=== PATIENT | male | born 1930 | race Caucasian/White ===

== ENCOUNTER 2017-08-21 00:12 | Inpatient (IN) | payer MEDICARE ==
[2017-08-21 02:22] LABS: INR-International Normal Ratio 1.2; Prothrombin Time 15.6 SEC (12.0-14.7)
[2017-08-21 02:27] LABS: #Eosinphils 0.1 thou/uL (0.0-0.7); #Lymphocytes 1.3 thou/uL (1.20-3.40); #Monocytes 0.6 thou/uL (0.11-0.59); %Basophils 0.2 % (0.0-1.0); %Eosinophils 2.3 % (0.0-10.0); %Lymphocytes 25.4 % (21.0-51.0); %Monocytes 12.2 % (0.0-10.0); Hemoglobin 11.3 g/dL (14.0-18.0); Mean Corpuscular HGB CONC 33.9 g/dL (32.0-36.0); Mean Corpuscular Hemoglobin 32.7 pg (27.0-31.0); Mean Corpuscular Volume 96.3 fl (80.0-94.0); Mean Platelet Volume 6.6 fL (7.4-10.4); Platelet Count 226 thou/uL (130-400); RBC Distribution Width 14.7 % (11.5-14.5); Red Blood Cell (RBC) Count 3.46 mill/uL (4.70-6.10); White Blood Cell (WBC) Count 4.9 thou/uL (4.8-10.8)
[2017-08-21 02:38] LABS: ALT (SGPT) 21 U/L (8-55); AST (SGOT) 54 U/L (5-34); Albumin 4.1 g/dL (3.4-4.8); Alkaline Phosphatase 59 U/L (40-150); Anion Gap 13 mmol/L (10-20); BUN (Urea Nitrogen) 39 mg/dL (8.4-25.7); Bilirubin, Total 0.7 mg/dL (0.2-1.2); CK (CPK) 1038 U/L (30-200); Calc. Creatinine Clearance 0 mL/min (70-130); Calcium 9.2 mg/dL (7.8-10.44); Carbon Dioxide 23 mmol/L (23-31); Chloride 107 mmol/L (98-107); Estimated GFR-MDRD 68; Glucose 123 mg/dL (83-110); Magnesium 2.5 mg/dL (1.6-2.6); Potassium 4.5 mmol/L (3.5-5.1); Protein, Total 7.1 g/dL (5.8-8.1); Sodium 138 mmol/L (136-145)
[2017-08-21 02:42] LABS: Troponin I 0.014 ng/mL (< 0.028)
[2017-08-21 02:44] LABS: CKMB 10.5 ng/mL (0-6.6)
[2017-08-21] MEDS ORDERED: Fentanyl 100 MCG/2 ML VIAL ONE (03:34)
[2017-08-21 04:35] LABS: Bilirubin Small (Negative); Blood, Urine Negative (Negative); Clarity CLEAR (Clear); Glucose, Urine (Dipstick) Negative (Negative); Leukocyte Negative (Negative); Nitrite Negative (Negative); Protein, Urine (Dipstick) Negative (Neg-Trace); Specific Gravity, Urine 1.031 (1.002-1.036)
[2017-08-21 06:09] LABS: Troponin I 0.015 ng/mL (< 0.028)
[2017-08-21] MEDS ORDERED: ISOVUE-370 76%-LOCM 1 ML ONE (06:24)
--- NOTE | 2017-08-21 08:19 | RAD ---
RIGHT KNEE 3 VIEWS: INDICATION: Pain. FINDINGS: No fracture or dislocation. No joint capsular distention. Mild osteoarthritis is present. Enthesop hyte at the tibial tuberosity is seen. IMPRESSION: No acute fracture. POS: [facility]
[2017-08-21 08:42] LABS: Troponin I 0.014 ng/mL (< 0.028)
--- NOTE | 2017-08-21 08:46 | RAD ---
RADIOGRAPH OF CHEST SINGLE VIEW: COMPARISON: 08/27/15. INDICATION: Chest pain. FINDINGS: There is enlargement of the cardiac silhouette and pulmonary vasculature with bilateral perihilar pat evan opacities. No obvious effusion or discrete pneumothorax. IMPRESSION: Evidence of congestive heart failure with edema. POS: [facility]
--- NOTE | 2017-08-21 08:59 | CT ---
PRELIMINARY REPORT/[facility]/EMERGENCY AFTER HOURS PROCEDURE: EXAM: CT Head Without Intravenous Contrast CLINICAL HISTORY: 87 years old, male; Signs and symptoms; Altered mental status/memory loss; Confusion or disorientatio n; Patient HX: AMS TECHNIQUE: Axial computed tomography images of the head/brain without intravenous contrast. COMPARISON: No relevant prior studies available. FINDINGS: Brain: Age appropriate atrophy and small vessel ischemic change. No mass effect, midline shift or ext ra axial fluid collections. Ivan-white matter differentiation is normal. No hemorrhage. Ventricles: Unremarkable. No ventriculomegaly. Bones/joints: Unremarkable. No acute fracture. Soft tissues: Unremarkable. Vasculature: Carotid atherosclerotic calcification. Sinuses: Mild mucosal thickening throughout the visualized paranasal sinuses. Mastoid air cells: Unremarkable as visualized. No mastoid effusion. IMPRESSION: No acute findings. Thank you for allowing us to participate in the care of your patient. Dictated and Authenticated by: Jorge Means MD 08/21/2017 5:46 AM Central Time ([place] & [place]) FINAL REPORT CT HEAD NONCONTRAST: FINDINGS/IMPRESSION: I agree with the preliminary interpretation. No acute intracranial hemorrhage or mass effect. POS: [facility]
--- NOTE | 2017-08-21 09:28 | CT ---
PRELIMINARY REPORT/[facility]/EMERGENCY AFTER HOURS PROCEDURE: EXAM: CT Abdomen and Pelvis With Intravenous Contrast CLINICAL HISTORY: 87 years old, male; Pain; Abdominal pain; Generalized TECHNIQUE: Axial computed tomography images of the abdomen and pelvis with intravenous contrast. Coronal reformatted images were created and reviewed. CONTRAST: 100 mL of ISOVUE administered intravenously. COMPARISON: No relevant prior studies available. FINDINGS: Lower thorax: Atelectasis and linear scarring at the lung bases. The heart is enlarged. ABDOMEN: Liver: There is diffuse fatty infiltration of the liver. No masses. Gallbladder and bile ducts: Unremarkable. No calcified stones. No ductal dilation. Pancreas: Unremarkable. No mass. No ductal dilation. Spleen: Unremarkable. No splenomegaly. Adrenals: Unremarkable. No mass. Kidneys and ureters: Unremarkable. No solid mass. No hydronephrosis. There is a retroaortic left nelida l vein. Stomach and bowel: There is a fecal impaction in the rectum with more proximal constipation throughou t the colon. No obstruction. No mucosal thickening. Appendix: No findings to suggest acute appendicitis. PELVIS: Bladder: Unremarkable. No mass. Reproductive: Unremarkable as visualized. ABDOMEN and PELVIS: Intraperitoneal space: Unremarkable. No free air. No significant fluid collection. Bones/joints: There is an old compression fracture of the superior endplate of L2 with approximately 25% loss of height. No dislocation. Soft tissues: Unremarkable. Vasculature: Unremarkable. No abdominal aortic aneurysm. Lymph nodes: Unremarkable. No enlarged lymph nodes. IMPRESSION: Fecal impaction in the rectum with constipation throughout the colon. Cardiomegaly. Fatty liver. Thank you for allowing us to participate in the care of your patient. Dictated and Authenticated by: Jorge Means MD 08/21/2017 4:07 AM Central Time ([place] & [place]) FINAL REPORT CT ABDOMEN AND PELVIS WITH IV CONTRAST: Liver, spleen, and pancreas are unremarkable. Kidneys unremarkable. No hydronephrosis. Small bowel loops are normal caliber with no evidence of small bowel obstruction. Stool throughout the colon. Aorta normal caliber. I am in agreement with the preliminary report. POS: [facility]
[2017-08-21] MEDS ORDERED: Acetaminophen 325 MG TAB PO PRN (11:23)
[2017-08-21] MEDS ORDERED: Furosemide 40 MG/4 ML VIAL ONE (13:37)
--- NOTE | 2017-08-21 15:27 | EKG ---
Test Reason : Blood Pressure : / mmHG Vent. Rate : 085 BPM Atrial Rate : 300 BPM P-R Int : 000 ms QRS Dur : 078 ms QT Int : 362 ms P-R-T Axes : 000 -24 -19 degrees QTc Int : 430 ms Atrial fibrillation Abnormal ECG Confirmed by NEO GUERRERO M.D. ([id number]), movie editor GUERDA ALONSO ([id number]) on 08/21/2017 3:26:29 PM Referred By: Confirmed By:NEO GUERRERO M.D.
--- NOTE | 2017-08-21 18:55 | HP ---
DATE O ADMISSION: 08/21/2017 CHIEF COMPLAINT: Unclear. HISTORY OF PRESENT ILLNESS: The patient is an 87-year-old male, who is admitted to the [facility] with pneumonia, which was found after he was transferred from his home by the EMS. Apparently, he called EMS and he was taken to the emergency room for further evaluation with complaints of right knee and right-sided back pain. The message from the emergency room physician was that he might hav e pneumonia, but based on the current chest x-ray, this is more consistent with some mild CHF. His B [employer] DES[employer] CONSULT[employer] was mildly elevated. Clinically, it is difficult to assess him since he does not let me evaluate him and do my examination. PAST MEDICAL HISTORY: 1. Atrial fibrillation. 2. Dementia. PAST SURGICAL HISTORY: Appendectomy. ALLERGIES: None. SOCIAL HISTORY: Unknown. FAMILY HISTORY: Unknown. REVIEW OF SYSTEMS: Unobtainable since the patient does not want to cooperate. PHYSICAL EXAMINATION: GENERAL: He is almost combative not let me examined him. VITAL SIGNS: His blood pressure is 92/54, pulse is 75, respiratory rate is 17, and pulse oximetry is 95% on room air, and temperature is 99.7. LUNGS: Rales scattered at both bases. No wheezing. HEART: S1 and S2 normal. No S3, no S4. ABDOMEN: Soft, nondistended. Neurological and rest of the examination was postponed since he is not very cooperative. LABORATORY DATA: Showed normal electrolytes, BUN of 39, creatinine 1.04, glucose 123, AST 54, creati nine 1, CO2 of 8, BNP 511. Troponin 0.015 and 0.014. TSH 1.75. The rest of chemistry within normal limits, white count of 4.9, hemoglobin 11.3, hematocrit 33.3, platelet count is 226, MCV is 96.3. U rinalysis showed small amount of bilirubin, otherwise was within normal limits. IMAGES: Chest x-ray showed evidence of some congestive heart failure. CT of the abdomen and pelvis did not reveal any significant abnormalities except for fatty liver and some fecal impaction in the r ectum. X-ray of the knee did not show any fracture or any other dislocation and brain CT was done an d it did not show any acute abnormalities. All images were personally reviewed by me. IMPRESSION: 1. Most likely some congestive heart failure. 2. Right knee pain and back pain, which is chronic based on documentation we had in our hospital vanda e. 3. Atrial fibrillation with controlled ventricular rate. 4. Coronary artery disease and history of fall in remote time. PLAN: Admission for further evaluation to telemetry since he is in atrial fibrillation. Condition i s fair. Activity is bed rest and bathroom privileges with assistance, fall precautions. The patient received 2 gram of Rocephin in the emergency room. I do not think we need to continue that, I do no t see any evidence of infection/pneumonia. I would like to probably obtain his echo and diurese him with IV Lasix. We will try to find out more about his medical status with a subsequent serial encoun ters. We will do DVT prophylaxis and PUD prophylaxis.
[2017-08-21] MEDS: Furosemide 40 MG/4 ML VIAL SLOW IVP SCH (23:44)
[2017-08-21 23:59] VITALS: BMI 25.9
[2017-08-22] MEDS: Sodium Chloride 0.9% 1,000 ML IV SCH ×3 (00:25→11:33)
[2017-08-22] MEDS: cefTRIAXone\\ROCEPHIN 1 GM, Syringe 0.4 ML in Sterile Water 9.6 ML SLOW IVP SCH (06:34)
[2017-08-22] MEDS: Furosemide 40 MG/4 ML VIAL SLOW IVP SCH ×2 (07:09→14:25)
[2017-08-22] MEDS: Enoxaparin Sodium 40 MG/0.4 ML SYRINGE SC SCH (08:45)
[2017-08-22] MEDS ORDERED: cefTRIAXone\\ROCEPHIN 1 GM in Sodium Chloride 0.9% 100 ML IVPB SCH (09:00)
[2017-08-22] MEDS ORDERED: Sodium Chloride 0.9% 1,000 ML IV SCH ×3 (09:29→16:44)
[2017-08-22] MEDS ORDERED: Docusate 100 MG CAP PO PRN (09:33)
[2017-08-22] MEDS ORDERED: Bisacodyl 10 MG SUPP PR PRN (09:33)
[2017-08-22] MEDS ORDERED: hydrALAZINE 20 MG/ML VIAL SLOW IVP PRN (09:33)
[2017-08-22] MEDS ORDERED: Fleet Enema 133 ML BOT PR SCH (09:45)
[2017-08-22] MEDS: Fleet Enema 133 ML BOT PR SCH ×3 (11:32→22:54)
[2017-08-22 12:02] LABS: Anion Gap 11 mmol/L (10-20); BUN (Urea Nitrogen) 28 mg/dL (8.4-25.7); Band 1 % (5-11); Calc. Creatinine Clearance 45 mL/min (70-130); Calcium 8.9 mg/dL (7.8-10.44); Carbon Dioxide 30 mmol/L (23-31); Chloride 105 mmol/L (98-107); Eosinophils 7 % (0-10); Estimated GFR-MDRD 55; Glucose 99 mg/dL (83-110); Lymphocytes 42 % (21-51); MDiff Complete? YES; Mean Corpuscular HGB CONC 33.8 g/dL (32.0-36.0); Mean Corpuscular Hemoglobin 33.2 pg (27.0-31.0); Mean Corpuscular Volume 98.2 fl (80.0-94.0); Mean Platelet Volume 6.1 fL (7.4-10.4); Monocytes 6 % (0-10); Neutrophil 44 % (42-75); Platelet Count 230 thou/uL (130-400); Potassium 3.7 mmol/L (3.5-5.1); RBC Distribution Width 14.6 % (11.5-14.5); Sodium 142 mmol/L (136-145); Toxic Granulation SLIGHT
[2017-08-22] MEDS: traMADol HCl 50 MG TAB PO PRN (13:11)
--- NOTE | 2017-08-22 15:04 | CT ---
CHEST CT NONCONTRAST: Clinical history: Shortness of breath. Pneumonia. FINDINGS: There is enlargement of the cardiac chambers. There are bilateral subpleural patchy ground glass opac ities as well as interstitial septal thickening. There is a focus of reticular nodularity of the righ t lung adjacent the right minor fissure within the right upper lobe. Trace pleural fluid versus pleur al thickening present bilaterally. The osseous structures reveal degenerative change. There is partia l visualization of a compression deformity of the L2 segment. Scattered vascular calcification is pre sent. IMPRESSION: 1. Scattered areas of pulmonary parenchymal opacity as above, some of which may be related to atelect asis although there is a component of reticular nodularity that suggests an atypical infection. Follo w up to resolution is recommended. 2. Prominent cardiac chambers and scattered vascular disease. 3. Incidental note of cholelithiasis. Correlate clinically. POS: [facility]
--- NOTE | 2017-08-22 16:47 | PDOC.PN ---
- Subjective Encounter Start Date: 08/22/17 Encounter Start Time: 16:45 breathing better some cough no n/v no f/c - Objective Resuscitation Status: Resuscitation Status DNR:Do Not Resuscitate MAR Reviewed: Yes Vital Signs & Weight: Vital Signs (12 hours) Temp Pulse Resp BP Pulse Ox 08/22/17 12:50 80 18 111/68 98 08/22/17 08:35 97.8 F 84 16 118/68 95 Weight Weight 165 lb 9.6 oz I&O: 08/21/17 08/22/17 08/23/17 06:59 06:59 06:59 Intake Total 900 600 Output Total 600 Balance 300 600 Result Diagrams: 08/22/17 11:33 08/22/17 11:33 Phys Exam - Physical Examination Constitutional: NAD HEENT: PERRLA Neck: no JVD coarse bs, dependent crackles Cardiovascular: RRR Gastrointestinal: non-tender Musculoskeletal: pulses present Neurological: moves all 4 limbs Psychiatric: A&O x 3 Dx/Plan (1) Acute diastolic CHF (congestive heart failure) Code(s): I50.31 - ACUTE DIASTOLIC (CONGESTIVE) HEART FAILURE Status: Acute (2) Constipation Code(s): K59.00 - CONSTIPATION, UNSPECIFIED Status: Acute (3) Atypical pneumonia Code(s): J18.9 - PNEUMONIA, UNSPECIFIED ORGANISM Status: Acute (4) Physical deconditioning Code(s): R53.81 - OTHER MALAISE Status: Acute (5) CAD (coronary artery disease) Code(s): I25.10 - ATHSCL HEART DISEASE OF [place] CORONARY ARTERY W/O ANG PCTRS Status: Chronic - Plan * f/u cultures * f/u lytes * symp rx * pt/ot
[2017-08-22] MEDS: Atorvastatin Calcium 20 MG TAB PO SCH (22:54)
[2017-08-23] MEDS: traMADol HCl 50 MG TAB PO PRN ×2 (05:55→17:11)
[2017-08-23] MEDS: cefTRIAXone\\ROCEPHIN 1 GM, Syringe 0.4 ML in Sterile Water 9.6 ML SLOW IVP SCH (05:55)
[2017-08-23 07:36] LABS: #Eosinphils 0.1 thou/uL (0.0-0.7); #Lymphocytes 1.1 thou/uL (1.20-3.40); #Monocytes 0.4 thou/uL (0.11-0.59); #Neutrophils 1.4 thou/uL (1.40-6.50); %Basophils 0.4 % (0.0-1.0); %Eosinophils 3.7 % (0.0-10.0); %Lymphocytes 36.4 % (21.0-51.0); %Monocytes 13.2 % (0.0-10.0); %Neutrophils 46.2 % (42.0-75.0); Hemoglobin 12.3 g/dL (14.0-18.0); Mean Corpuscular HGB CONC 34.2 g/dL (32.0-36.0); Mean Corpuscular Hemoglobin 33.2 pg (27.0-31.0); Mean Platelet Volume 6.4 fL (7.4-10.4); Platelet Count 231 thou/uL (130-400); RBC Distribution Width 14.3 % (11.5-14.5); Red Blood Cell (RBC) Count 3.71 mill/uL (4.70-6.10); White Blood Cell (WBC) Count 2.9 thou/uL (4.8-10.8)
[2017-08-23 07:53] LABS: Digoxin Less than 0.15 ng/mL (0.8-2.0)
[2017-08-23 07:56] LABS: Albumin 3.7 g/dL (3.4-4.8); Anion Gap 15 mmol/L (10-20); BUN (Urea Nitrogen) 29 mg/dL (8.4-25.7); CK (CPK) 218 U/L (30-200); Calc. Creatinine Clearance 57 mL/min (70-130); Calcium 8.4 mg/dL (7.8-10.44); Carbon Dioxide 23 mmol/L (23-31); Chloride 106 mmol/L (98-107); Estimated GFR-MDRD 73; Glucose 104 mg/dL (83-110); Phosphorus 3.3 mg/dL (2.3-4.7); Potassium 3.8 mmol/L (3.5-5.1); Sodium 140 mmol/L (136-145)
[2017-08-23] MEDS: Digoxin 0.125 MG TAB PO SCH (08:38)
[2017-08-23] MEDS: Enoxaparin Sodium 40 MG/0.4 ML SYRINGE SC SCH (08:39)
--- NOTE | 2017-08-23 18:33 | PDOC.PN ---
- Subjective Encounter Start Date: 08/23/17 Encounter Start Time: 18:31 breathing better on puree diet still slow to answer question no f/c - Objective Resuscitation Status: Resuscitation Status DNR:Do Not Resuscitate MAR Reviewed: Yes Vital Signs & Weight: Vital Signs (12 hours) Temp Pulse Pulse Pulse Resp BP BP 08/23/17 15:57 98.3 F 73 17 08/23/17 14:00 87 95 127/73 139/87 08/23/17 11:15 98.2 F 67 17 08/23/17 08:38 67 08/23/17 07:05 97.6 F 72 18 BP BP Pulse Ox 08/23/17 15:57 126/80 96 08/23/17 14:00 08/23/17 11:15 99/59 L 93 L 08/23/17 08:38 08/23/17 07:05 116/62 95 Weight Weight 162 lb 11.2 oz I&O: 08/22/17 08/23/17 08/24/17 06:59 06:59 06:59 Intake Total 900 2765 Output Total 600 1050 Balance 300 1715 Result Diagrams: 08/23/17 07:24 08/23/17 07:24 Phys Exam - Physical Examination Constitutional: NAD HEENT: PERRLA Neck: no JVD coarse bs Cardiovascular: no significant murmur Gastrointestinal: non-tender Musculoskeletal: pulses present Neurological: moves all 4 limbs Psychiatric: A&O x 3 Dx/Plan (1) Acute diastolic CHF (congestive heart failure) Code(s): I50.31 - ACUTE DIASTOLIC (CONGESTIVE) HEART FAILURE Status: Acute (2) Constipation Code(s): K59.00 - CONSTIPATION, UNSPECIFIED Status: Acute (3) Atypical pneumonia Code(s): J18.9 - PNEUMONIA, UNSPECIFIED ORGANISM Status: Acute (4) Physical deconditioning Code(s): R53.81 - OTHER MALAISE Status: Acute (5) CAD (coronary artery disease) Code(s): I25.10 - ATHSCL HEART DISEASE OF [place] CORONARY ARTERY W/O ANG PCTRS Status: Chronic - Plan * cont diuresis * cont abx * deconditioned- family wants hh instead of snf * monitor mental status
[2017-08-24] MEDS: Atorvastatin Calcium 20 MG TAB PO SCH ×2 (02:23→22:54)
[2017-08-24 05:18] LABS: #Basophils 0.1 thou/uL (0.0-0.2); #Eosinphils 0.2 thou/uL (0.0-0.7); #Lymphocytes 1.4 thou/uL (1.20-3.40); #Monocytes 0.4 thou/uL (0.11-0.59); %Basophils 2.2 % (0.0-1.0); %Eosinophils 5.2 % (0.0-10.0); %Lymphocytes 45.4 % (21.0-51.0); %Monocytes 13.2 % (0.0-10.0); %Neutrophils 33.9 % (42.0-75.0); Hemoglobin 12.3 g/dL (14.0-18.0); Mean Corpuscular HGB CONC 33.1 g/dL (32.0-36.0); Mean Corpuscular Hemoglobin 32.3 pg (27.0-31.0); Mean Corpuscular Volume 97.5 fl (80.0-94.0); Mean Platelet Volume 6.1 fL (7.4-10.4); Platelet Count 235 thou/uL (130-400); RBC Distribution Width 14.4 % (11.5-14.5)
[2017-08-24] MEDS: cefTRIAXone\\ROCEPHIN 1 GM, Syringe 0.4 ML in Sterile Water 9.6 ML SLOW IVP SCH (05:19)
[2017-08-24 05:41] LABS: Albumin 3.5 g/dL (3.4-4.8); Anion Gap 15 mmol/L (10-20); BUN (Urea Nitrogen) 30 mg/dL (8.4-25.7); CK (CPK) 141 U/L (30-200); Calc. Creatinine Clearance 56 mL/min (70-130); Calcium 8.8 mg/dL (7.8-10.44); Carbon Dioxide 22 mmol/L (23-31); Chloride 105 mmol/L (98-107); Estimated GFR-MDRD 72; Glucose 90 mg/dL (83-110); Phosphorus 2.9 mg/dL (2.3-4.7); Potassium 3.8 mmol/L (3.5-5.1); Sodium 138 mmol/L (136-145)
[2017-08-24] MEDS: Digoxin 0.125 MG TAB PO SCH (09:53)
[2017-08-24] MEDS: Enoxaparin Sodium 40 MG/0.4 ML SYRINGE SC SCH (09:54)
[2017-08-24] MEDS ORDERED: Sodium Chloride 0.9% 250 ML IVPB SCH (15:30)
[2017-08-24 15:44] LABS: Digoxin 0.31 ng/mL (0.8-2.0)
--- NOTE | 2017-08-24 16:48 | PDOC.PN ---
- Subjective Encounter Start Date: 08/24/17 Encounter Start Time: 16:47 pt breathing better no f/c no n/v more alert - Objective Resuscitation Status: Resuscitation Status DNR:Do Not Resuscitate MAR Reviewed: Yes Vital Signs & Weight: Vital Signs (12 hours) Temp Pulse Resp BP BP Pulse Ox 08/24/17 14:54 95/61 08/24/17 11:23 96.2 F L 66 16 86/57 L 97 08/24/17 09:53 69 08/24/17 07:05 98.1 F 73 12 142/89 H 99 Weight Weight 166 lb 3.2 oz I&O: 08/23/17 08/24/17 08/25/17 06:59 06:59 06:59 Intake Total 2765 0 Output Total 1050 Balance 1715 0 Result Diagrams: 08/24/17 04:20 08/24/17 04:20 Phys Exam - Physical Examination Constitutional: NAD HEENT: PERRLA Neck: no JVD coarse bs Cardiovascular: no significant murmur Gastrointestinal: non-tender Musculoskeletal: pulses present Neurological: moves all 4 limbs Psychiatric: A&O x 3 Dx/Plan (1) Acute diastolic CHF (congestive heart failure) Code(s): I50.31 - ACUTE DIASTOLIC (CONGESTIVE) HEART FAILURE Status: Acute Comment: ef-55% (2) Constipation Code(s): K59.00 - CONSTIPATION, UNSPECIFIED Status: Acute (3) Atypical pneumonia Code(s): J18.9 - PNEUMONIA, UNSPECIFIED ORGANISM Status: Acute (4) Physical deconditioning Code(s): R53.81 - OTHER MALAISE Status: Acute (5) CAD (coronary artery disease) Code(s): I25.10 - ATHSCL HEART DISEASE OF [place] CORONARY ARTERY W/O ANG PCTRS Status: Chronic - Plan * had e/o hypotension- responded to 250 cc of ns. monitor bp. hold diuresis * cont abx * deconditioned- family wants hh instead of snf * monitor mental status * d/c home in am if doing better
[2017-08-24] MEDS ORDERED: Haloperidol Lactate 5 MG/ML VIAL SLOW IVP SCH (22:45)
[2017-08-25] MEDS: cefTRIAXone\\ROCEPHIN 1 GM, Syringe 0.4 ML in Sterile Water 9.6 ML SLOW IVP SCH (05:37)
[2017-08-25 06:51] LABS: Anion Gap 12 mmol/L (10-20); BUN (Urea Nitrogen) 25 mg/dL (8.4-25.7); CK (CPK) 108 U/L (30-200); Calc. Creatinine Clearance 65 mL/min (70-130); Calcium 8.7 mg/dL (7.8-10.44); Carbon Dioxide 24 mmol/L (23-31); Chloride 106 mmol/L (98-107); Estimated GFR-MDRD 82; Glucose 111 mg/dL (83-110); Potassium 3.9 mmol/L (3.5-5.1); Sodium 138 mmol/L (136-145)
[2017-08-25] MEDS: Enoxaparin Sodium 40 MG/0.4 ML SYRINGE SC SCH (08:55)
[2017-08-25] MEDS: Digoxin 0.125 MG TAB PO SCH (08:55)
--- NOTE | 2017-08-25 13:24 | PDOC.PN ---
- Subjective Encounter Start Date: 08/25/17 Encounter Start Time: 08:40 Pt seen for followup re: bradycardia. Denies chest pain or shortness of breath. - Objective Resuscitation Status: Resuscitation Status DNR:Do Not Resuscitate MAR Reviewed: Yes Vital Signs & Weight: Vital Signs (12 hours) Temp Pulse Resp BP Pulse Ox 08/25/17 12:23 97.0 F L 63 16 103/62 100 08/25/17 08:55 59 L 08/25/17 08:00 98.1 F 59 L 18 145/82 H 99 08/25/17 04:00 98.8 F 51 L 18 109/64 100 Weight Weight 167 lb 8 oz I&O: 08/24/17 08/25/17 08/26/17 06:59 06:59 06:59 Intake Total 0 0 120 Balance 0 0 120 Result Diagrams: 08/24/17 04:20 08/25/17 05:51 EKG Reviewed by me: Yes (Tele: a. fib with slow ventricular response) Phys Exam - Physical Examination Constitutional: NAD HEENT: moist MMs Neck: supple Respiratory: clear to auscultation bilateral Cardiovascular: no rub, irregular Gastrointestinal: soft Neurological: moves all 4 limbs Psychiatric: normal affect Dx/Plan (1) Bradycardia Code(s): R00.1 - BRADYCARDIA, UNSPECIFIED Status: Acute (2) Atypical pneumonia Code(s): J18.9 - PNEUMONIA, UNSPECIFIED ORGANISM Status: Acute (3) Atrial fibrillation Code(s): I48.91 - UNSPECIFIED ATRIAL FIBRILLATION Status: Chronic Qualifiers: Atrial fibrillation type: chronic Qualified Code(s): I48.2 - Chronic atrial fibrillation Comment: Rate control only, anticoagulation contraindicated due to fall risk. (4) CAD (coronary artery disease) Code(s): I25.10 - ATHSCL HEART DISEASE OF [place] CORONARY ARTERY W/O ANG PCTRS Status: Chronic - Plan continue antibiotics, PT/OT, out of bed/ambulate * . Continue levofloxacin. Consult cardiology re: a. fib with slow ventricular response. Eventual discharge to home with home health services. Review of Systems - Review of Systems Respiratory: negative: Cough, Dry, Shortness of Breath, Hemoptysis, SOB with Excertion, Pleuritic Pain, Sputum, Wheezing Cardiovascular: negative: chest pain, palpitations, orthopnea, paroxysmal nocturnal dyspnea, edema, light headedness - Medications/Allergies Allergies/Adverse Reactions: Allergies Allergy/AdvReac Type Severity Reaction Status Date / Time No Known Drug Allergies Allergy Verified 08/21/17 23:55 Medications: Current Medications Acetaminophen (Tylenol) 650 mg PO Q4H PRN PRN Reason: Headache/Fever or Pain Atorvastatin Calcium (Lipitor) 20 mg PO HS [facility] Last Admin: 08/24/17 22:54 Dose: Not Given Bisacodyl (Dulcolax) 10 mg AR DAILYPRN PRN PRN Reason: Constipation Digoxin (Lanoxin) 0.125 mg PO DAILY [facility] Last Admin: 08/25/17 08:55 Dose: 0.125 mg Docusate Sodium (Colace) 100 mg PO BIDPRN PRN PRN Reason: Constipation Enoxaparin Sodium (Lovenox) 40 mg SC 0900 [facility] Last Admin: 08/25/17 08:55 Dose: 40 mg Hydralazine HCl (Apresoline) 10 mg SLOW IVP Q4H PRN PRN Reason: Systolic BP > 180 Ceftriaxone Sodium 1 gm/ (Syringe 0.4 ml/ Sterile Water) 10 mls @ 120 mls/hr SLOW IVP 0500 [facility] Last Admin: 08/25/17 05:37 Dose: 10 mls Levofloxacin (Levaquin) 500 mg PO 0600 [facility] Last Admin: 08/25/17 05:42 Dose: Not Given Tramadol HCl (Ultram) 50 mg PO Q6H PRN PRN Reason: Pain Last Admin: 08/23/17 17:11 Dose: 50 mg
[2017-08-25] MEDS: Atorvastatin Calcium 20 MG TAB PO SCH (20:02)
[2017-08-26] MEDS: cefTRIAXone\\ROCEPHIN 1 GM, Syringe 0.4 ML in Sterile Water 9.6 ML SLOW IVP SCH (05:44)
--- NOTE | 2017-08-26 06:02 | CON ---
DATE OF CONSULTATION: 08/25/2017 REASON FOR CONSULTATION: Bradycardia. HISTORY OF PRESENT ILLNESS: Mr. Zhao is a pleasant 87-year-old gentleman with history of dementi a and what appears to be chronic atrial fibrillation and has had some mild bradycardia here. Patient was admitted to the hospital on 08/21/2017, at that time, was having some difficulty breathing. It was decided that he was probably in mild congestive heart failure. The patient was given some diuret ics. The patient was also given some antibiotics, has been feeling well now, but he has had some mild karol ycardia, the last day or two. He is on digoxin. Other history is somewhat limited due to his dementia. PAST MEDICAL HISTORY: 1. Atrial fibrillation. 2. Dementia. PAST SURGICAL HISTORY: Appendectomy. ALLERGIES: None known. FAMILY HISTORY: Unknown. REVIEW OF SYSTEMS: Not obtainable. He is not able to give review of systems. PHYSICAL EXAMINATION: GENERAL: A relaxed elderly gentleman resting comfortably in no distress. He thinks it is in the 190 0s. He does not know where he is. VITAL SIGNS: Pulse is low 60s, irregular. HEENT: Eyes, sclerae nonicteric. Mouth, mucous membranes moist. NECK: Supple, no lymphadenopathy. LUNGS: Clear, no wheezing, rales, or rhonchi. CARDIAC: Irregularly, irregular. No murmur, rub, or gallop. ABDOMEN: Soft, nontender, no hepatosplenomegaly. EXTREMITIES: Warm, dry, no clubbing, no cyanosis, or edema. LABORATORY AND X-RAY FINDINGS: Digoxin level was low at 0.31. Echocardiogram revealed an ejection f raction of 55% to 60%, mildly enlarged left atrium, moderate to severe tricuspid insufficiency. ASSESSMENT: 1. Congestive heart failure, diastolic with a BNP of 511 on admission. 2. Heart rate below 60 at times on low dose digoxin. PLAN: 1. Stop digoxin. 2. Appears to be a poor candidate for anticoagulation with severe dementia. 3. Add a daily diuretic. No other recommendations. Patient could be released home from the [facility], I suspect for placement some place.
[2017-08-26] MEDS ORDERED: Potassium Chloride 10 MEQ TAB PO SCH (08:00)
[2017-08-26] MEDS ORDERED: Furosemide 20 MG TAB PO SCH (09:00)
[2017-08-26] MEDS: Enoxaparin Sodium 40 MG/0.4 ML SYRINGE SC SCH (09:12)
--- NOTE | 2017-08-26 10:21 | DIS ---
DATE OF ADMISSION: 08/21/2017 DATE OF DISCHARGE: 08/26/2017 PRIMARY CARE PHYSICIAN: Arjun Murphy MD DISCHARGE DIAGNOSES: 1. Atypical pneumonia. 2. Congestive heart failure. CONDITION OF PATIENT ON THE DAY OF DISCHARGE: Stable. I assessed Mr. Zhao on the day of the dis charge. He denies any chest pain or shortness of breath. Vital signs are stable. S1 and S2 are hea rd, irregular. Lungs are clear to auscultation bilaterally. DISCHARGE MEDICATIONS: Aspirin 81 mg daily, Lasix 20 mg daily, potassium chloride 10 mEq daily, levo floxacin 500 mg daily for 9 more days, Zocor 40 mg at bedtime. CONSULTATIONS DURING THIS HOSPITALIZATION: Cardiology, Dr. Schroeder. HOSPITAL COURSE: Mr. Zhao is a pleasant 87-year-old gentleman who was admitted to [facility] for congestive heart failure as well as possible atypical pneumonia. CT scan of the chest done on 08/22/2017, showed scattered areas of pulmonary parenchymal opacity, some of which may be related to atelectasis, although there was a component of reticulate nodularity that suggested an atypical infection. He also had cholelithiasis. A 2D echocardiogram on 08/22/2017, showed left ventricular ejection fraction of 55% to 60%, mildly dilated left atrium, moderately enlarged right at rium, mildly enlarged right ventricle, normal left ventricular size, moderate to severe tricuspid reg urgitation, and mild to moderate mitral regurgitation. He improved with diuretics as well as antibiotics. I assumed his care on 08/25/2017. He has a history of chronic atrial fibrillation. On 08/25/2017, [place] was noted to be bradycardic. He was seen by Cardiology Service. Digoxin was discontinued, with im provement of his heart rate. Cardiology felt that he was a poor candidate for anticoagulation alexmarck e of severe dementia. He was started on diuretic as well as potassium replacement and is being disch arged home in a stable condition. He will need home health arranged through his primary care physici an's office. On 08/25/2017, he had normal electrolytes, normal creatinine. On 08/24/2017, he had a white count 30 00, hemoglobin 12.3 and platelet count 235,000. During this hospitalization, he had a normal TSH, BN P elevated at 511, normal troponin I, CK elevated at 1038 on 08/21/2017, and normal lactic acid. Many times for allowing me to participate in your patient's care. Please feel free to contact me wit h any questions or concerns. DISCHARGE DESTINATION: Home. TOTAL AMOUNT OF TIME SPENT COORDINATING THIS DISCHARGE: 32 minutes.
[2017-08-26 12:42] VITALS: BP 101/61; TEMP 97.1
== END 2017-08-26 16:23 | disposition home health service (06) | DRG 291 ==
LOC: ERS 00:12 → ERHOLD 04:48 → 2NO 21:15
PROVIDERS: ADMIT Internal Medicine; ATTEND Internal Medicine
DX: I50.31 Acute diastolic (congestive) heart failure (principal); J18.9 Pneumonia, unspecified organism; M62.82 Rhabdomyolysis; I48.2 Chronic atrial fibrillation; I08.1 Rheumatic disorders of both mitral and tricuspid valves; F03.90 Unspecified dementia, unspecified severity, without behavioral disturbance, psychotic disturbance, mood disturbance, and anxiety; M25.561 Pain in right knee; G89.29 Other chronic pain; M54.9 Dorsalgia, unspecified; I25.10 Atherosclerotic heart disease of native coronary artery without angina pectoris; Z91.81 History of falling; R00.1 Bradycardia, unspecified; K59.00 Constipation, unspecified
CPT/HCPCS: 36415; 51701; 70450; 71045; 71250; 74177; 80048; 80053; 80069; 80162; 81003; 82550; 82553; 83605; 83735; 83880; 84443; 84484; 85025; 85610; 87040; 87086; 93005; 93306; 96361; 96365; 96375; A4216; G8978-GP-CL; G8979-GP-CJ; G8996-GN-CJ; G8997-GN-CJ; J0696; J1630; J1650; J1940; J3010; J7050

== ENCOUNTER 2017-08-28 10:14 | Emergency (ER) | payer MEDICARE ==
[2017-08-28 11:41] LABS: Hemoglobin 12.4 g/dL (14.0-18.0); Mean Corpuscular HGB CONC 33.6 g/dL (32.0-36.0); Mean Corpuscular Hemoglobin 32.5 pg (27.0-31.0); Mean Corpuscular Volume 96.7 fl (80.0-94.0); Mean Platelet Volume 6.1 fL (7.4-10.4); Platelet Count 232 thou/uL (130-400); RBC Distribution Width 14.3 % (11.5-14.5); Red Blood Cell (RBC) Count 3.83 mill/uL (4.70-6.10); White Blood Cell (WBC) Count 2.8 thou/uL (4.8-10.8)
[2017-08-28 11:42] LABS: INR-International Normal Ratio 1.2; PTT 37.4 SEC (22.9-36.1); Prothrombin Time 15.7 SEC (12.0-14.7)
[2017-08-28 12:00] LABS: ALT (SGPT) 44 U/L (8-55); AST (SGOT) 57 U/L (5-34); Alkaline Phosphatase 58 U/L (40-150); Anion Gap 16 mmol/L (10-20); BUN (Urea Nitrogen) 35 mg/dL (8.4-25.7); Bilirubin, Total 0.7 mg/dL (0.2-1.2); CK (CPK) 263 U/L (30-200); Calc. Creatinine Clearance 0 mL/min (70-130); Calcium 8.9 mg/dL (7.8-10.44); Carbon Dioxide 21 mmol/L (23-31); Chloride 107 mmol/L (98-107); Estimated GFR-MDRD 68; Glucose 110 mg/dL (83-110); Potassium 4.1 mmol/L (3.5-5.1); Sodium 140 mmol/L (136-145)
[2017-08-28 12:02] LABS: CKMB 4.9 ng/mL (0-6.6); Troponin I Less than 0.010 ng/mL (< 0.028)
[2017-08-28 12:09] LABS: Lymphocytes 22 % (21-51); MDiff Complete? YES; Monocytes 14 % (0-10); Neutrophil 64 % (42-75); PLT Morphology Comment Appears Adequate; RBC Morphology Normal
--- NOTE | 2017-08-28 12:12 | RAD ---
UPRIGHT PORTABLE CHEST 1 VIEW: Date: 08/28/17 HISTORY: 87-year-old male with altered mental status following a fall at home. COMPARISON: 08/21/17. FINDINGS: There is rotation to the left. Minimal cardiomegaly. Atherosclerosis of aorta. No confluent pneumonia , overt edema, or pleural effusion. IMPRESSION: Atherosclerosis of the aorta. No acute intrathoracic disease. No evidence for pneumonia. POS: [facility]
--- NOTE | 2017-08-28 12:35 | CT ---
BRAIN CT WITHOUT IV CONTRAST: Date: 08/28/17 HISTORY: 87-year-old male with history of dementia, with alleged fall. COMPARISON: 08/21/17. FINDINGS: Stable atrophy and chronic white matter ischemic change. No mass or acute hemorrhage. Sinuses and mas toids are clear. IMPRESSION: Stable atrophy and chronic white matter ischemic change. No mass or bleed. Unchanged from prior stud y of 08/21/17. POS: [facility]
[2017-08-28 12:41] LABS: Bilirubin Negative (Negative); Blood, Urine Moderate (Negative); Clarity CLEAR (Clear); Glucose, Urine (Dipstick) Negative (Negative); Leukocyte Negative (Negative); Nitrite Negative (Negative); Protein, Urine (Dipstick) Trace mg/dL (Neg-Trace)
[2017-08-28 12:43] LABS: Bacteria/HPF None Seen HPF (None Seen); Hyaline Casts/LPF 0-3 HYALINE CAST LPF (0-3 Hyaline); Pathc Cast-AUWi Flag 0.13 (0-2.49); Squamous Epithelial 0-3 HPF (0-3); WBC/HPF 0-3 HPF (0-3)
--- NOTE | 2017-09-11 19:04 | EKG ---
Test Reason : AMS Blood Pressure : / mmHG Vent. Rate : 093 BPM Atrial Rate : 340 BPM P-R Int : 000 ms QRS Dur : 068 ms QT Int : 332 ms P-R-T Axes : 000 -32 -20 degrees QTc Int : 412 ms Atrial fibrillation with premature ventricular or aberrantly conducted complexes Left axis deviation Cannot rule out Anterior infarct , age undetermined Abnormal ECG Severe artifact Confirmed by ARTEMIO MILNER MD ([id number]), digital editor RADHA BECKFORD ([id number]) on 09/11/2017 7:04:09 PM Referred By: Confirmed By:ARTEMIO MILNER MD
== END 2017-08-28 14:54 | disposition home or self-care (01) ==
LOC: ERS 10:14
DX: S01.302A Unspecified open wound of left ear, initial encounter (principal); I48.91 Unspecified atrial fibrillation; F03.90 Unspecified dementia, unspecified severity, without behavioral disturbance, psychotic disturbance, mood disturbance, and anxiety; W01.0XXA Fall on same level from slipping, tripping and stumbling without subsequent striking against object, initial encounter
CPT/HCPCS: 36415; 36416; 51701; 70450; 71045; 80053; 81003; 81015; 82550; 82553; 83605; 84484; 85025; 85610; 85730; 87040; 87086; 93005

== ENCOUNTER 2017-09-02 22:11 | Emergency (ER) | payer MEDICARE ==
--- NOTE | 2017-09-02 23:43 | RAD ---
THREE VIEWS LEFT FOOT 09/02/17 HISTORY: [place]. FINDINGS: There is mild osteoarthritis involving the first metatarsophalangeal joint as well as the first tarso metatarsal joint. There is no evidence of a fracture or dislocation seen. No osseous destruction is a ppreciated. There is suggestion of mild subcutaneous soft tissue swelling at the dorsal aspect of the forefoot. IMPRESSION: 1. Mild osteoarthritis, but no acute osseous abnormality seen involving the left foot. 2. Mild subcutaneous soft tissue swelling dorsal aspect of the forefoot. POS: [facility]
== END 2017-09-03 00:41 | disposition home or self-care (01) ==
LOC: ERS 22:11
DX: S90.222A Contusion of left lesser toe(s) with damage to nail, initial encounter (principal); F03.90 Unspecified dementia, unspecified severity, without behavioral disturbance, psychotic disturbance, mood disturbance, and anxiety; I48.91 Unspecified atrial fibrillation; Z79.82 Long term (current) use of aspirin; Z79.899 Other long term (current) drug therapy; X31.XXXA Exposure to excessive natural cold, initial encounter

== ENCOUNTER 2017-11-22 11:49 | Emergency (ER) | payer MEDICARE | END 2017-11-22 13:10 | disposition home or self-care (01) | LOC: ERS 11:49 | DX: B02.9 Zoster without complications (principal); F03.90 Unspecified dementia, unspecified severity, without behavioral disturbance, psychotic disturbance, mood disturbance, and anxiety; I48.91 Unspecified atrial fibrillation; I50.9 Heart failure, unspecified | CPT/HCPCS: 99285 ==

== ENCOUNTER 2017-12-11 12:42 | Inpatient (IN) | payer MEDICARE ==
[2017-12-11 13:30] LABS: #Lymphocytes 1.9 thou/uL (1.20-3.40); #Monocytes 0.5 thou/uL (0.11-0.59); #Neutrophils 6.1 thou/uL (1.40-6.50); %Basophils 0.1 % (0.0-1.0); %Eosinophils 0.3 % (0.0-10.0); %Lymphocytes 22.6 % (21.0-51.0); %Monocytes 5.5 % (0.0-10.0); %Neutrophils 71.6 % (42.0-75.0); Hemoglobin 11.9 g/dL (14.0-18.0); Mean Corpuscular HGB CONC 34.6 g/dL (32.0-36.0); Mean Corpuscular Hemoglobin 33.2 pg (27.0-31.0); Mean Corpuscular Volume 95.9 fl (80.0-94.0); Mean Platelet Volume 6.3 fL (7.4-10.4); Platelet Count 339 thou/uL (130-400); RBC Distribution Width 15.4 % (11.5-14.5); Red Blood Cell (RBC) Count 3.58 mill/uL (4.70-6.10); White Blood Cell (WBC) Count 8.5 thou/uL (4.8-10.8)
[2017-12-11] MEDS ORDERED: Acetaminophen 650 MG Suppository ONE (13:48)
[2017-12-11 13:51] LABS: ALT (SGPT) 8 U/L (8-55); AST (SGOT) 13 U/L (5-34); Albumin 3.9 g/dL (3.4-4.8); Alkaline Phosphatase 87 U/L (40-150); Anion Gap 17 mmol/L (10-20); BUN (Urea Nitrogen) 20 mg/dL (8.4-25.7); Bilirubin, Total 1.2 mg/dL (0.2-1.2); Calc. Creatinine Clearance 0 mL/min (70-130); Calcium 8.9 mg/dL (7.8-10.44); Carbon Dioxide 21 mmol/L (23-31); Chloride 103 mmol/L (98-107); Estimated GFR-MDRD 72; Globulin 3.7 g/dL (2.4-3.5); Glucose 127 mg/dL (83-110); Potassium 4.2 mmol/L (3.5-5.1); Protein, Total 7.6 g/dL (5.8-8.1); Sodium 137 mmol/L (136-145)
--- NOTE | 2017-12-11 14:42 | RAD ---
PORTABLE CHEST DATE: 12/11/17. PROVIDED CLINICAL HISTORY: Cough and fever. FINDINGS: Comparison 08/28/17. Airspace disease at the right lung base compatible with pneumonia in the appropr iate clinical context. Cardiac silhouette appears enlarged. No pleural fluid or pneumothorax appare nt. IMPRESSION: Right basilar airspace disease compatible with pneumonia. Followup after treatment recommended to do cument resolution. POS: [facility]
[2017-12-11 16:02] LABS: Bilirubin Negative (Negative); Blood, Urine Trace (Negative); Glucose, Urine (Dipstick) Negative (Negative); Leukocyte Negative (Negative); Nitrite Negative (Negative); Protein, Urine (Dipstick) Negative (Neg-Trace); Specific Gravity, Urine 1.025 (1.005-1.030)
[2017-12-11 16:10] LABS: Clarity CLEAR (Clear); RBC/HPF None Seen HPF (0-3); Squamous Epithelial 0-3 HPF (0-3); WBC/HPF None Seen HPF (0-3)
[2017-12-11 16:11] LABS: Bacteria/HPF None Seen HPF (None Seen); Hyaline Casts/LPF NONE SEEN LPF (0-3 Hyaline)
[2017-12-11] MEDS ORDERED: Sodium Chloride 0.9% 1,000 ML IV SCH (16:15)
[2017-12-11] MEDS ORDERED: Piperacillin/Tazobactam 4.5 GM VIAL ONE (16:52)
--- NOTE | 2017-12-11 17:16 | PDOC.FPRHP ---
- History of Present Illness Chief Complaint: fever, agitation History of Present Illness: 87 yo male presents from [facility] with a fever and agitation. He has a pmhx of dementia and at baseline is a&ox1. Today he is at his baseline. Per EMS, he also was short of breath. It is difficult to obtain additional hx as he is only a&ox1. ED Course: 500ml NS and Acetaminophen 650mg - Allergies/Adverse Reactions Allergies Allergy/AdvReac Type Severity Reaction Status Date / Time No Known Drug Allergies Allergy Verified 08/21/17 23:55 - Home Medications Medication Instructions Recorded Confirmed Type Aspirin [Ecotrin Low Strength] 81 mg PO DAILY tab 03/03/17 12/11/17 Rx Simvastatin [Zocor] 40 mg PO HS 08/21/17 12/11/17 History Furosemide [Lasix] 20 mg PO DAILY #30 tab 08/26/17 12/11/17 Rx Potassium Chloride [Klor-Con 10] 10 meq PO QAM-WM #30 tab 08/26/17 12/11/17 Rx Donepezil HCl [Aricept] 5 mg PO HS 12/11/17 12/11/17 History - History PMHx:Atrial fibrillation, dementia, CHF, recent shingles, htn PSHx: appendectomy FHx: father had cancer Social: Niece has POA - Review of Systems Psychological: reports: other (unable to perform ROS 2/2 advanced dementia. Pt a &ox1.) - Vital signs BP: 114/67 HR: 93 RR: 26 Tmax: 102.9 Pox: 98% on RA Wt: 74kg - Physical Exam Constitutional: NAD, other (a&ox1 (Self)) HEENT: normocephalic and atraumatic, other (dry mucous membranes) Neck: no JVD, no thyromegaly Chest: no-tender to palpation Heart: RRR, normal S1/S2, no murmurs/rubs/gallops, no edema Lungs: CTAB, no respiratory distress, good air movement, no wheezing Abdomen: soft, non-tender, other (hypoactive bowel sounds) Musculoskeletal: other (cachectic) Neurological: other Skin: no rash/lesions, no jaundice Heme/Lymphatic: no unusual bruising or bleeding, no purpura Psychiatric: other (a&ox1 to self; no insight;) FMR H&P: Results - Labs Result Diagrams: 12/11/17 13:02 12/11/17 13:02 Lab results: WBC 8.5 thou/uL (4.8-10.8) 12/11/17 13:02 Hgb 11.9 g/dL (14.0-18.0) L 12/11/17 13:02 Hct 34.3 % (42.0-52.0) L 12/11/17 13:02 MCV 95.9 fl (80.0-94.0) H 12/11/17 13:02 Plt Count 339 thou/uL (130-400) 12/11/17 13:02 Neutrophils % 71.6 % (42.0-75.0) 12/11/17 13:02 Sodium 137 mmol/L (136-145) 12/11/17 13:02 Potassium 4.2 mmol/L (3.5-5.1) 12/11/17 13:02 Chloride 103 mmol/L (98-107) 12/11/17 13:02 Carbon Dioxide 21 mmol/L (23-31) L 12/11/17 13:02 BUN 20 mg/dL (8.4-25.7) 12/11/17 13:02 Creatinine 0.99 mg/dL (0.6-1.3) 12/11/17 13:02 Glucose 127 mg/dL (83-110) H 12/11/17 13:02 Lactic Acid 1.7 mmol/L (0.5-2.2) 12/11/17 16:32 Calcium 8.9 mg/dL (7.8-10.44) 12/11/17 13:02 Total Bilirubin 1.2 mg/dL (0.2-1.2) 12/11/17 13:02 AST 13 U/L (5-34) 12/11/17 13:02 ALT 8 U/L (8-55) 12/11/17 13:02 Alkaline Phosphatase 87 U/L (40-150) 12/11/17 13:02 Serum Total Protein 7.6 g/dL (5.8-8.1) 12/11/17 13:02 Albumin 3.9 g/dL (3.4-4.8) 12/11/17 13:02 Urine Ketones Negative mg/dL (Negative) 12/11/17 15:48 Urine Blood Trace (Negative) H 12/11/17 15:48 Urine Nitrite Negative (Negative) 12/11/17 15:48 Ur Leukocyte Esterase Negative (Negative) 12/11/17 15:48 Urine RBC None Seen HPF (0-3) 12/11/17 15:48 Urine WBC None Seen HPF (0-3) 12/11/17 15:48 Ur Squamous Epith Cells 0-3 HPF (0-3) 12/11/17 15:48 Urine Bacteria None Seen HPF (None Seen) 12/11/17 15:48 - EKG Interpretation EKG: atrial fibrillation with rvr - Radiology Interpretation Chest x-ray Status: image reviewed by me, report reviewed by me (right lung base opacity) FMR H&P: A/P - Problem List (1) Sepsis Current Visit: Yes Status: Acute Code(s): A41.9 - SEPSIS, UNSPECIFIED ORGANISM (2) Pneumonia Current Visit: Yes Status: Acute Code(s): J18.9 - PNEUMONIA, UNSPECIFIED ORGANISM (3) Dementia Current Visit: Yes Status: Acute Code(s): F03.90 - UNSPECIFIED DEMENTIA WITHOUT BEHAVIORAL DISTURBANCE (4) Atrial fibrillation with RVR Current Visit: Yes Status: Acute Code(s): I48.91 - UNSPECIFIED ATRIAL FIBRILLATION (5) HTN (hypertension) Current Visit: Yes Status: Acute Code(s): I10 - ESSENTIAL (PRIMARY) HYPERTENSION (6) History of shingles Current Visit: Yes Status: Acute Code(s): Z86.19 - PERSONAL HISTORY OF OTHER INFECTIOUS AND PARASITIC DISEASES (7) Acute diastolic CHF (congestive heart failure) Current Visit: No Status: Acute Code(s): I50.31 - ACUTE DIASTOLIC ( CONGESTIVE) HEART FAILURE Comment: ef-55% - Plan 87 yo man with dementia and dCHF presents with fever and agitation, admitted for sepsis 2/2 CAP. 1) Sepsis 2/2 CAP - -CXR shows evidence of a right basilar opacity. Pt was started on Vanc and Zosyn. Blood and urine cultures were drawn. We will repeat a cbc and bmp in the am. Pt was started will continue Vanc, Zosyn until blood cx negative. S/p fluids. Will continue maintenance fluids of NS. A vanc trough was ordered as well. We will provide duonebs q4h prn as well. 2) CAP - Vanc, Zosyn, Duonebs. Will need vanc trough. Oxygen PRN. 3) Lactic Acidosis - we will recheck a lactic acid after he receives fluids. 4) Advanced dementia - Currently a&o X1, which is his baseline. Concern for aspiration and decreased PO intake. We will get a speech evaluation, start ensure enlive BID, and place him fall precautions. Pt seems deconditioned and cachectic. We will encourage PO intake and supplement with shakes as stated above. 5) dCHF - No s/s of volume overload. Last ECHO was 55-60% in 08/2017. We will continue ASA and Lasix per cardiology. 6) A-fib w/ RVR- Pt was found to have afib with rvr on admission. He fell back into NSR in the ER without treatment. Will check CE x3, TSH, and repeat EKG in am. 7) Hematuria - will recheck UA in 2 days. Likely 2/2 guzman trauma. Dispo: likely discharge back to [facility] in 2 days. Prophylaxis: Lovenox FMR H&P: Upper Level - Plan Date/Time: 12/11/17 1716 IShanell, PGY3, have evaluated this patient and agree with findings/plan as outlined by architecture internship resident. Pertinent changes/additions are listed here. This is an 87 yo WM w/ PMH advanced dementia, recent shingles s/p treatment, dCHF w/ last ECHO 55-60% in 08/2017, presents from [facility] for increased confusion, tachypnia, and tachycardia, as well as hypoxia PE: AOx1 at baseline. HEENT: TM normal, no cervical adenopathy CV: RRR. No murmurs Resp: course breath sounds bilaterally diffusely Ext: No edema, +2 pulses LE bilaterally Abd: Soft, non-tender A/P: 1) Sepsis 2/2 CAP - will continue Vanc, Zosyn until blood cx negative. S/p fluids. Will continue maintenance fluids 2) CAP - Vanc, Zosyn, Duonebs. Will need vanc trough. Oxygen PRN. 3) Lactic Acidosis - Currently resolved s/p fluids 4) Metabolic acidosis - likely 2/2 #3. 5) Advanced dementia - Currently at baseline. Will get speech evaluation. 6) dCHF - Last ECHO was 55-60% in 08/2017. Is on ASA and Lasix per cardiology. Not a candidate for other medications due to hypotension. 7) A-fib w/ RVR that resolved on it's own. Patient has hx of A-fib. Will check CE x3, TSH, repeat EKG in am 8) Hematuria - will recheck UA in 2 days. Likely 2/2 guzman trauma. Attending Addendum - Attending Addendum Date/Time: 12/11/17 0678 I personally evaluated the patient and discussed the management with Dr. Saavedra I agree with the History, Examination, Assessment and Plan documented above with any addition or exceptions noted below. 87 yo NH patient transferred to ER with severe sepsis secondary RLL pneumonia patient minimally responsive albeit at baseline per MR. Admitted and broad spectrum antibiotic coverage initiated. History of Atrial fibrillation rate controlled at present.
[2017-12-11] MEDS: Piperacillin/Tazobactam 4.5 GM in Sodium Chloride 0.9% 100 ML IVPB SCH (18:27)
[2017-12-11] MEDS: Sodium Chloride 0.9% 1,000 ML IV SCH (18:57)
[2017-12-11 19:07] LABS: CKMB 0.7 ng/mL (0-6.6); Troponin I 0.031 ng/mL (< 0.028)
[2017-12-11] MEDS ORDERED: Aspirin 81 mg Enteric Coated Tablet PO SCH (19:30)
[2017-12-11] MEDS: Famotidine 20 MG TAB PO SCH (20:42)
[2017-12-11] MEDS: Simvastatin 40 MG TAB PO SCH (20:42)
[2017-12-11] MEDS ORDERED: Vancomycin HCl 1.2 GM in Sodium Chloride 0.9% 250 ML 250 ML IVPB SCH (21:00)
[2017-12-11 21:33] LABS: CKMB 0.6 ng/mL (0-6.6); Troponin I 0.055 ng/mL (< 0.028)
[2017-12-11 23:05] LABS: Hemoglobin 9.8 g/dL (14.0-18.0); Platelet Count 252 thou/uL (130-400)
[2017-12-11 23:30] LABS: CKMB 0.7 ng/mL (0-6.6); Troponin I 0.072 ng/mL (< 0.028)
[2017-12-12] MEDS: Piperacillin/Tazobactam 4.5 GM in Sodium Chloride 0.9% 100 ML IVPB SCH ×4 (00:36→17:29)
[2017-12-12] MEDS: Sodium Chloride 0.9% 1,000 ML IV SCH ×4 (00:36→21:54)
[2017-12-12 03:04] LABS: #Lymphocytes 1.2 thou/uL (1.20-3.40); #Monocytes 0.6 thou/uL (0.11-0.59); #Neutrophils 7.4 thou/uL (1.40-6.50); %Basophils 0.1 % (0.0-1.0); %Eosinophils 0.4 % (0.0-10.0); %Lymphocytes 12.5 % (21.0-51.0); Hemoglobin 9.8 g/dL (14.0-18.0); Mean Corpuscular HGB CONC 34.5 g/dL (32.0-36.0); Mean Corpuscular Hemoglobin 32.1 pg (27.0-31.0); Mean Corpuscular Volume 93.1 fl (80.0-94.0); Mean Platelet Volume 5.9 fL (7.4-10.4); Platelet Count 258 thou/uL (130-400); RBC Distribution Width 15.2 % (11.5-14.5); Red Blood Cell (RBC) Count 3.04 mill/uL (4.70-6.10); White Blood Cell (WBC) Count 9.3 thou/uL (4.8-10.8)
[2017-12-12 03:33] LABS: CKMB 0.9 ng/mL (0-6.6); Troponin I 0.069 ng/mL (< 0.028)
[2017-12-12 03:44] LABS: Anion Gap 13 mmol/L (10-20); BUN (Urea Nitrogen) 18 mg/dL (8.4-25.7); Calc. Creatinine Clearance 60 mL/min (70-130); Carbon Dioxide 22 mmol/L (23-31); Chloride 106 mmol/L (98-107); Estimated GFR-MDRD 77; Glucose 125 mg/dL (83-110); Potassium 3.6 mmol/L (3.5-5.1); Sodium 137 mmol/L (136-145)
--- NOTE | 2017-12-12 06:39 | PDOC.FM ---
- Subjective Subjective: Patient is sleeping comfortably this morning. He is AOx1. Nursing staff reports a fall overnight in which he was not injured and did not lose consciousness. He was mildly agitated overnight. Patient does not express pain this am. - Objective MAR Reviewed: Yes Vital Signs & Weight: Vital Signs (12 hours) Temp Pulse Resp BP Pulse Ox 12/12/17 04:00 98.3 F 84 20 94/53 L 97 12/12/17 01:44 97 18 95 12/12/17 00:00 100.3 F H 99 19 97/58 L 99 12/11/17 21:55 91 16 97 12/11/17 21:15 99.0 F 94 16 116/62 99 12/11/17 20:00 100.3 F H 99 19 99 12/11/17 18:44 87 16 100 Weight Weight 72.892 kg I&O: 12/10/17 12/11/17 12/12/17 06:59 06:59 06:59 Intake Total 1700 Balance 1700 Result Diagrams: 12/12/17 02:47 12/12/17 02:47 <Stephanie Pineda - Last Filed: 12/12/17 11:08> - Objective Vital Signs & Weight: Vital Signs (12 hours) Temp Pulse Resp BP Pulse Ox 12/12/17 12:00 96.8 F L 78 17 109/61 97 12/12/17 08:30 87 16 12/12/17 08:00 98.9 F 74 18 102/58 L 98 12/12/17 04:00 98.3 F 84 20 94/53 L 97 Weight Weight 72.892 kg I&O: 12/11/17 12/12/17 12/13/17 06:59 06:59 06:59 Intake Total 1700 Balance 1700 Result Diagrams: 12/12/17 02:47 12/12/17 02:47 <Cristofer Sidhu - Last Filed: 12/12/17 14:30> Phys Exam - Physical Examination Constitutional: NAD sleeping, confused but at baseline Respiratory: no wheezing decreased RLL sounds Cardiovascular: RRR, no significant murmur Gastrointestinal: soft Musculoskeletal: pulses present <Stephanie Pineda - Last Filed: 12/12/17 11:08> Dx/Plan (1) Sepsis Code(s): A41.9 - SEPSIS, UNSPECIFIED ORGANISM Status: Acute (2) Pneumonia Code(s): J18.9 - PNEUMONIA, UNSPECIFIED ORGANISM Status: Acute (3) Diastolic CHF Code(s): I50.30 - UNSPECIFIED DIASTOLIC (CONGESTIVE) HEART FAILURE Status: Acute (4) Hematuria Code(s): R31.9 - HEMATURIA, UNSPECIFIED Status: Acute (5) Atrial fibrillation with RVR Code(s): I48.91 - UNSPECIFIED ATRIAL FIBRILLATION Status: Acute (6) Dementia Code(s): F03.90 - UNSPECIFIED DEMENTIA WITHOUT BEHAVIORAL DISTURBANCE Status: Acute (7) Physical deconditioning Code(s): R53.81 - OTHER MALAISE Status: Acute - Plan Plan: Sepsis 2/2 CAP - -CXR shows evidence of a right basilar opacity. -Will d/c Vanc and continue Zosyn for anaerobe coverage. Concern for possible aspiration PNA. -Blood and urine cultures pending. -S/p fluids. LA improved from 4.4 to 1.7 Will continue maintenance fluids of NS. -Vanc trough -duonebs q4h prn Lactic Acidosis, resolved - -resolved with fluids Advanced dementia - -Currently a&o X1, which is his baseline -Concern for aspiration and decreased PO intake. Failed bedside swallow. NPO, Pending speech eval today. -ensure enlive BID when safe to swallow -fall precautions in place dCHF - No s/s of volume overload. Last ECHO was 55-60% in 08/2017. -continue ASA and Lasix per cardiology -watch for s/sx of fluid overload A-fib w/ RVR, resolved Pt was found to have afib with rvr on admission. He fell back into NSR in the ER without treatment. -CE indeterminate but downtrending, likely 2/2 Afib w/ RVR -TSH wnl Hematuria - will recheck UA in 2 days. Likely 2/2 guzman trauma. Dispo: likely discharge back to [facility] in 2 days. Prophylaxis: Lovenox <Stephanie Pineda - Last Filed: 12/12/17 11:08> (1) Sepsis Code(s): A41.9 - SEPSIS, UNSPECIFIED ORGANISM Status: Acute (2) Pneumonia Code(s): J18.9 - PNEUMONIA, UNSPECIFIED ORGANISM Status: Acute (3) Dementia Code(s): F03.90 - UNSPECIFIED DEMENTIA WITHOUT BEHAVIORAL DISTURBANCE Status: Acute (4) Atrial fibrillation with RVR Code(s): I48.91 - UNSPECIFIED ATRIAL FIBRILLATION Status: Acute (5) HTN (hypertension) Code(s): I10 - ESSENTIAL (PRIMARY) HYPERTENSION Status: Acute (6) History of shingles Code(s): Z86.19 - PERSONAL HISTORY OF OTHER INFECTIOUS AND PARASITIC DISEASES Status: Acute (7) Acute diastolic CHF (congestive heart failure) Code(s): I50.31 - ACUTE DIASTOLIC (CONGESTIVE) HEART FAILURE Status: Acute <Cristofer Sidhu - Last Filed: 12/12/17 14:30> Attending Addendum - Attending Addendum Date/Time: 12/12/17 4553 I personally evaluated the patient and discussed the management with Dr. Pineda I agree with the History, Examination, Assessment and Plan documented above with any addition or exceptions noted below. Concern with aspiration pneumonia and zosyn appropriate coverage .Speech therapy for further evaluation .Wound care management consulted regard sacral wound. Patient in sinus rhythm with controlled HR history of atrial fibrillation continue to monitor H/H , Patient at baseline regard Dementia. <Cristofer Sidhu - Last Filed: 12/12/17 14:30>
[2017-12-12] MEDS ORDERED: Enoxaparin Sodium 40 MG/0.4 ML SYRINGE SC SCH (09:00)
[2017-12-12] MEDS: Enoxaparin Sodium 40 MG/0.4 ML SYRINGE SC SCH (09:20)
[2017-12-12] MEDS: Furosemide 20 MG TAB PO SCH ×2 (09:21→13:17)
[2017-12-12] MEDS: Aspirin 81 mg Enteric Coated Tablet PO SCH ×2 (09:21→13:17)
[2017-12-12] MEDS: Potassium Chloride 10 MEQ TAB PO SCH ×2 (09:21→13:17)
[2017-12-12] MEDS: Famotidine 20 MG TAB PO SCH ×3 (09:21→22:15)
[2017-12-12] MEDS ORDERED: Nystatin Powder 15 GM BOT TOP PRN (11:13)
[2017-12-12] MEDS ORDERED: Benzonatate 100 MG CAP PO PRN (11:13)
[2017-12-12] MEDS ORDERED: Vancomycin HCl 1 GM in Premix Bag 1 BAG IVPB SCH (16:00)
[2017-12-12] MEDS: Simvastatin 40 MG TAB PO SCH (22:15)
[2017-12-12 22:58] LABS: Iron Binding Capacity, Total 141 mcg/dL (261-462)
[2017-12-12 22:59] LABS: Iron 26 ug/dL (65-175)
[2017-12-13] MEDS: Piperacillin/Tazobactam 4.5 GM in Sodium Chloride 0.9% 100 ML IVPB SCH ×4 (00:01→17:27)
[2017-12-13] MEDS: Sodium Chloride 0.9% 1,000 ML IV SCH ×4 (02:02→22:31)
[2017-12-13 05:03] LABS: #Eosinphils 0.1 thou/uL (0.0-0.7); #Lymphocytes 0.7 thou/uL (1.20-3.40); #Monocytes 0.5 thou/uL (0.11-0.59); #Neutrophils 4.5 thou/uL (1.40-6.50); %Basophils 0.2 % (0.0-1.0); %Lymphocytes 12.1 % (21.0-51.0); %Monocytes 8.7 % (0.0-10.0); Hemoglobin 9.1 g/dL (14.0-18.0); Mean Corpuscular HGB CONC 33.5 g/dL (32.0-36.0); Mean Corpuscular Hemoglobin 31.9 pg (27.0-31.0); Mean Corpuscular Volume 95.4 fl (80.0-94.0); Mean Platelet Volume 6.3 fL (7.4-10.4); Platelet Count 238 thou/uL (130-400); RBC Distribution Width 15.2 % (11.5-14.5); Red Blood Cell (RBC) Count 2.85 mill/uL (4.70-6.10); White Blood Cell (WBC) Count 5.8 thou/uL (4.8-10.8)
[2017-12-13 05:46] LABS: Anion Gap 12 mmol/L (10-20); BUN (Urea Nitrogen) 13 mg/dL (8.4-25.7); Calc. Creatinine Clearance 64 mL/min (70-130); Carbon Dioxide 19 mmol/L (23-31); Chloride 111 mmol/L (98-107); Estimated GFR-MDRD 85; Glucose 99 mg/dL (83-110); Potassium 3.7 mmol/L (3.5-5.1); Sodium 138 mmol/L (136-145)
--- NOTE | 2017-12-13 07:57 | PDOC.FM ---
- Subjective Subjective: The patient is drowsy this AM. Per the sitter he did not sleep well overnight because he was up coughing all night and was wanting something to drink all night. He was very frustrated they wouldn't let him drink. He has a cough productive of green sputum. He denies any other complaints. He is A&Ox1, which is his baseline. - Objective MAR Reviewed: Yes Vital Signs & Weight: Vital Signs (12 hours) Temp Pulse Resp BP Pulse Ox 12/13/17 07:17 95 20 95 12/13/17 04:00 98.8 F 104 H 24 H 168/94 H 100 12/13/17 03:50 94 L 12/13/17 00:00 97.7 F 101 H 24 H 143/85 H 97 12/12/17 23:50 94 L Weight Weight 72.892 kg I&O: 12/12/17 12/13/17 12/14/17 06:59 06:59 06:59 Intake Total 1700 1400 Balance 1700 1400 Result Diagrams: 12/13/17 03:54 12/13/17 03:54 <Jazmyn Marie - Last Filed: 12/13/17 07:55> - Objective Vital Signs & Weight: Vital Signs (12 hours) Temp Pulse Resp BP Pulse Ox 12/13/17 14:10 95 20 94 L 12/13/17 12:00 98.1 F 95 18 148/84 H 98 12/13/17 10:32 93 20 12/13/17 08:00 97.1 F L 100 18 144/88 H 98 12/13/17 07:43 97.2 F L 111 H 20 12/13/17 07:17 95 20 95 12/13/17 04:00 98.8 F 104 H 24 H 168/94 H 100 12/13/17 03:50 94 L Weight Weight 72.892 kg I&O: 12/12/17 12/13/17 12/14/17 06:59 06:59 06:59 Intake Total 1700 1400 Balance 1700 1400 Result Diagrams: 12/13/17 03:54 12/13/17 03:54 <Velia Adler - Last Filed: 12/13/17 15:13> Phys Exam - Physical Examination Constitutional: NAD HEENT: moist MMs Respiratory: no wheezing rhonchi at R lung base, normal respiratory effort irregularly irregular, no murmur or gallop Gastrointestinal: soft, non-tender, no distention, positive bowel sounds Musculoskeletal: no edema, pulses present Neurological: non-focal, moves all 4 limbs Deviation from normal: A&Ox1, poor insight Skin: normal turgor <Isai Mariea - Last Filed: 12/13/17 07:55> Dx/Plan (1) Sepsis Code(s): A41.9 - SEPSIS, UNSPECIFIED ORGANISM Status: Acute QualifierTitle: Sepsis type: sepsis due to unspecified organism Qualified Code(s): A41.9 - Sepsis, unspecified organism (2) Pneumonia Code(s): J18.9 - PNEUMONIA, UNSPECIFIED ORGANISM Status: Acute QualifierTitle: Pneumonia type: due to unspecified organism Laterality: right Lung location: lower lobe of lung Qualified Code(s): J18.1 - Lobar pneumonia, unspecified organism (3) Atrial fibrillation with RVR Code(s): I48.91 - UNSPECIFIED ATRIAL FIBRILLATION Status: Resolved (4) Dementia Code(s): F03.90 - UNSPECIFIED DEMENTIA WITHOUT BEHAVIORAL DISTURBANCE Status: Acute QualifierTitle: Dementia type: unspecified type Dementia behavioral disturbance: without behavioral disturbance Qualified Code(s): F03.90 - Unspecified dementia without behavioral disturbance (5) Diastolic CHF Code(s): I50.30 - UNSPECIFIED DIASTOLIC (CONGESTIVE) HEART FAILURE Status: Acute QualifierTitle: Heart failure chronicity: chronic Qualified Code(s): I50.32 - Chronic diastolic (congestive) heart failure (6) HTN (hypertension) Code(s): I10 - ESSENTIAL (PRIMARY) HYPERTENSION Status: Acute QualifierTitle: Hypertension type: essential hypertension Qualified Code( s): I10 - Essential (primary) hypertension (7) Normocytic anemia Code(s): D64.9 - ANEMIA, UNSPECIFIED Status: Acute - Plan Plan: Sepsis 2/2 CAP CXR shows evidence of a right basilar opacity. Concern for possible aspiration PNA. Prelim BCx and UCx NGTD. Lactic Acid was initially 4.4, but improved to 1.7 s/p fluid bolus. -Zosyn day 3 -Final Blood and urine cultures -NS @ 120 -duonebs q4h prn -Repeat CXR after treatment for CAP Lactic Acidosis, resolved -resolved with fluids Advanced dementia -Currently a&o X1, which is his baseline -Concern for aspiration and decreased PO intake. Failed bedside swallow. -NPO, pending speech eval - they failed him yesterday, but will re-eval today -ensure enlive BID when safe to swallow -fall precautions in place dCHF No s/s of volume overload. Last ECHO was 55-60% in 08/2017. -continue ASA and Lasix per cardiology once cleared by speech to take PO -watch for s/sx of fluid overload A-fib w/ RVR, resolved Pt was found to have afib with rvr on admission. He fell back into NSR in the ER without treatment. He was in a-fib this AM, but was rate controlled -CE indeterminate but downtrending, likely 2/2 Afib w/ RVR -TSH wnl Normocytic Anemia Has decreased from baseline, is 9.1 today. Iron studies are consistent with Anemia of Chronic Disease. B12 WNL. -Will continue to monitor. -RBC folate Dispo: likely discharge back to [facility] in 1-2 days. <Jazmyn Marie - Last Filed: 12/13/17 07:55> Attending Addendum - Attending Addendum Date/Time: 12/13/17 1512 I personally evaluated the patient and discussed the management with Dr. Marie. I agree with the History, Examination, Assessment and Plan documented above with any addition or exceptions noted below. Patient will continue antibiotics for pneumonia. Sitter notes he has been coughing a lot. Pt appears to be at baseline mentation. Not cleared to swallow by speech therapy. They will re-evaluate today. Dr. Marie will try to talk with [facility] today. <Velia Adler - Last Filed: 12/13/17 15:13>
[2017-12-13] MEDS: Enoxaparin Sodium 40 MG/0.4 ML SYRINGE SC SCH (09:09)
[2017-12-13] MEDS ORDERED: Furosemide 20 MG/2 ML VIAL SLOW IVP SCH (12:30)
[2017-12-13] MEDS: Aspirin 81 mg Enteric Coated Tablet PO SCH (12:56)
[2017-12-13] MEDS: Potassium Chloride 10 MEQ TAB PO SCH (12:56)
[2017-12-13] MEDS: Famotidine 20 MG TAB PO SCH ×2 (12:56→22:31)
[2017-12-13] MEDS: Furosemide 20 MG/2 ML VIAL SLOW IVP SCH (12:57)
[2017-12-13] MEDS: Furosemide 20 MG TAB PO SCH (13:00)
[2017-12-13 15:29] VITALS: BMI 24.4
[2017-12-13] MEDS: Acetaminophen 325 MG TAB PO PRN (22:31)
[2017-12-13] MEDS: Simvastatin 40 MG TAB PO SCH (22:31)
[2017-12-14] MEDS: Piperacillin/Tazobactam 4.5 GM in Sodium Chloride 0.9% 100 ML IVPB SCH ×4 (01:00→18:22)
[2017-12-14 05:06] LABS: #Eosinphils 0.2 thou/uL (0.0-0.7); #Lymphocytes 0.8 thou/uL (1.20-3.40); #Monocytes 0.4 thou/uL (0.11-0.59); #Neutrophils 3.4 thou/uL (1.40-6.50); %Basophils 0.1 % (0.0-1.0); %Eosinophils 3.7 % (0.0-10.0); %Lymphocytes 16.3 % (21.0-51.0); %Monocytes 8.7 % (0.0-10.0); %Neutrophils 71.1 % (42.0-75.0); Hemoglobin 9.6 g/dL (14.0-18.0); Mean Corpuscular HGB CONC 34.3 g/dL (32.0-36.0); Mean Corpuscular Hemoglobin 32.4 pg (27.0-31.0); Mean Corpuscular Volume 94.3 fl (80.0-94.0); Mean Platelet Volume 6.5 fL (7.4-10.4); Platelet Count 269 thou/uL (130-400); RBC Distribution Width 14.9 % (11.5-14.5); Red Blood Cell (RBC) Count 2.95 mill/uL (4.70-6.10); White Blood Cell (WBC) Count 4.8 thou/uL (4.8-10.8)
[2017-12-14 05:48] LABS: Anion Gap 12 mmol/L (10-20); BUN (Urea Nitrogen) 9 mg/dL (8.4-25.7); Calc. Creatinine Clearance 68 mL/min (70-130); Calcium 7.9 mg/dL (7.8-10.44); Carbon Dioxide 21 mmol/L (23-31); Chloride 108 mmol/L (98-107); Estimated GFR-MDRD Greater than 90; Glucose 96 mg/dL (83-110); Potassium 3.1 mmol/L (3.5-5.1); Sodium 138 mmol/L (136-145)
[2017-12-14] MEDS: Sodium Chloride 0.9% 1,000 ML IV SCH ×3 (05:57→23:26)
[2017-12-14] MEDS ORDERED: Potassium Chloride 40 MEQ in Premix Bag 1 BAG IVPB SCH (07:00)
[2017-12-14] MEDS ORDERED: Guaifenesin DM 100-10/5 ML UDCUP PO PRN (09:06)
--- NOTE | 2017-12-14 09:06 | PDOC.FM ---
- Subjective Subjective: Patient more awake this AM, but is difficult to understand. He reports a cough and some SOB overnight. He had a fever overnight as well. He does not want to eat any breakfast due to his cough. - Objective MAR Reviewed: Yes Vital Signs & Weight: Vital Signs (12 hours) Temp Pulse Resp BP Pulse Ox 12/14/17 07:51 98.7 F 100 18 153/92 H 93 L 12/14/17 07:21 98.9 F 93 18 12/14/17 07:01 93 12 91 L 12/14/17 03:19 98.3 F 86 18 148/80 H 93 L 12/14/17 02:11 80 18 96 12/14/17 00:00 99 F 101 H 20 137/80 95 12/13/17 21:47 91 18 95 Weight Admit Weight 73.936 kg Weight 72.892 kg I&O: 12/13/17 12/14/17 12/15/17 06:59 06:59 06:59 Intake Total 1400 1540 Balance 1400 1540 Result Diagrams: 12/14/17 04:13 12/14/17 04:13 <Jazmyn Marie - Last Filed: 12/14/17 09:02> - Objective Vital Signs & Weight: Vital Signs (12 hours) Temp Pulse Resp BP Pulse Ox 12/14/17 18:31 85 20 91 L 12/14/17 16:00 97.9 F 94 17 139/79 96 12/14/17 15:22 96 16 12/14/17 12:00 97.4 F L 100 19 162/93 H 97 12/14/17 10:38 92 12 12/14/17 07:51 98.7 F 100 18 153/92 H 93 L 12/14/17 07:21 98.9 F 93 18 12/14/17 07:01 93 12 91 L Weight Admit Weight 73.936 kg Weight 72.892 kg I&O: 12/13/17 12/14/17 12/15/17 06:59 06:59 06:59 Intake Total 1400 1540 1510 Balance 1400 1540 1510 Result Diagrams: 12/14/17 04:13 12/14/17 04:13 <Velia Adler - Last Filed: 12/14/17 18:49> Phys Exam - Physical Examination Constitutional: NAD HEENT: moist MMs Respiratory: no wheezing rhonchi in R lung base Cardiovascular: RRR, no significant murmur, no rub Gastrointestinal: soft, non-tender, no distention, positive bowel sounds Musculoskeletal: no edema, pulses present Neurological: non-focal, moves all 4 limbs Psychiatric: normal affect Deviation from normal: A&Ox1 Skin: normal turgor, cap refill <2 seconds <Jazmyn Marie - Last Filed: 12/14/17 09:02> Dx/Plan (1) Sepsis Code(s): A41.9 - SEPSIS, UNSPECIFIED ORGANISM Status: Acute QualifierTitle: Sepsis type: sepsis due to unspecified organism Qualified Code(s): A41.9 - Sepsis, unspecified organism (2) Pneumonia Code(s): J18.9 - PNEUMONIA, UNSPECIFIED ORGANISM Status: Acute QualifierTitle: Pneumonia type: due to unspecified organism Laterality: right Lung location: lower lobe of lung Qualified Code(s): J18.1 - Lobar pneumonia, unspecified organism (3) Atrial fibrillation with RVR Code(s): I48.91 - UNSPECIFIED ATRIAL FIBRILLATION Status: Resolved (4) Dementia Code(s): F03.90 - UNSPECIFIED DEMENTIA WITHOUT BEHAVIORAL DISTURBANCE Status: Acute QualifierTitle: Dementia type: unspecified type Dementia behavioral disturbance: without behavioral disturbance Qualified Code(s): F03.90 - Unspecified dementia without behavioral disturbance (5) Diastolic CHF Code(s): I50.30 - UNSPECIFIED DIASTOLIC (CONGESTIVE) HEART FAILURE Status: Acute QualifierTitle: Heart failure chronicity: chronic Qualified Code(s): I50.32 - Chronic diastolic (congestive) heart failure (6) HTN (hypertension) Code(s): I10 - ESSENTIAL (PRIMARY) HYPERTENSION Status: Acute QualifierTitle: Hypertension type: essential hypertension Qualified Code( s): I10 - Essential (primary) hypertension (7) Normocytic anemia Code(s): D64.9 - ANEMIA, UNSPECIFIED Status: Acute - Plan Plan: Sepsis 2/2 CAP CXR shows evidence of a right basilar opacity. Concern for possible aspiration PNA. Prelim BCx and UCx NGTD. Lactic Acid was initially 4.4, but improved to 1.7 s/p fluid bolus. Pt fevered again overnight. -Zosyn day 4 -Final Blood and urine cultures -NS @ 120 -duonebs q4h prn -Repeat CXR after treatment for CAP Lactic Acidosis, resolved -resolved with fluids Advanced dementia -Currently a&o X1, which is his baseline -Concern for aspiration and decreased PO intake. -Pt was given pureed diet with no straws by speech -ensure enlive BID -fall precautions in place dCHF No s/s of volume overload. Last ECHO was 55-60% in 08/2017. -continue ASA and Lasix -watch for s/sx of fluid overload A-fib w/ RVR, resolved Pt was found to have afib with rvr on admission. He fell back into NSR in the ER without treatment. -CE indeterminate but downtrended, likely 2/2 Afib w/ RVR -TSH wnl Normocytic Anemia Has decreased from baseline, is 9.6 today. Iron studies are consistent with Anemia of Chronic Disease. B12 WNL. RBC folate WNL. -Will continue to monitor. <Jazmyn Marie - Last Filed: 12/14/17 09:02> Attending Addendum - Attending Addendum Date/Time: 12/14/17 9789 I personally evaluated the patient and discussed the management with Dr. Marie. I agree with the History, Examination, Assessment and Plan documented above with any addition or exceptions noted below. Patient with continued frequent cough and spike fever overnight. Will order CXR. Will add IV vancomycin. Robitussin for cough. Replace potassium. <Velia Adler - Last Filed: 12/14/17 18:49>
[2017-12-14] MEDS: Enoxaparin Sodium 40 MG/0.4 ML SYRINGE SC SCH (09:28)
[2017-12-14] MEDS: Potassium Chloride 10 MEQ TAB PO SCH (09:28)
[2017-12-14] MEDS: Aspirin 81 mg Enteric Coated Tablet PO SCH (09:28)
[2017-12-14] MEDS: Famotidine 20 MG TAB PO SCH ×2 (09:28→20:41)
[2017-12-14] MEDS: Potassium Chloride 20 MEQ in Premix Bag 1 BAG IVPB SCH ×2 (09:29→11:28)
[2017-12-14] MEDS: Furosemide 20 MG/2 ML VIAL SLOW IVP SCH (09:29)
--- NOTE | 2017-12-14 10:35 | RAD ---
PORTABLE AP CHEST RADIOGRAPH: Date: 12-14-17 History: Continued pneumonia. Comparison: 12-11-17 FINDINGS: There is persistent increased airspace opacity at the right lung base which may be related to pneumon ia. There is also suggestion of increased patchy airspace opacity at the left lung base, but the left lung base is not well evaluated due to the overlying cardiac silhouette which does again appear enla rged. Pulmonary vasculature is within normal limits. Vascular calcification is seen in the thoracic a anabelle. There has been no significant interval change from prior exam. IMPRESSION: Persistent airspace opacity at the right lung base with suggestion of developing airspace density in the retrocardiac region left lung base and left midlung zone. Findings may be related to bilateral pn eumonia. Atypical pneumonia cannot be excluded. Follow up to complete resolution is recommended. POS: THEODORA
[2017-12-14] MEDS: Vancomycin HCl 1 GM in Premix Bag 1 BAG IVPB SCH ×2 (12:23→23:24)
--- NOTE | 2017-12-14 15:58 | RAD ---
MODIFIED BARIUM SWALLOW IN THE PRESENCE OF SPEECH THERAPIST 12/14/17 HISTORY: Dysphagia oropharyngeal phase, feeding difficulties. FINDINGS/IMPRESSION: No aspiration or laryngeal penetration is seen. There is residua noted in the piriform sinuses, ryder cula and oral cavity. Please see recommendation of the speech therapist for further management. POS: THEODORA
[2017-12-14 16:16] LABS: Folate,Hemolysate 378.5 ng/mL (Not Estab.); Hematocrit 28.4 % (37.5-51.0); RBC Folate Test Component 1333 ng/mL (>498)
[2017-12-14] MEDS: Simvastatin 40 MG TAB PO SCH (20:41)
[2017-12-15] MEDS: Piperacillin/Tazobactam 4.5 GM in Sodium Chloride 0.9% 100 ML IVPB SCH ×4 (00:40→17:26)
[2017-12-15 06:27] LABS: #Eosinphils 0.3 thou/uL (0.0-0.7); #Lymphocytes 0.8 thou/uL (1.20-3.40); #Monocytes 0.4 thou/uL (0.11-0.59); #Neutrophils 2.3 thou/uL (1.40-6.50); %Basophils 0.4 % (0.0-1.0); %Eosinophils 8.6 % (0.0-10.0); %Lymphocytes 19.7 % (21.0-51.0); %Monocytes 11.1 % (0.0-10.0); %Neutrophils 60.2 % (42.0-75.0); Hemoglobin 10.4 g/dL (14.0-18.0); Mean Corpuscular HGB CONC 33.2 g/dL (32.0-36.0); Mean Corpuscular Hemoglobin 31.6 pg (27.0-31.0); Mean Corpuscular Volume 95.1 fl (80.0-94.0); Platelet Count 289 thou/uL (130-400); RBC Distribution Width 14.9 % (11.5-14.5); Red Blood Cell (RBC) Count 3.29 mill/uL (4.70-6.10); White Blood Cell (WBC) Count 3.8 thou/uL (4.8-10.8)
[2017-12-15 07:01] LABS: Anion Gap 16 mmol/L (10-20); BUN (Urea Nitrogen) 6 mg/dL (8.4-25.7); Calc. Creatinine Clearance 65 mL/min (70-130); Calcium 8.5 mg/dL (7.8-10.44); Carbon Dioxide 19 mmol/L (23-31); Chloride 107 mmol/L (98-107); Estimated GFR-MDRD 87; Glucose 91 mg/dL (83-110); Potassium 3.6 mmol/L (3.5-5.1); Sodium 138 mmol/L (136-145)
--- NOTE | 2017-12-15 08:24 | PDOC.FM ---
- Subjective Subjective: Patient sleepy this AM. Per the sitter he slept well overnight. He did not have any complaints. He is A&Ox1. - Objective MAR Reviewed: Yes Vital Signs & Weight: Vital Signs (12 hours) Temp Pulse Resp BP Pulse Ox 12/15/17 07:37 84 16 96 12/15/17 04:00 98.2 F 83 20 148/88 H 96 12/15/17 01:39 84 18 95 12/15/17 00:00 98.5 F 94 18 143/65 H 96 12/14/17 22:51 86 18 97 Weight Admit Weight 73.936 kg Weight 72.892 kg I&O: 12/14/17 12/15/17 12/16/17 06:59 06:59 06:59 Intake Total 1540 3110 Balance 1540 3110 Result Diagrams: 12/15/17 05:38 12/15/17 05:38 Radiology Reviewed by me: Yes Radiology: CXR yesterday showed persistent airspace opacity at R lung base, with developing airspace density in retrocardiac region of L lung base and L mid lung <Jazmyn Marie - Last Filed: 12/15/17 08:22> - Objective Vital Signs & Weight: Vital Signs (12 hours) Temp Pulse Resp BP Pulse Ox 12/15/17 11:19 82 19 95 12/15/17 10:45 98.2 F 93 18 112/73 95 12/15/17 09:04 98.2 F 82 19 146/87 H 95 12/15/17 07:37 84 16 96 12/15/17 04:00 98.2 F 83 20 148/88 H 96 12/15/17 01:39 84 18 95 Weight Admit Weight 73.936 kg Weight 72.892 kg I&O: 12/14/17 12/15/17 12/16/17 06:59 06:59 06:59 Intake Total 1540 3110 Balance 1540 3110 Result Diagrams: 12/15/17 05:38 12/15/17 05:38 <Velia Adler - Last Filed: 12/15/17 12:56> Phys Exam - Physical Examination Constitutional: NAD HEENT: moist MMs Respiratory: no wheezing Rhonchi in bilateral lower lung ramos Cardiovascular: RRR, no significant murmur, no rub Gastrointestinal: soft, non-tender, no distention, positive bowel sounds Musculoskeletal: no edema, pulses present Neurological: non-focal, moves all 4 limbs Deviation from normal: A&Ox1 Skin: normal turgor, cap refill <2 seconds <Jazmyn Marie - Last Filed: 12/15/17 08:22> Dx/Plan (1) Sepsis Code(s): A41.9 - SEPSIS, UNSPECIFIED ORGANISM Status: Acute QualifierTitle: Sepsis type: sepsis due to unspecified organism Qualified Code(s): A41.9 - Sepsis, unspecified organism (2) Pneumonia Code(s): J18.9 - PNEUMONIA, UNSPECIFIED ORGANISM Status: Acute QualifierTitle: Pneumonia type: due to unspecified organism Laterality: bilateral Lung location: lower lobe of lung Qualified Code(s): J18.1 - Lobar pneumonia, unspecified organism (3) Atrial fibrillation with RVR Code(s): I48.91 - UNSPECIFIED ATRIAL FIBRILLATION Status: Resolved (4) Dementia Code(s): F03.90 - UNSPECIFIED DEMENTIA WITHOUT BEHAVIORAL DISTURBANCE Status: Acute QualifierTitle: Dementia type: unspecified type Dementia behavioral disturbance: without behavioral disturbance Qualified Code(s): F03.90 - Unspecified dementia without behavioral disturbance (5) Diastolic CHF Code(s): I50.30 - UNSPECIFIED DIASTOLIC (CONGESTIVE) HEART FAILURE Status: Acute QualifierTitle: Heart failure chronicity: chronic Qualified Code(s): I50.32 - Chronic diastolic (congestive) heart failure (6) HTN (hypertension) Code(s): I10 - ESSENTIAL (PRIMARY) HYPERTENSION Status: Acute QualifierTitle: Hypertension type: essential hypertension Qualified Code( s): I10 - Essential (primary) hypertension (7) Normocytic anemia Code(s): D64.9 - ANEMIA, UNSPECIFIED Status: Acute - Plan Plan: Sepsis 2/2 CAP CXR shows evidence of a right basilar opacity. Concern for possible aspiration PNA. Prelim BCx and UCx NGTD. Lactic Acid was initially 4.4, but improved to 1.7 s/p fluid bolus. Pt has been afebrile in past 24 hours. CXR yesterday showed persistent airspace opacity at R lung base with developing density in retrocardiac region of left lung base and left midlung. -Zosyn day 5, Vanc day 2 -Final Blood and urine cultures -NS @ 120 -duonebs q4h prn -Repeat CXR after treatment for CAP Lactic Acidosis, resolved -resolved with fluids Advanced dementia -Currently a&o X1, which is his baseline -Concern for aspiration and decreased PO intake. -Pt was given pureed diet with no straws by speech -ensure enlive BID -fall precautions in place -Dietitian consult -Palliative care consult dCHF No s/s of volume overload. Last ECHO was 55-60% in 08/2017. -continue ASA and Lasix -watch for s/sx of fluid overload A-fib w/ RVR, resolved Pt was found to have afib with RVR on admission. He fell back into NSR in the ER without treatment. -CE indeterminate but downtrended, likely 2/2 Afib w/ RVR -TSH wnl Normocytic Anemia Has decreased from baseline, is 10.4 today. Iron studies are consistent with Anemia of Chronic Disease. B12 WNL. RBC folate WNL. -Will continue to monitor. <Jazmyn Marie - Last Filed: 12/15/17 08:22> Attending Addendum - Attending Addendum Date/Time: 12/15/17 0769 I personally evaluated the patient and discussed the management with Dr. Marie. I agree with the History, Examination, Assessment and Plan documented above with any addition or exceptions noted below. The patient's cough medication will be scheduled. Adding azithromycin to cover atypical bacteria. No new fever. Continue IV vanc and zosyn. <Velia Adler - Last Filed: 12/15/17 12:56>
[2017-12-15] MEDS: Sodium Chloride 0.9% 1,000 ML IV SCH ×3 (09:12→17:27)
[2017-12-15] MEDS: Furosemide 20 MG TAB PO SCH (09:13)
[2017-12-15] MEDS: Enoxaparin Sodium 40 MG/0.4 ML SYRINGE SC SCH (09:13)
[2017-12-15] MEDS: Famotidine 20 MG TAB PO SCH ×2 (09:13→20:06)
[2017-12-15] MEDS: Potassium Chloride 10 MEQ TAB PO SCH (09:27)
[2017-12-15] MEDS: Aspirin 81 mg Enteric Coated Tablet PO SCH (09:28)
[2017-12-15] MEDS: Vancomycin HCl 1 GM in Premix Bag 1 BAG IVPB SCH ×2 (10:49→22:35)
[2017-12-15] MEDS ORDERED: Azithromycin 250 MG TAB PO SCH (11:00)
[2017-12-15] MEDS: Guaifenesin DM 100-10/5 ML UDCUP PO SCH ×3 (12:14→22:37)
[2017-12-15] MEDS: Benzonatate 100 MG CAP PO SCH ×2 (15:21→19:26)
[2017-12-15] MEDS: Simvastatin 40 MG TAB PO SCH (20:06)
[2017-12-15 21:52] LABS: Vancomycin, Trough 13.9 ug/mL
[2017-12-16] MEDS: Piperacillin/Tazobactam 4.5 GM in Sodium Chloride 0.9% 100 ML IVPB SCH ×4 (01:49→17:35)
[2017-12-16 04:37] LABS: #Eosinphils 0.3 thou/uL (0.0-0.7); #Lymphocytes 0.6 thou/uL (1.20-3.40); #Monocytes 0.4 thou/uL (0.11-0.59); #Neutrophils 2.5 thou/uL (1.40-6.50); %Eosinophils 8.1 % (0.0-10.0); %Lymphocytes 16.2 % (21.0-51.0); %Monocytes 10.8 % (0.0-10.0); %Neutrophils 64.9 % (42.0-75.0); Hemoglobin 10.2 g/dL (14.0-18.0); Mean Corpuscular HGB CONC 33.3 g/dL (32.0-36.0); Mean Corpuscular Hemoglobin 31.3 pg (27.0-31.0); Mean Corpuscular Volume 94.1 fl (80.0-94.0); Mean Platelet Volume 5.8 fL (7.4-10.4); Platelet Count 286 thou/uL (130-400); RBC Distribution Width 15.1 % (11.5-14.5); Red Blood Cell (RBC) Count 3.25 mill/uL (4.70-6.10); White Blood Cell (WBC) Count 3.9 thou/uL (4.8-10.8)
[2017-12-16 04:41] LABS: Anion Gap 12 mmol/L (10-20); BUN (Urea Nitrogen) 8 mg/dL (8.4-25.7); Calc. Creatinine Clearance 63 mL/min (70-130); Calcium 8.3 mg/dL (7.8-10.44); Carbon Dioxide 24 mmol/L (23-31); Chloride 107 mmol/L (98-107); Estimated GFR-MDRD 83; Glucose 107 mg/dL (83-110); Potassium 3.2 mmol/L (3.5-5.1); Sodium 140 mmol/L (136-145)
[2017-12-16] MEDS: Guaifenesin DM 100-10/5 ML UDCUP PO SCH ×3 (04:59→17:34)
--- NOTE | 2017-12-16 08:20 | PDOC.FM ---
- Subjective Subjective: Patient's cough appears improved per the sitter. He is still coughing when he tries to swallow liquids though. He slept okay overnight and ate a full dinner and full breakfast. He was AOx1. - Objective MAR Reviewed: Yes Vital Signs & Weight: Vital Signs (12 hours) Temp Pulse Resp BP Pulse Ox 12/16/17 06:07 84 15 95 12/16/17 05:51 98.1 F 85 20 156/98 H 92 L 12/16/17 00:49 98.3 F 98 18 133/83 94 L 12/15/17 22:04 70 12 93 L 12/15/17 20:28 98.0 F 70 18 116/73 93 L Weight Admit Weight 73.936 kg Weight 72.892 kg I&O: 12/15/17 12/16/17 12/17/17 06:59 06:59 06:59 Intake Total 3110 Balance 3110 Result Diagrams: 12/16/17 03:39 12/16/17 03:39 <Jazmyn Marei - Last Filed: 12/16/17 08:18> - Objective Vital Signs & Weight: Vital Signs (12 hours) Temp Pulse Resp BP BP Pulse Ox 12/16/17 10:27 78 14 95 12/16/17 08:00 98.1 F 88 20 122/79 91 L 12/16/17 06:07 84 15 95 12/16/17 05:51 98.1 F 85 20 156/98 H 92 L 12/16/17 00:49 98.3 F 98 18 133/83 94 L Weight Admit Weight 73.936 kg Weight 72.892 kg I&O: 12/15/17 12/16/17 12/17/17 06:59 06:59 06:59 Intake Total 3110 Balance 3110 Result Diagrams: 12/16/17 03:39 12/16/17 03:39 <Velia Adler - Last Filed: 12/16/17 10:47> Phys Exam - Physical Examination Constitutional: NAD drowsy appearing HEENT: moist MMs Respiratory: no wheezing rhonchi in bilateral lung bases Cardiovascular: no significant murmur, no rub irregularly irregular Gastrointestinal: soft, non-tender, no distention, positive bowel sounds Musculoskeletal: no edema, pulses present Deviation from normal: A&Ox1 Skin: normal turgor, cap refill <2 seconds <Jazmyn Marie - Last Filed: 12/16/17 08:18> Dx/Plan (1) Sepsis Code(s): A41.9 - SEPSIS, UNSPECIFIED ORGANISM Status: Acute QualifierTitle: Sepsis type: sepsis due to unspecified organism Qualified Code(s): A41.9 - Sepsis, unspecified organism (2) Pneumonia Code(s): J18.9 - PNEUMONIA, UNSPECIFIED ORGANISM Status: Acute QualifierTitle: Pneumonia type: due to unspecified organism Laterality: bilateral Lung location: lower lobe of lung Qualified Code(s): J18.1 - Lobar pneumonia, unspecified organism (3) Atrial fibrillation with RVR Code(s): I48.91 - UNSPECIFIED ATRIAL FIBRILLATION Status: Resolved (4) Dementia Code(s): F03.90 - UNSPECIFIED DEMENTIA WITHOUT BEHAVIORAL DISTURBANCE Status: Acute QualifierTitle: Dementia type: unspecified type Dementia behavioral disturbance: without behavioral disturbance Qualified Code(s): F03.90 - Unspecified dementia without behavioral disturbance (5) Diastolic CHF Code(s): I50.30 - UNSPECIFIED DIASTOLIC (CONGESTIVE) HEART FAILURE Status: Acute QualifierTitle: Heart failure chronicity: chronic Qualified Code(s): I50.32 - Chronic diastolic (congestive) heart failure (6) HTN (hypertension) Code(s): I10 - ESSENTIAL (PRIMARY) HYPERTENSION Status: Acute QualifierTitle: Hypertension type: essential hypertension Qualified Code( s): I10 - Essential (primary) hypertension (7) Normocytic anemia Code(s): D64.9 - ANEMIA, UNSPECIFIED Status: Acute - Plan Plan: Sepsis 2/2 CAP CXR shows evidence of a right basilar opacity. Concern for possible aspiration PNA. Prelim BCx and UCx NGTD. Lactic Acid was initially 4.4, but improved to 1.7 s/p fluid bolus. Pt has been afebrile in past 24 hours. CXR on 12/14 showed persistent airspace opacity at R lung base with developing density in retrocardiac region of left lung base and left midlung. -Zosyn day 6, Vanc day 3, Azithromycin day 2 -Final Blood and urine cultures -NS @ 120 -duonebs q4h prn -Repeat CXR after treatment for CAP Lactic Acidosis, resolved -resolved with fluids Hypokalemia K 3.2 this AM, Mag WNL. -Will replete -Monitor Advanced dementia -Currently a&o X1, which is his baseline -Concern for aspiration and decreased PO intake. -Pt was given pureed diet with no straws by speech -ensure enlive BID -fall precautions in place -Dietitian consult -Palliative care consult - plan was discussed with niece, who is patient's closest relative other than son who has severe Schizophrenia and would be unable to make decisions. Decision was made to proceed with Hospice at this time. dCHF No s/s of volume overload. Last ECHO was 55-60% in 08/2017. -continue ASA and Lasix -watch for s/sx of fluid overload A-fib w/ RVR, resolved Pt was found to have afib with RVR on admission. He fell back into NSR in the ER without treatment. -CE indeterminate but downtrended, likely 2/2 Afib w/ RVR -TSH wnl Normocytic Anemia Stable. Iron studies are consistent with Anemia of Chronic Disease. B12 WNL. RBC folate WNL. -Will continue to monitor. <Jazmyn Marie - Last Filed: 12/16/17 08:18> Attending Addendum - Attending Addendum Date/Time: 12/16/17 7516 I personally evaluated the patient and discussed the management with Dr. Marie. I agree with the History, Examination, Assessment and Plan documented above with any addition or exceptions noted below. The patient will continue antibiotics. Working on arranging hospice. May be able to discharge tomorrow. <Velia Adler - Last Filed: 12/16/17 10:47>
[2017-12-16] MEDS: Enoxaparin Sodium 40 MG/0.4 ML SYRINGE SC SCH (08:22)
[2017-12-16] MEDS: Benzonatate 100 MG CAP PO SCH ×3 (08:23→20:00)
[2017-12-16] MEDS: Azithromycin 250 MG TAB PO SCH (08:23)
[2017-12-16] MEDS: Potassium Chloride 20 MEQ TAB PO SCH (08:23)
[2017-12-16] MEDS: Furosemide 20 MG TAB PO SCH (08:24)
[2017-12-16] MEDS: Famotidine 20 MG TAB PO SCH ×2 (08:24→20:00)
[2017-12-16] MEDS: Sodium Chloride 0.9% 1,000 ML IV SCH ×3 (08:35→19:55)
[2017-12-16] MEDS: Vancomycin HCl 1 GM in Premix Bag 1 BAG IVPB SCH (11:24)
[2017-12-16] MEDS: Acetaminophen 325 MG TAB PO PRN (19:59)
[2017-12-16] MEDS: Simvastatin 40 MG TAB PO SCH (20:00)
[2017-12-17] MEDS: Guaifenesin DM 100-10/5 ML UDCUP PO SCH ×4 (00:28→10:47)
[2017-12-17] MEDS: Vancomycin HCl 1 GM in Premix Bag 1 BAG IVPB SCH ×2 (00:28→10:32)
[2017-12-17] MEDS: Piperacillin/Tazobactam 4.5 GM in Sodium Chloride 0.9% 100 ML IVPB SCH ×3 (00:41→11:40)
[2017-12-17] MEDS: Sodium Chloride 0.9% 1,000 ML IV SCH (05:23)
[2017-12-17 05:31] LABS: #Eosinphils 0.3 thou/uL (0.0-0.7); #Lymphocytes 0.6 thou/uL (1.20-3.40); #Monocytes 0.4 thou/uL (0.11-0.59); #Neutrophils 2.3 thou/uL (1.40-6.50); %Basophils 0.6 % (0.0-1.0); %Eosinophils 8.7 % (0.0-10.0); %Lymphocytes 15.4 % (21.0-51.0); %Monocytes 11.5 % (0.0-10.0); %Neutrophils 63.8 % (42.0-75.0); Hemoglobin 10.5 g/dL (14.0-18.0); Mean Corpuscular HGB CONC 33.3 g/dL (32.0-36.0); Mean Corpuscular Hemoglobin 31.2 pg (27.0-31.0); Mean Corpuscular Volume 93.8 fl (80.0-94.0); Mean Platelet Volume 5.7 fL (7.4-10.4); Platelet Count 267 thou/uL (130-400); RBC Distribution Width 15.2 % (11.5-14.5); Red Blood Cell (RBC) Count 3.37 mill/uL (4.70-6.10); White Blood Cell (WBC) Count 3.7 thou/uL (4.8-10.8)
[2017-12-17] MEDS: Potassium Chloride 20 MEQ TAB PO SCH (05:40)
[2017-12-17 05:44] LABS: Anion Gap 11 mmol/L (10-20); BUN (Urea Nitrogen) 6 mg/dL (8.4-25.7); Calc. Creatinine Clearance 63 mL/min (70-130); Calcium 8.4 mg/dL (7.8-10.44); Carbon Dioxide 25 mmol/L (23-31); Chloride 105 mmol/L (98-107); Estimated GFR-MDRD 83; Glucose 110 mg/dL (83-110); Potassium 3.2 mmol/L (3.5-5.1); Sodium 138 mmol/L (136-145)
[2017-12-17] MEDS ORDERED: Potassium Chloride 20 MEQ TAB PO SCH (06:45)
[2017-12-17] MEDS: Enoxaparin Sodium 40 MG/0.4 ML SYRINGE SC SCH (07:38)
[2017-12-17] MEDS: Benzonatate 100 MG CAP PO SCH (07:38)
[2017-12-17] MEDS: Famotidine 20 MG TAB PO SCH (07:38)
[2017-12-17] MEDS: Furosemide 20 MG TAB PO SCH (07:39)
[2017-12-17] MEDS: Azithromycin 250 MG TAB PO SCH (07:39)
--- NOTE | 2017-12-17 09:05 | PDOC.FM ---
- Subjective Subjective: Patient doing well this AM. He was sitting up in bed and had finished most of his breakfast. He reports continued cough. Denies SOB or chest pain. He is a little confused and disoriented, but reported that he wants to go back to [facility]. A&Ox1 - Objective MAR Reviewed: Yes Vital Signs & Weight: Vital Signs (12 hours) Temp Pulse Resp BP BP Pulse Ox 12/17/17 08:29 97.9 F 90 18 106/66 98 12/17/17 08:00 97.9 F 90 18 95 12/17/17 06:43 90 16 98 12/17/17 03:20 93 L 12/16/17 23:40 97.8 F 89 16 146/85 H 91 L 12/16/17 22:42 93 L Weight Admit Weight 73.936 kg Weight 72.892 kg I&O: 12/16/17 12/17/17 12/18/17 06:59 06:59 06:59 Intake Total 1750 Balance 1750 Result Diagrams: 12/17/17 05:14 12/17/17 05:14 <Jazmyn Marie - Last Filed: 12/17/17 09:03> - Objective Vital Signs & Weight: Vital Signs (12 hours) Temp Pulse Resp BP Pulse Ox 12/17/17 11:37 98.0 F 87 18 118/62 95 12/17/17 11:12 92 16 98 12/17/17 08:29 97.9 F 90 18 106/66 98 12/17/17 08:00 97.9 F 90 18 95 12/17/17 06:43 90 16 98 Weight Admit Weight 73.936 kg Weight 72.892 kg I&O: 12/16/17 12/17/17 12/18/17 06:59 06:59 06:59 Intake Total 1750 480 Balance 1750 480 Result Diagrams: 12/17/17 05:14 12/17/17 05:14 <Velia Adler - Last Filed: 12/17/17 17:12> Phys Exam - Physical Examination Constitutional: NAD HEENT: moist MMs Respiratory: no wheezing crackles at bilateral lung bases Cardiovascular: RRR, no significant murmur, no rub Gastrointestinal: soft, non-tender, no distention, positive bowel sounds Musculoskeletal: no edema, pulses present Psychiatric: normal affect Deviation from normal: A&Ox1 Skin: normal turgor, cap refill <2 seconds <Jazmyn Marie - Last Filed: 12/17/17 09:03> Dx/Plan (1) Sepsis Code(s): A41.9 - SEPSIS, UNSPECIFIED ORGANISM Status: Acute QualifierTitle: Sepsis type: sepsis due to unspecified organism Qualified Code(s): A41.9 - Sepsis, unspecified organism (2) Pneumonia Code(s): J18.9 - PNEUMONIA, UNSPECIFIED ORGANISM Status: Acute QualifierTitle: Pneumonia type: due to unspecified organism Laterality: bilateral Lung location: lower lobe of lung Qualified Code(s): J18.1 - Lobar pneumonia, unspecified organism (3) Atrial fibrillation with RVR Code(s): I48.91 - UNSPECIFIED ATRIAL FIBRILLATION Status: Resolved (4) Dementia Code(s): F03.90 - UNSPECIFIED DEMENTIA WITHOUT BEHAVIORAL DISTURBANCE Status: Acute QualifierTitle: Dementia type: unspecified type Dementia behavioral disturbance: without behavioral disturbance Qualified Code(s): F03.90 - Unspecified dementia without behavioral disturbance (5) Diastolic CHF Code(s): I50.30 - UNSPECIFIED DIASTOLIC (CONGESTIVE) HEART FAILURE Status: Acute QualifierTitle: Heart failure chronicity: chronic Qualified Code(s): I50.32 - Chronic diastolic (congestive) heart failure (6) HTN (hypertension) Code(s): I10 - ESSENTIAL (PRIMARY) HYPERTENSION Status: Acute QualifierTitle: Hypertension type: essential hypertension Qualified Code( s): I10 - Essential (primary) hypertension (7) Normocytic anemia Code(s): D64.9 - ANEMIA, UNSPECIFIED Status: Acute - Plan Plan: Sepsis 2/2 CAP CXR shows evidence of a right basilar opacity. Concern for possible aspiration PNA. Prelim BCx and UCx NGTD. Lactic Acid was initially 4.4, but improved to 1.7 s/p fluid bolus. Pt has been afebrile in past 24 hours. CXR on 12/14 showed persistent airspace opacity at R lung base with developing density in retrocardiac region of left lung base and left midlung. -Zosyn day 7, Vanc day 4, Azithromycin day 3, will transition to PO abx today -Will d/c fluids today -duonebs q4h prn -Repeat CXR after treatment for CAP Lactic Acidosis, resolved -resolved with fluids Hypokalemia K 3.2 this AM, Mag WNL. -Will replete -Monitor Advanced dementia -Currently a&o X1, which is his baseline -Concern for aspiration and decreased PO intake. -Pt was given pureed diet with no straws by speech -ensure enlive BID -fall precautions in place -Dietitian consult -Palliative care consult - plan was discussed with niece, who is patient's closest relative other than son who has MR and would be unable to make decisions. Decision was made to proceed with Hospice at this time. dCHF No s/s of volume overload. Last ECHO was 55-60% in 08/2017. -continue ASA and Lasix -watch for s/sx of fluid overload A-fib w/ RVR, resolved Pt was found to have afib with RVR on admission. He fell back into NSR in the ER without treatment. -CE indeterminate but downtrended, likely 2/2 Afib w/ RVR -TSH wnl Normocytic Anemia Stable. Iron studies are consistent with Anemia of Chronic Disease. B12 WNL. RBC folate WNL. -Will continue to monitor. Dispo: Plan to d/c back to [facility] today with hospice <Jazmny Marie - Last Filed: 12/17/17 09:03> Attending Addendum - Attending Addendum Date/Time: 12/17/17 8122 I personally evaluated the patient and discussed the management with Dr. Marie. I agree with the History, Examination, Assessment and Plan documented above with any addition or exceptions noted below. The patient will transition to po antibiotics and be discharged to [facility] on hospice. <Velia Adler - Last Filed: 12/17/17 17:12>
[2017-12-17 10:30] LABS: Vancomycin, Trough 16.4 ug/mL
[2017-12-17 11:40] VITALS: BP 118/62; TEMP 98
--- NOTE | 2017-12-20 00:13 | DIS-2 ---
DATE OF ADMISSION: 12/11/2017 DATE OF DISCHARGE: 12/17/2017 ADMITTING ATTENDING: Cristofer Sidhu MD DISCHARGE ATTENDING: Velia Adler MD ADMITTING RESIDENT: Camilla Saavedra MD DISCHARGE RESIDENT: Jazmyn Marie MD CONSULTS: Palliative Care. PROCEDURES: None. PRIMARY DIAGNOSES: 1. Sepsis. 2. Community-acquired pneumonia. 3. Atrial fibrillation with rapid ventricular response. 4. Elevated lactic acid. 5. Hypokalemia. 6. Normocytic anemia. 7. Advanced dementia. SECONDARY DIAGNOSES: 1. Heart failure with preserved ejection fraction. 2. Hypertension. DISCHARGE MEDICATIONS: 1. Augmentin 875/125 mg 1 tablet p.o. b.i.d. for 5 days. 2. Aspirin 81 mg p.o. daily. 3. Tessalon Perles 100 mg p.o. t.i.d. 4. Donepezil 5 mg p.o. at bedtime. 5. Famotidine 20 mg p.o. b.i.d. 6. Simvastatin 40 mg p.o. at bedtime. 7. Lasix 20 mg p.o. daily. 8. Robitussin 10 mL p.o. q.6 hours as needed for cough. 9. Levaquin 750 mg p.o. daily for 5 days. 10. Potassium chloride 10 mEq p.o. q.a.m. with meals. DISCONTINUED MEDICATIONS: None. HISTORY OF PRESENT ILLNESS AND HOSPITAL COURSE: This is an 87-year-old male with past medical history of advanced dementia, who resides at [facility], who presented due to fever and agitation. The patient was found to have a significant productive cough. The patient initially had a heart rate of 93, respiratory rate of 26, and a temperature of 102.9 as well as a chest x-ray that showed a right basilar opacity. The patient did not have an elevated white count at that time. However, the patient's lactic acid was 4.4. The patient was treated with vancomycin and Zosyn as well as fluids for the community-acquired pneumonia. The patient had concern for aspiration and SIRS. Speech therapy was consulted to evaluate the patient and they did not find any clear evidence of aspiration, but he had residuals in his mouth. He was cleared for a pureed diet with no straws. On 12/14, the patient seemed to have worsened, so even though the patient had been taken off the vent because patient was getting better, tolerated this. When he worsened, the patient's coverage was broadened again to include vancomycin and repeat chest x-ray showed persistent airspace opacity at the right lung base with developing density in the retrocardiac region of the left lung base and left mid lung. Azithromycin was added at this point as well. After this point, the patient seemed to clinically improve and stopped having fevers. The patient had no growth on his blood cultures. The patient's lactic acidosis resolved with fluids. The patient did have palliative care consulted and they deemed that he was appropriate for hospice. The patient's closest relative who is able to make decisions for the patient is his niece and she decided to proceed with hospice at this time. Of note, the patient initially on admission was found to be in atrial fibrillation with RVR; however, he quickly went back into normal sinus rhythm in the ER without treatment. The patient was discharged back to [facility] on hospice with a 5-day course of Levaquin and Augmentin to finish out for the community-acquired pneumonia. DISPOSITION: Guarded. DISCHARGE INSTRUCTIONS: 1. Location: [facility]. 2. Diet: Heart healthy with pureed with nectar thick liquids. 3. Activity: As tolerated. 4. Followup: Follow up with Dr.Van Zamora and Dr. Adler within 3-5 days. [facility] CENTERKirill
== END 2017-12-17 14:25 | DRG 871 ==
LOC: ERS 12:42 → 2NO 15:12 → T4-A 12-15 17:12
PROVIDERS: ADMIT Family Medicine; ATTEND Family Medicine
DX: A41.9 Sepsis, unspecified organism (principal); J18.9 Pneumonia, unspecified organism; E87.2 Acidosis; I50.32 Chronic diastolic (congestive) heart failure; I48.91 Unspecified atrial fibrillation; F03.90 Unspecified dementia, unspecified severity, without behavioral disturbance, psychotic disturbance, mood disturbance, and anxiety; E87.6 Hypokalemia; D63.8 Anemia in other chronic diseases classified elsewhere; Z51.5 Encounter for palliative care; R31.9 Hematuria, unspecified; Z86.19 Personal history of other infectious and parasitic diseases; I11.0 Hypertensive heart disease with heart failure
CPT/HCPCS: 36415; 51701; 71045; 74230; 80048; 80053; 80202; 81003; 81015; 82553; 82607; 82728; 82747; 83540; 83550; 83605; 83735; 84443; 84484; 85025; 87040; 87086; 87804; 93005; 93010; 94640; 96360; 96361; 96365; A4216; G8996-GN-CL; G8996-GN-CM; G8997-GN-CJ; G8997-GN-CK; J1650; J1940; J2543; J3370; J3480; J7050; J7620

== ENCOUNTER 2019-01-15 15:28 | Emergency (ER) | payer MEDICARE, MEDICAID ==
[2019-01-15 16:02] LABS: Hemoglobin 11.8 g/dL (14.0-18.0); Mean Corpuscular HGB CONC 34.4 g/dL (32.0-36.0); Mean Corpuscular Hemoglobin 33.7 pg (27.0-31.0); Mean Corpuscular Volume 98.2 fL (78.0-98.0); Mean Platelet Volume 6.3 fL (7.4-10.4); Platelet Count 222 thou/uL (130-400); RBC Distribution Width 14.3 % (11.5-14.5); Red Blood Cell (RBC) Count 3.51 mill/uL (4.70-6.10); White Blood Cell (WBC) Count 2.8 thou/uL (4.8-10.8)
--- NOTE | 2019-01-15 16:15 | CT ---
CT Brain WO Con: 01/15/2019 3:58 PM CLINICAL HISTORY: Posttraumatic pain. Syncopal event. COMPARISON: 08/28/2017 FINDINGS: Hemorrhage: None. Ventricular system: Stable, mildly prominent which may relate to compensatory dilatation from prequel volume loss. Cerebral parenchyma: Microvascular ischemic disease Midline shift: None. Mass: No mass effect. Calvarium: Normal. Visualized Paranasal sinuses: Mucosal thickening/retention cyst formation.. IMPRESSION: No acute intracranial abnormalities.
[2019-01-15 16:16] LABS: Band 6 % (5-11); Eosinophils 5 % (0-10); Lymphocytes 41 % (21-51); MDiff Complete? YES; Monocytes 10 % (0-10); Neutrophil 28 % (42-75); Platelet Morphology Comment Appears Adequate; RBC Morphology Normal; Reactive Lymphocytes 10 % (0-10)
--- NOTE | 2019-01-15 16:16 | RAD ---
Exam: Chest one view HISTORY:Syncope Comparison: 12/14/2017 FINDINGS: Lungs: No masses or consolidation. Cardiac silhouette:Enlarged Pulmonary vessels: Normal Pleural Spaces: Clear Pneumothorax: None Osseous abnormalities: None of acuity. IMPRESSION: No focal consolidation. Prominent cardiac silhouette. Correlate clinically.
--- NOTE | 2019-01-15 16:19 | CT ---
EXAM: CT of the cervical spine without contrast HISTORY: Syncope with neck pain COMPARISON: None TECHNIQUE: Multiple contiguous axial images were obtained in a CT of the cervical spine without contr ast. Sagittal and coronal reformats were performed. FINDINGS: The vertebral bodies demonstrate normal height and alignment without fracture or subluxatio n. No prevertebral soft tissue swelling is seen. Mild degenerative changes are seen throughout the cervical spine with intervertebral disc space narrowing and osteophyte formation, greatest at C5/6. The posterior facets are well aligned. Normal alignment of the skull base with the cervical spine is seen. The lung apices and cervical soft tissues are unremarkable. IMPRESSION: No evidence of acute osseous abnormality of the cervical spine.
[2019-01-15 16:28] LABS: ALT (SGPT) 8 U/L (8-55); AST (SGOT) 15 U/L (5-34); Albumin 4.2 g/dL (3.4-4.8); Alkaline Phosphatase 61 U/L (40-150); Anion Gap 11 mmol/L (10-20); BUN (Urea Nitrogen) 15 mg/dL (8.4-25.7); Bilirubin, Total 0.8 mg/dL (0.2-1.2); Calc. Creatinine Clearance 0 mL/min (70-130); Calcium 8.7 mg/dL (7.8-10.44); Carbon Dioxide 27 mmol/L (23-31); Chloride 104 mmol/L (98-107); Estimated GFR-MDRD 67; Globulin 2.6 g/dL (2.4-3.5); Glucose 109 mg/dL (83-110); Potassium 4.3 mmol/L (3.5-5.1); Protein, Total 6.8 g/dL (5.8-8.1); Sodium 138 mmol/L (136-145)
[2019-01-15 17:16] LABS: Bilirubin Negative (Negative); Blood, Urine Negative (Negative); Clarity CLEAR (Clear); Glucose, Urine (Dipstick) Negative (Negative); Leukocyte Negative (Negative); Nitrite Negative (Negative); Protein, Urine (Dipstick) Negative (Neg-Trace); Specific Gravity, Urine 1.008 (1.002-1.036)
== END 2019-01-15 18:38 ==
LOC: ERS 15:28
DX: S01.21XA Laceration without foreign body of nose, initial encounter (principal); I50.9 Heart failure, unspecified; I48.91 Unspecified atrial fibrillation; F03.90 Unspecified dementia, unspecified severity, without behavioral disturbance, psychotic disturbance, mood disturbance, and anxiety; Z79.899 Other long term (current) drug therapy; Z79.82 Long term (current) use of aspirin; W22.8XXA Striking against or struck by other objects, initial encounter
CPT/HCPCS: 36415; 51701; 70450; 71045; 72125; 80053; 81003; 82550; 84484; 85025; 93005

== ENCOUNTER 2019-03-23 20:02 | Emergency (ER) | payer MEDICARE, MEDICAID ==
--- NOTE | 2019-03-23 21:40 | CT ---
CT cervical spine without contrast: 03/23/2019 COMPARISON: 01/15/2019 HISTORY: Fall, trauma, pain TECHNIQUE: Axial CT imaging at 2.5 mm intervals through the cervical spine without contrast. Coronal and sagittal reformatted imaging obtained. FINDINGS: The C1 ring is intact. The occipital condyles, the dens, and the C1-2 articulation demonstr ate no acute findings. There is prominent multilevel bilateral facet and uncovertebral osteophyte formation, stable. Imaged lung apices are unremarkable. No significant interval change. No acute fracture or evidence of dislocation. Minimal anterolisthesis again noted at C4-5 and at C7-T1. IMPRESSION: Stable multilevel degenerative change within the cervical spine. No acute fracture or kelsey dence of dislocation.
--- NOTE | 2019-03-23 21:41 | CT ---
Head CT without contrast 03/23/2019: COMPARISON: 01/15/2019 HISTORY: Fall, trauma, pain TECHNIQUE: Axial CT imaging at 5 mm intervals from vertex through skull base without contrast FINDINGS: There is mild mucosal thickening of the right sphenoid sinus. There is no intracranial hemo rrhage, midline shift, mass effect, or ventricular enlargement. No displaced calvarial fracture. IMPRESSION: Stable head CT-no acute findings.
== END 2019-03-23 22:59 ==
LOC: ERS 20:02
DX: F03.90 Unspecified dementia, unspecified severity, without behavioral disturbance, psychotic disturbance, mood disturbance, and anxiety (principal); K02.9 Dental caries, unspecified; I50.9 Heart failure, unspecified; I49.9 Cardiac arrhythmia, unspecified; I48.91 Unspecified atrial fibrillation; W18.30XA Fall on same level, unspecified, initial encounter
CPT/HCPCS: 70450; 72125

== ENCOUNTER 2019-10-08 00:05 | Emergency (ER) | payer MEDICARE, OTHER ==
--- NOTE | 2019-10-08 09:00 | CT ---
PRELIMINARY REPORT/[facility]/AFTER HOURS PROCEDURE CT HEAD WITHOUT INTRAVENOUS CONTRAST: CLINICAL HISTORY: ER 12. Possible fall. Patient has abrasion to bridge of nose, unk cause. TECHNIQUE: Axial computed tomography images of the head/brain without intravenous contrast. COMPARISON: None provided. FINDINGS: BRAIN: No acute intraparenchymal hemorrhage. No mass lesion. No CT evidence for acute territorial inf arct. No midline shift or extra-axial collection. Scattered white matter hypodensities compatible wit h chronic small vessel ischemic change. VENTRICLES: No hydrocephalus. Diffuse enlargement of the ventricles and sulci compatible with age-re lated cerebral atrophy. ORBITS: The orbits are unremarkable. SINUSES AND MASTOIDS: The paranasal sinuses and mastoid air cells are clear. SOFT TISSUES: No significant facial or scalp soft tissue swelling evident. No radiopaque foreign body is seen. BONES: No acute skull fracture. IMPRESSION: 1. No acute intracranial abnormality. 2. Age-related cerebral atrophy and chronic microvascular ischemic changes. ELECTRONICALLY SIGNED BY: Kareem Loomis M.D. Oct 08, 2019 2:15:45 AM LOAN CLERK This report is intended for review by the ordering physician only, in accordance of law. If you recei ve this report in error, please call [facility] at [phone]. FINAL REPORT EMERGENT AFTER HOURS CT BRAIN WITHOUT IV CONTRAST: 10/08/2019 2:07 a.m. No mass, bleed or other acute process. Age-related changes bilaterally. This report is in agreement with the preliminary report. CODE QA POS: [facility]
--- NOTE | 2019-10-08 09:04 | CT ---
PRELIMINARY REPORT/[facility]/AFTER HOURS PROCEDURE CT MAXILLOFACIAL WITHOUT INTRAVENOUS CONTRAST: CLINICAL HISTORY: ER 12. Possible fall. Patient has abrasion to bridge of nose, unk cause. TECHNIQUE: Axial computed tomography images of the face without intravenous contrast. Sagittal and coronal refor mations performed. CONTRAST: Without contrast. COMPARISON: None provided. FINDINGS: BONES: No acute fracture or focal osseous lesion. The mandible is intact. SOFT TISSUES: Soft tissue swelling over the nose. SINUSES: The sinuses are clear. ORBITS: The orbits are normal. No retrobulbar hematoma or mass. MISCELLANEOUS: Poor dentition. Degenerative changes of the visualized cervical spine. Atherosclerotic calcification of the carotid arteries. IMPRESSION: Soft tissue swelling over the nose with no acute fractures. ELECTRONICALLY SIGNED BY: Kareem Loomis M.D. Oct 08, 2019 1:32:07 AM [employer] This report is intended for review by the ordering physician only, in accordance of law. If you recei ve this report in error, please call [facility] at [phone]. FINAL REPORT CT FACIAL BONES WITHOUT IV CONTRAST: 10/08/2019 1:07 a.m. Dental caries. No acute fracture or dislocation of the face. Sinus mucosal disease. This report is in agreement with the preliminary report. CODE QA POS: [facility]
== END 2019-10-08 03:26 ==
LOC: ERS 00:05
DX: S01.21XA Laceration without foreign body of nose, initial encounter (principal); I48.91 Unspecified atrial fibrillation; F03.90 Unspecified dementia, unspecified severity, without behavioral disturbance, psychotic disturbance, mood disturbance, and anxiety; I50.9 Heart failure, unspecified; Z79.899 Other long term (current) drug therapy; Z79.82 Long term (current) use of aspirin; W26.9XXA Contact with unspecified sharp object(s), initial encounter
CPT/HCPCS: 12011; 70450; 70486

== ENCOUNTER 2020-05-03 13:52 | Emergency (ER) | payer MEDICARE, MEDICAID ==
--- NOTE | 2020-05-03 15:06 | CT ---
Exam: CT cervical spine without contrast HISTORY: Trauma. Pain. COMPARISON: 04/13/2020 FINDINGS: No craniocervical dissociation. Appropriate alignment of the lateral masses of C1 and C2. Intact odon toid process Appropriate alignment of the facets. 2.2 mm of anterolisthesis of C4 upon C5 and 2.7 mm of anterolisthesis of C7 upon T1, likely on the ba sis of degenerative change. Soft tissue neck structures: No mass, lymphadenopathy or hematoma. No prevertebral soft tissue swelli ng. Upper mediastinum and lung apices: Unremarkable Central spinal canal: Stable multilevel degenerative changes of the cervical spine on the basis of de generative change. There is moderate central canal stenosis C4-C5 and C5-C6. Vertebral bodies: Cervical spine vertebral body height is maintained. No fracture. IMPRESSION: 1. No fracture. 2. Stable degenerative changes of the cervical spine.
--- NOTE | 2020-05-03 15:09 | CT ---
CT HEAD WITHOUT CONTRAST: 05/03/20 INDICATIONS: Fall with injury to head. COMPARISON: Comparison made to head Ct of 04/13/20. Cortical volume loss is again seen. No evidence of infarct, mass or edema. No evidence of acute hemor rhage. Increased density in the peripheral cortex of the right frontal lobe on image 23 is felt to be artifa ctual with some spray artifact form the calvarium. The sinuses appear clear. IMPRESSION: No evidence of acute process. POS: OFF
[2020-05-03] MEDS ORDERED: Boostrix 0.5 ML VIAL ONE (16:35)
== END 2020-05-03 17:35 ==
LOC: ERS 13:52
DX: S01.01XA Laceration without foreign body of scalp, initial encounter (principal); I48.91 Unspecified atrial fibrillation; I50.9 Heart failure, unspecified; Z79.82 Long term (current) use of aspirin; Z79.899 Other long term (current) drug therapy
CPT/HCPCS: 70450; 72125; 90471; 90715; 93005

== ENCOUNTER 2020-05-24 09:13 | Emergency (ER) | payer MEDICARE, MEDICAID ==
[2020-05-24] MEDS ORDERED: Lidocaine 1% w/Epinephrine 1:100K 20 ML VIAL ONE (09:34)
--- NOTE | 2020-05-24 10:40 | CT ---
Exam: Head CT without contrast HISTORY: Unwitnessed fall. Laceration above the left eyebrow. COMPARISON: none FINDINGS: Hemorrhage: No intraparenchymal hemorrhage or extra-axial hematoma. Brain parenchyma: Cortical kothari-white matter differentiation is preserved. No mass effect or midline shift. Basilar cisterns are patent.There are chronic small vessel ischemic changes white matter. Ventricular system: Ventricles and sulci are patent and symmetric. Calvarium: Intact. Sinuses and mastoid air cells: Adequate aeration. Additional findings: Remote bilateral nasal bone fractures. IMPRESSION: No acute intracranial process.
--- NOTE | 2020-05-24 10:45 | CT ---
Exam: CT cervical spine without contrast HISTORY: Trauma. Pain. COMPARISON: 05/03/2020 FINDINGS: No craniocervical dissociation. Appropriate alignment of the lateral masses of C1 and C2. Intact odon toid process Appropriate alignment of the facets. Stable spondylolisthesis and straightening of cervical lordosis. Soft tissue neck structures: No mass, lymphadenopathy or hematoma. No prevertebral soft tissue swelli ng. Upper mediastinum and lung apices: Unremarkable Central spinal canal: Stable loss of disc space height, osteophyte formation. Stable varying degrees of central canal stenosis and neural foraminal narrowing. Stable facet hypertrophy. Vertebral bodies: Cervical spine vertebral body height is maintained. No fracture. IMPRESSION: 1. No fracture. 2. Stable multilevel degenerative changes.
== END 2020-05-24 12:27 ==
LOC: ERS 09:13
DX: S01.81XA Laceration without foreign body of other part of head, initial encounter (principal); I48.91 Unspecified atrial fibrillation; I50.9 Heart failure, unspecified; F03.90 Unspecified dementia, unspecified severity, without behavioral disturbance, psychotic disturbance, mood disturbance, and anxiety; W17.89XA Other fall from one level to another, initial encounter
CPT/HCPCS: 12013; 70450; 72125

== ENCOUNTER 2020-07-01 08:22 | Inpatient (IN) | payer MEDICARE, MEDICAID ==
[2020-07-01] MEDS ORDERED: Acetaminophen 650 MG Suppository ONE (09:09)
[2020-07-01] MEDS ORDERED: Acetaminophen 325 MG Suppository ONE (09:09)
[2020-07-01] MEDS ORDERED: Vancomycin 1 GM/200 ML BAG ONE (09:09)
[2020-07-01] MEDS ORDERED: Dexamethasone 10 MG/ML VIAL ONE (09:09)
--- NOTE | 2020-07-01 09:15 | RAD ---
EXAM: Single view of the chest HISTORY: Covid positive with shortness of breath COMPARISON: 01/15/2019 FINDINGS: Single view of the chest shows an enlarged but stable cardiomediastinal silhouette. Athero sclerotic calcifications are seen in the aorta. Increased interstitial markings are present. An 8 mm nodular opacity projecting over the right chest wall could potentially represent a nipple shadow. There is no evidence of consolidation, mass, or pleural effusion. Degenerative changes are seen in the spine. IMPRESSION: 1. Right pulmonary nodule should be followed with a chest CT with contrast for further evaluation.
[2020-07-01 09:16] LABS: Bacteria/HPF 3+ HPF (None Seen); Bilirubin Negative (Negative); Blood, Urine Trace (Negative); Clarity Turbid (Clear); Glucose, Urine (Dipstick) Normal (Negative); Ketone, Urine Negative (Negative); Leukocyte Negative Leu/uL (Negative); Nitrite Negative (Negative); Protein, Urine (Dipstick) 70 mg/dL (Neg-Trace); RBC/HPF 0-3 HPF (0-3); Specific Gravity, Urine 1.029 (1.002-1.036); Squamous Epithelial 0-3 HPF (0-3); pH, Urine 5.5 (5.0-9.0)
[2020-07-01 10:14] LABS: ALT (SGPT) 57 U/L (8-55); AST (SGOT) 86 U/L (5-34); Albumin 3.6 g/dL (3.4-4.8); Alkaline Phosphatase 85 U/L (40-110); Anion Gap 16 mmol/L (10-20); BUN (Urea Nitrogen) 62 mg/dL (8.4-25.7); Bilirubin, Total 1.2 mg/dL (0.2-1.2); CK (CPK) 348 U/L (30-200); Calc. Creatinine Clearance 0 mL/min (70-130); Calcium 8.8 mg/dL (7.8-10.44); Carbon Dioxide 26 mmol/L (23-31); Chloride 120 mmol/L (98-107); Estimated GFR-MDRD 38; Globulin 4.1 g/dL (2.4-3.5); Glucose 135 mg/dL (83-110); Potassium 3.3 mmol/L (3.5-5.1); Protein, Total 7.7 g/dL (5.8-8.1); Sodium 159 mmol/L (136-145)
[2020-07-01 10:20] LABS: Band 30 % (5-11); Eosinophils 1 % (0-10); Hemoglobin 17.8 g/dL (14.0-18.0); Lymphocytes 23 % (21-51); MDiff Complete? YES; Mean Corpuscular HGB CONC 32.1 g/dL (32.0-36.0); Mean Corpuscular Hemoglobin 31.5 pg (27.0-31.0); Mean Corpuscular Volume 98.1 fL (78.0-98.0); Mean Platelet Volume 7.3 fL (7.4-10.4); Metamyelocyte 1 % (0-0); Monocytes 4 % (0-10); Neutrophil 39 % (42-75); Nucleated RBC 1 % (0); Platelet Count 149 thou/uL (130-400); Platelet Morphology Comment Appears Adequate; RBC Distribution Width 14.7 % (11.5-14.5); Reactive Lymphocytes 2 % (0-10); Red Blood Cell (RBC) Count 5.66 mill/uL (4.70-6.10); Toxic Granulation SLIGHT; White Blood Cell (WBC) Count 4.9 thou/uL (4.8-10.8)
[2020-07-01 10:37] LABS: CKMB 1.6 ng/mL (0-6.6)
[2020-07-01] MEDS ORDERED: Piperacillin/Tazobactam 4.5 GM VIAL ONE (10:37)
[2020-07-01] MEDS ORDERED: Norepinephrine 8 MG/0.9% NS 250 ML IVPB SCH (11:15)
[2020-07-01] MEDS ORDERED: Norepinephrine 4 MG/4 ML VIAL ONE (11:28)
--- NOTE | 2020-07-01 11:29 | PDOC.FPRHP ---
- History of Present Illness Chief Complaint: SOB History of Present Illness: Pt is an 89 yo male w/ hx of dementia, a fib and HTN who presents from [place] with SOB. Pt unable to give history so history obtained from EMS and past records. Resident at [facility], had COVID + test last week. Today he was found to have O2 sats in lower 80s and SOB. EMS placed him on non-rebreather and his sats improved to upper 90s. In ED was found to be tachypneic, T 99.7, BP 76/49. R femoral central line was placed and levophed gtt started. Given bolus of 30ml/kg of NS. Placed on NC @ 4L, O2 sat 86%. Currently on HF NC 50L @ 50% FiO2. ED Course: tylenol 1g, decadron 12mg, vancomycin 1g, NS 30ml/kg, levophed 1 mcg/min, Zosyn 4.5mg - Allergies/Adverse Reactions Allergies Allergy/AdvReac Type Severity Reaction Status Date / Time No Known Drug Allergies Allergy Verified 07/02/20 03:32 - Home Medications Medication Instructions Recorded Confirmed Type Aspirin [Ecotrin Low Strength] 81 mg PO DAILY tab 03/03/17 07/02/20 Rx Furosemide [Lasix] 20 mg PO DAILY #30 tab 08/26/17 07/02/20 Rx Potassium Chloride [Klor-Con 10] 10 meq PO QAM-WM #30 tab 08/26/17 07/02/20 Rx Donepezil HCl [Aricept] 5 mg PO HS 12/11/17 07/02/20 History Benzonatate [Tessalon] 100 mg PO TID cap 12/17/17 Rx Famotidine [Pepcid] 20 mg PO BID tab 12/17/17 Rx Guaifenesin DM 100-10 [Robitussin 10 ml PO Q12HR PRN 07/02/20 07/02/20 History DM] Lisinopril [Zestril] 2.5 mg PO DAILY 07/02/20 07/02/20 History - History History obtained from previous medical records PMHx: paroxysmal a fib, dementia, CHF PSHx: appendectomy FHx: father-cancer Social: lives at [facility] - Review of Systems ROS unobtainable: due to mental status (dementia and at baseline of oriented X0) - Vital signs BP: 117/80 off pressor support 96% O2 sat on HFNC 94 HR 25 RR 99.7 F Temp. - Physical Exam -Constitutional: at baseline mentation with no verbalization of coherent words, only mumbling. respiratory distress with RR of 25 breaths per minute. Cachectic HEENT: normocephalic and atraumatic -HEENT: Dry MM bilateral crusting of eyelids with yellow exudate Poor dentition Neck: supple, trachea midline, no JVD, no thyromegaly Chest: no lesions Heart: no murmurs/rubs/gallops, pulses present, no edema -Heart: irregularly irregular HR, rate 90's No JVD No peripheral edema Lungs: good air movement, no retractions -Lungs: tachypneic with RR 25 Respiratory distress no accessory muscle use. Abdomen: soft, non-tender, bowel sounds present, no masses/distention -Musculoskeletal: cachectic muscle wasting of all major muscle groups -Neurological: Does not respond to commands, however this is his baseline at [place], per PCP Pupils equal and sluggish to light reflex bilaterally. Skin: no rash/lesions -Skin: Increased skin tenting Heme/Lymphatic: no unusual bruising or bleeding, no purpura -Psychiatric: somnolent, non-verbal, this is pt's baseline. Does not respond to commands. FMR H&P: Results - Labs Result Diagrams: 07/02/20 06:50 07/02/20 06:00 Lab results: WBC 4.9 thou/uL (4.8-10.8) 07/01/20 09:30 Hgb 17.8 g/dL (14.0-18.0) 07/01/20 09:30 Hct 55.5 % (42.0-52.0) H 07/01/20 09:30 MCV 98.1 fL (78.0-98.0) H 07/01/20 09:30 Plt Count 149 thou/uL (130-400) 07/01/20 09:30 Band Neuts % (Manual) 30 % (5-11) H 07/01/20 09:30 Sodium 159 mmol/L (136-145) H 07/01/20 09:30 Potassium 3.3 mmol/L (3.5-5.1) L 07/01/20 09:30 Chloride 120 mmol/L (98-107) H 07/01/20 09:30 Carbon Dioxide 26 mmol/L (23-31) 07/01/20 09:30 BUN 62 mg/dL (8.4-25.7) H 07/01/20 09:30 Creatinine 1.69 mg/dL (0.7-1.3) H 07/01/20 09:30 Glucose 135 mg/dL (83-110) H 07/01/20 09:30 Lactic Acid 2.0 mmol/L (0.5-2.2) 07/01/20 09:30 Calcium 8.8 mg/dL (7.8-10.44) 07/01/20 09:30 Total Bilirubin 1.2 mg/dL (0.2-1.2) 07/01/20 09:30 AST 86 U/L (5-34) H 07/01/20 09:30 ALT 57 U/L (8-55) H 07/01/20 09:30 Alkaline Phosphatase 85 U/L (40-110) 07/01/20 09:30 Creatine Kinase 348 U/L (30-200) H 07/01/20 09:30 CK-MB (CK-2) 1.6 ng/mL (0-6.6) 07/01/20 09:30 Serum Total Protein 7.7 g/dL (5.8-8.1) 07/01/20 09:30 Albumin 3.6 g/dL (3.4-4.8) 07/01/20 09:30 Urine Ketones Negative mg/dL (Negative) 07/01/20 08:55 Urine Blood Trace (Negative) A 07/01/20 08:55 Urine Nitrite Negative (Negative) 07/01/20 08:55 Ur Leukocyte Esterase Negative Saturnino/uL (Negative) 07/01/20 08:55 Urine RBC 0-3 HPF (0-3) 07/01/20 08:55 Urine WBC 4-6 HPF (0-3) A 07/01/20 08:55 Ur Squamous Epith Cells 0-3 HPF (0-3) 07/01/20 08:55 Urine Bacteria 3+ HPF (None Seen) A 07/01/20 08:55 - EKG Interpretation EKG: A fib with rate 88 Left axis deviation - Radiology Interpretation Chest x-ray Status: image reviewed by me, report reviewed by me (R sided pulmonary nodule, rec f/u CT scan. Will discuss with family if this is desired.) FMR H&P: A/P - Problem List (1) Acute respiratory failure with hypoxia Current Visit: Yes Status: Acute Code(s): J96.01 - ACUTE RESPIRATORY FAILURE WITH HYPOXIA (2) Acute kidney injury Current Visit: Yes Status: Acute Code(s): N17.9 - ACUTE KIDNEY FAILURE, UNSPECIFIED (3) COVID-19 Current Visit: Yes Status: Acute Code(s): U07.1 - COVID-19 (4) Hypernatremia Current Visit: Yes Status: Acute Code(s): E87.0 - HYPEROSMOLALITY AND HYPERNATREMIA (5) Hypokalemia Current Visit: Yes Status: Acute Code(s): E87.6 - HYPOKALEMIA (6) Dementia Current Visit: No Status: Acute Code(s): F03.90 - UNSPECIFIED DEMENTIA WI THOUT BEHAVIORAL DISTURBANCE Qualifiers: Dementia type: unspecified type Dementia behavioral disturbance: without behavioral disturbance Qualified Code(s): F03.90 - Unspecified dementia without behavioral disturbance (7) HTN (hypertension) Current Visit: No Status: Acute Code(s): I10 - ESSENTIAL (PRIMARY) HYPERTENSION Qualifiers: Hypertension type: essential hypertension Qualified Code(s): I10 - Essential (primary) hypertension (8) Sepsis Current Visit: No Status: Acute Code(s): A41.9 - SEPSIS, UNSPECIFIED ORGANISM Qualifiers: Sepsis type: sepsis due to unspecified organism Qualified Code(s): A41.9 - Sepsis, unspecified organism (9) Atrial fibrillation Current Visit: No Status: Chronic Code(s): I48.91 - UNSPECIFIED ATRIAL FIBRILLATION Qualifiers: Atrial fibrillation type: chronic Comment: Rate control only, anticoagulation contraindicated due to fall risk. - Plan 89yo male w/ hx of dementia and a fib w/ known COVID + test one week ago, who presents from [place] with SOB #Sepsis 2/2 COVID pneumonia -criteria: HR and RR. BP 76/29 -CXR: R pulm nodule,no infiltrates. increased interstitial marking, No effusions -central line was placed and levophed gtt started, wean as tolerated -given 30ml/kg NS in ED, now on LR @ 100ml/hr -central line placed, levophed gtt started -pending procal, CRP, ferritin, d dimer, BCx, UCx -admit to IMCU -empiric abx: Vanc, Zosyn -started decadron and convalescent plasma #Acute hypoxic resp failure 2/2 COVID pneumonia -was found to be hypoxic at [place], O2 sat 86% on 4L NC, now on HF NC 50L, 50% FiO2 -pulm consulted #LENA -Cr 1.69, CrCl 25 -heparin for DVT ppx -will avoid nephrotoxic agents -recheck with am CMP #hypernatremia -Na 159, likely due to dehydration -given IVF in ED and on maintenance now -will continue to monitor #hypokalemia -K 3.3 -will replace as needed and continue to monitor #indeterminate troponin -trop 0.047, will trend -ekg: a fib, rate 88, no ST changes #transaminitis -likely due to COVID -will continue to monitor #paroxysmal a fib -ekg: afib, rate controlled -no on anticoagulation due to frequent falls #HTN -on presentation to ED was hypotensive -continue home meds once stable #dementia -aware, continue home meds Code: DNAR PCP:YOUNG Murrieta IVF: LR @ 100ml/hr Lines: R femoral DVT Ppx: heparin Dispo: Admit IMCU, on HF NC, pulm consulted, palliative consulted, LOS >48hrs FMR H&P: Upper Level - Pertinent history History obtained from previous medical records PMHx: paroxysmal a fib, dementia, CHF, recurrent falls. PSHx: appendectomy FHx: father-cancer Social: Lives at [facility], non-verbal - Pertinent findings 89 y/o M presents to ER from [facility] with acute hypoxic respiratory failure with O2 sats in the 80's before being placed on a non-rebreather mask by EMS. Pt was found to be COVID-19 positive. Pt desated to 88% in ER and was escalated to HFNC. 96% O2 sat on HFNC upon admission exam. Pt had low BP and a central line was placed and stared on levophed. Received 30 ml/Kg IVF NS bolus per sepsis PE: dry MM, exudate around eyes with matting bilaterally. cachectic Non-verbal and does not respond ot commands, this is pt's baseline at the [facility]. Irregularly irregular, with HR 90's. No murmurs. Coarse breath sounds with good air movement. Tachypneic and moderate respiratory distress. Muscle wasting of all major muscle groups Labs: Na 159, K 3.3, Cr 1.69, AST 86, ALT 57, Trop 0.047, CK 348 CXR: Possible Right sided pulmonary nodule vs nipple shadow, no infiltrates. increased interstitial marking. Stable but enlarged cardiomegaly. No effusions EKG: no ST elevations, L axis deviation, rate 88, A fib. 1) Sepsis with Acute Hypoxic resp failure 2/2 COVID-19 - RR 25, on HFNC with O2 sat of 96%, HR>90 - admit to ICU for HFNC and Pulm consult - given 30 ml.kg fluid bolus. then 100 ml/hr of LR. - on levophed for pressure support - continue zosyn and vanc IV antibiotic until culture results. Pharm to dose due to CrCl <30 - CXR: Possible R sided pulmonary nodule, further imaging recommended. Will discuss care plan with family and goals of care for if further workup is wanted or not with DNR status. - Heparin for dvt ppx - Procal, D-Dimer, Ferritin, and CRP added to admission labs 2) Indeterminate Troponin levels - EKG a fib, rate 88. No ST elevations - Trop 0.047, repeat in 3 hours X2. - reported hx of CHF with echo of 55-60 EF in 2018. 3) Hypernatremia - received 30 ml/kg IVF NS in ER. - Na 159, will trend daily CMP 4) Hypokalemia - K 3.3, trend - ordered 20 meq K IV. 5) LENA - Cr 1.69. CrCl <30 - continue 100 ml/hr LR after fluid bolus - urine c/w dehydration, culture sent. continue zosyn until ccx results 6) elevated liver transaminases - likely 2/2 to covid-19 - will trend 7) elevated CK 348, will trend likely secondary to dehydration 8) chronic a fib, not on anticoagulation due to fall risk outweigh benefits. Dispo: admit to ICU for levophed and HFNC to treat sepsis and acute hypoxic resp failure 2/2 covid Code status: DNR per [place] records DVT ppx: heparin diet: NPO, pending speech consult for feeding recs and safety to swallow. Alysha Murrieta, DO -PGY-2 - Plan Date/Time: 07/01/20 [id number] I, [], have evaluated this patient and agree with findings/plan as outlined by investigator internal revenue resident. Pertinent changes/additions are listed here. Addendum - Attending - Attending Attestation Date/Time: 07/02/20 3705 I personally evaluated the patient and discussed the management with Dr. Abad/Lit I agree with the History, Examination, Assessment and Plan documented above with any addition or exceptions noted below. See my dictated H&P for details.
[2020-07-01] MEDS ORDERED: Norepinephrine 8 MG in Dextrose 5% in Water 242 ML IVPB SCH (11:30)
[2020-07-01] MEDS ORDERED: Acetaminophen 325 MG TAB PO PRN (13:06)
[2020-07-01] MEDS ORDERED: Acetaminophen 650 MG Suppository PR PRN (13:06)
[2020-07-01] MEDS ORDERED: Norepinephrine 8 MG/0.9% NS 250 ML IVPB PRN (13:06)
[2020-07-01] MEDS ORDERED: Ondansetron PF 4 MG/2 ML Vial IVP PRN (13:06)
[2020-07-01] MEDS ORDERED: Ondansetron ODT 4 MG TAB PO PRN (13:06)
[2020-07-01 13:19] LABS: Actual Bicarbonate (HCO3a) 18.6 mEq/L (22-28); Analyzer IN Cardio ER; Base Excess (BEa) -4.2 mEq/L (-2.0 to +3.0); CO2 Tension 28.3 mmHg (35.0-45.0); Calcium, Ionized (arterial) 1.14 mmol/L (1.12-1.30); Carboxyhemoglobin (COHb) 0.1 gm% (0.0-3.0); Hemoglobin (Hb) 13.6 g/dL (14.0-18.0); Potassium - ABG Lab 3.12 mmol/L (3.70-5.30); pH, Arterial 7.44 (7.35-7.45)
[2020-07-01 13:20] LABS: ALV-art Gradient 237.125 mmHg (0-20); Puncture Site RRA
[2020-07-01] MEDS ORDERED: Potassium Chloride 20 MEQ in Premix Bag 1 BAG IVPB SCH (13:45)
[2020-07-01 14:41] LABS: Troponin I 0.037 ng/mL (< 0.028)
[2020-07-01 15:47] LABS: SARS-CoV-2 NAA Rapid Test DETECTED (NotDetected)
[2020-07-01] MEDS ORDERED: Vancomycin 1 GM in Premix Bag 1 BAG IVPB SCH (16:30)
[2020-07-01 17:47] LABS: Troponin I 0.029 ng/mL (< 0.028)
[2020-07-01] MEDS: Lactated Ringer's 1,000 ML IV SCH ×2 (18:36→22:22)
[2020-07-01] MEDS: Piperacillin/Tazobactam 3.375 GM in Sodium Chloride 0.9% 100 ML IVPB SCH ×2 (18:36→22:38)
[2020-07-01] MEDS: Heparin 5,000 UNITS/ML VIAL SC SCH ×2 (18:36→22:38)
[2020-07-01] MEDS ORDERED: Heparin 5,000 UNITS/ML VIAL SC SCH (21:00)
[2020-07-01] MEDS: Donepezil HCl 5 MG TAB PO SCH (22:21)
--- NOTE | 2020-07-02 01:03 | HP ---
TIME OF SERVICE: 1130. CHIEF COMPLAINT: Shortness of breath. HISTORY OF PRESENT ILLNESS: I reviewed all documentation, discussed care and management of this patient with Dr. Murrieta and Dr. Abad. I agree with the documentation found in H and P unless otherwise specified in the following attestation. Mr. Zhao is a pleasant, but unfortunate 89-year-old male with a past medical history of CHF, atrial fibrillation, and advanced dementia. He presented from [facility] with a chief complaint of worsening shortness of breath. He was tested positive for COVID earlier this week. He was found to be hypoxic in the low 80s, which responded to non-rebreather mask by EMS. The patient is a DNR, is in our hospital EMR which we will confirm with the family if they wish this to be continued in the hospital. At the time of my examination, the resident team and I spoke with the patient's family and were working on contacting them. The patient is nonverbal and thus is unable to provide additional history. ER COURSE: He received a 30 mL/kg isotonic fluid bolus with Decadron 12 mg and Tylenol 1 g, vancomycin, and Zosyn. His blood pressure remained refractory to fluid resuscitation, so he was started on Levophed at that time. Please see the resident note for past medical, surgical, social, family history, as well as allergies and medications. PHYSICAL EXAMINATION: VITAL SIGNS: Blood pressure 138/102, pulse 112, and respiratory rate 24. GENERAL: Alert and oriented to 0. Patient is nonverbal, appears to be in a mild amount of respiratory distress. CARDIOVASCULAR: Tachycardic, regular. No murmurs. PULMONARY: Tachypneic. PERTINENT LABORATORY FINDINGS: ABG; pH 7.44, pCO2 of 28.3, PO2 of 84, and bicarb 18. Creatinine 1.69, baseline 1.1 to 1.2. Sodium 159 and potassium 3.3. AST 86, ALT 54, and CPK 348. Troponin 0.047, trended to 0.037. UA is concerning for urinary tract infection. SARS-CoV-2 rapid PCR positive. Chest x-ray read as concerning for right lower pulmonary nodule, but on my evaluation, appears to be concerning for early bilateral interstitial pneumonia consistent with viral pneumonia. EKG, atrial fibrillation, rate controlled, normal intervals, no ST elevations or depressions noted. ASSESSMENT: An 89-year-old male with advanced dementia and recent diagnosis in the halfway of COVID-19, presented with worsening respiratory status. PLAN: 1. Acute hypoxic respiratory failure secondary to COVID-19 pneumonia. Continue Decadron. Start remdesivir. Continue high-flow nasal cannula. Convalescent plasma ordered and ready to be administered. Supportive care. We will discuss goals of care with the patient's family as he has advanced dementia is advanced in age and is already a DNR. I think it would be appropriate if the family decides for him transition to palliative care only versus hospice. 2. Septic shock secondary to COVID-19 pneumonia versus UTI. His blood pressure improved with Levophed. We will continue to wean if he no longer requires the pressors, can downgrade to IMCU. Continue vancomycin and Zosyn until cultures results of blood and urine cultures have been collected and are pending. 3. COVID-19 pneumonia, trend labs as above. 4. Dementia. Palliative care consult for goals of care with family. 5. See resident note for chronic medical problems. DISPOSITION: He is admitted under inpatient status in the ICU. Length of stay is likely greater than 2 midnights. His overall prognosis given his recent diagnosis of COVID-19 pneumonia and his overall chronic state makes his current prognosis guarded at this time. Job ID: [id number]
[2020-07-02] MEDS: Piperacillin/Tazobactam 3.375 GM in Sodium Chloride 0.9% 100 ML IVPB SCH ×4 (05:22→22:00)
[2020-07-02 06:51] LABS: ALT (SGPT) 33 U/L (8-55); AST (SGOT) 40 U/L (5-34); Albumin 2.8 g/dL (3.4-4.8); Alkaline Phosphatase 62 U/L (40-110); Anion Gap 14 mmol/L (10-20); BUN (Urea Nitrogen) 51 mg/dL (8.4-25.7); Bilirubin, Total 0.9 mg/dL (0.2-1.2); Calc. Creatinine Clearance 34 mL/min (70-130); Carbon Dioxide 24 mmol/L (23-31); Chloride 126 mmol/L (98-107); Estimated GFR-MDRD 52; Globulin 3.3 g/dL (2.4-3.5); Glucose 148 mg/dL (83-110); Potassium 3.3 mmol/L (3.5-5.1); Protein, Total 6.1 g/dL (5.8-8.1); Sodium 161 mmol/L (136-145)
[2020-07-02 06:52] LABS: Vancomycin, Random 5.2 ug/mL (See Comment)
[2020-07-02] MEDS ORDERED: Dextrose 5% in Water 500 ML IV SCH (07:15)
[2020-07-02] MEDS ORDERED: Dextrose 5% in Water 1,000 ML IV SCH (07:15)
[2020-07-02] MEDS ORDERED: Dextrose 50% Abboject 50 ML SYRINGE SLOW IVP PRN (07:16)
[2020-07-02] MEDS ORDERED: HumaLOG 300 UNITS/3 ML VIAL SC PRN (07:16)
[2020-07-02] MEDS ORDERED: Dextrose 5% in Water 1,000 ML IV PRN (07:16)
[2020-07-02 07:31] LABS: #Lymphocytes 0.8 thou/uL (1.20-3.40); #Monocytes 0.1 thou/uL (0.11-0.59); #Neutrophils 7.9 thou/uL (1.40-6.50); %Basophils 0.1 % (0.0-1.0); %Eosinophils 0.1 % (0.0-10.0); %Lymphocytes 8.7 % (21.0-51.0); %Monocytes 1.3 % (0.0-10.0); %Neutrophils 89.8 % (42.0-75.0); Hemoglobin 12.8 g/dL (14.0-18.0); Mean Corpuscular HGB CONC 33.3 g/dL (32.0-36.0); Mean Corpuscular Hemoglobin 33.1 pg (27.0-31.0); Mean Corpuscular Volume 99.6 fL (78.0-98.0); Mean Platelet Volume 7.7 fL (7.4-10.4); Platelet Count 183 thou/uL (130-400); RBC Distribution Width 14.4 % (11.5-14.5); Red Blood Cell (RBC) Count 3.87 mill/uL (4.70-6.10); White Blood Cell (WBC) Count 8.7 thou/uL (4.8-10.8)
[2020-07-02] MEDS ORDERED: DOPamine 400 MG/D5W 250 ML 250 ML IVPB SCH (08:00)
[2020-07-02] MEDS: Dexamethasone 6 MG in Sodium Chloride 0.9% 50 ML IVPB SCH (08:23)
[2020-07-02] MEDS: Potassium Chloride 10 MEQ TAB PO SCH (08:24)
[2020-07-02] MEDS: Vancomycin 1 GM in Premix Bag 1 BAG IVPB SCH (08:24)
[2020-07-02] MEDS: Dextrose 5% in Water 1,000 ML IV SCH ×2 (08:25→23:38)
[2020-07-02] MEDS: Aspirin 81 mg Enteric Coated Tablet PO SCH (08:25)
[2020-07-02] MEDS: Famotidine 20 MG TAB PO SCH (08:25)
[2020-07-02] MEDS: Heparin 5,000 UNITS/ML VIAL SC SCH ×3 (08:26→22:00)
[2020-07-02] MEDS ORDERED: Enoxaparin Sodium 40 MG/0.4 ML SYRINGE SC SCH (09:00)
[2020-07-02] MEDS ORDERED: Furosemide 20 MG TAB PO SCH (09:00)
[2020-07-02 09:14] LABS: Anion Gap 15 mmol/L (10-20); BUN (Urea Nitrogen) 53 mg/dL (8.4-25.7); Calc. Creatinine Clearance 35 mL/min (70-130); Calcium 7.8 mg/dL (7.8-10.44); Carbon Dioxide 21 mmol/L (23-31); Estimated GFR-MDRD 55; Glucose 211 mg/dL (83-110); Potassium 3.2 mmol/L (3.5-5.1); Sodium 159 mmol/L (136-145)
[2020-07-02 09:17] LABS: Chloride 126 mmol/L (98-107)
[2020-07-02] MEDS ORDERED: Vancomycin 1 GM in Premix Bag 1 BAG IVPB SCH (10:00)
--- NOTE | 2020-07-02 11:05 | PDOC.FM ---
- Subjective Subjective: Map lower not on Pressor support this AM upon arrival to unit. started 5 dopamine ggt, MAP improved to 70 on 50 L and 50% FIO2 HFNC, O2 say 98%, will try and wean today NA 161, given 500 mL bolus of D5W and then started 100 ml/hr D5W. Pt did well overnight. called niece who is POA and she wants, "everything to be done for him to make it through COVID." and revoked his DNR. Wants him to be Full code currently. - Objective Vital Signs & Weight: Vital Signs (12 hours) Temp Pulse Ox 07/02/20 07:47 98.6 F 07/02/20 06:00 98.9 F 07/02/20 00:23 95 07/01/20 23:58 99.4 F Weight Weight 62.006 kg Most Recent Monitor Data Heart Rate from ECG 92 NIBP 90/57 NIBP BP-Mean 68 Respiration from ECG 21 SpO2 97 I&O: 07/01/20 07/02/20 07/03/20 06:59 06:59 06:59 Intake Total 1200 850 Output Total 150 Balance 1200 700 Result Diagrams: 07/02/20 06:50 07/02/20 11:46 Phys Exam - Physical Examination Constitutional: NAD (on HFNC resting well) dry MM Neck: supple Respiratory: no wheezing, no rales, no rhonchi, clear to auscultation bilateral Cardiovascular: no significant murmur irregularly irregular Gastrointestinal: soft, no distention, positive bowel sounds Musculoskeletal: no edema, pulses present Neurological: non-focal, moves all 4 limbs Deviation from normal: chornic dementia and at baseline of oritented X0 Skin: no rash Deviation from normal: increased skin tenting Dx/Plan (1) Acute kidney injury Code(s): N17.9 - ACUTE KIDNEY FAILURE, UNSPECIFIED Status: Acute (2) Acute respiratory failure with hypoxia Code(s): J96.01 - ACUTE RESPIRATORY FAILURE WITH HYPOXIA Status: Acute (3) COVID-19 Code(s): U07.1 - COVID-19 Status: Acute (4) Hypernatremia Code(s): E87.0 - HYPEROSMOLALITY AND HYPERNATREMIA Status: Acute (5) Hypokalemia Code(s): E87.6 - HYPOKALEMIA Status: Acute (6) Sepsis Code(s): A41.9 - SEPSIS, UNSPECIFIED ORGANISM Status: Acute Qualifiers: Sepsis type: sepsis due to unspecified organism Qualified Code(s): A41.9 - Sepsis, unspecified organism - Plan Plan: 1) Sepsis with Acute Hypoxic resp failure 2/2 COVID-19 - RR 25, on HFNC with O2 sat of 96%, HR>90. improving vitals this AM - admitted to [facility] for HFNC and Pulm consult. Try and wean HFNC to NC today. - given 30 ml/kg fluid bolus. then 100 ml/hr of LR overnight. Na 161 AM on 07/02 and swithed to D5W with BMP Q4H today to monitor for improvement. - Received levophed for pressor support in ER and then transferred to [facility] without pressors. Am lower MAP of high 50's. Started 5 Dopamine ggt and improved MAP to 70. - continue zosyn and vanc IV antibiotic until culture results. Pharm to dose due to CrCl <30 - CXR: Possible R sided pulmonary nodule, further imaging recommended. Will discuss care plan with family and goals of care for if further workup is wanted or not with DNR status. - Heparin for dvt ppx - Procal 0.66, D-Dimer 2.43, Ferritin 5198, and CRP 19 on admission, trending Q48 hours 2) Indeterminate Troponin levels, down trended - EKG a fib, rate 88. No ST elevations. Likely 2/2 hypoxia - Trop 0.047, 0.037, 0.029 - reported hx of CHF with echo of 55-60 EF in 2018. 3) Hypernatremia - received 30 ml/kg IVF NS in ER. - Na 159 on admission. Na 161 AM of 07/02. gave 500 mL bolus of D5W and then 100 ml/hr D5W. Repeat Na @ 0830 is 159. trend BMP Q4 hours today. - goal is <8 decrease in sodium over 24 hours. 4) Hypokalemia - K 3.3, 3.2. - ordered 40 meq K IV this AM as well as mag and phos level 5) LENA - Cr 1.69-> 1.29. CrCl <30 - continue 100 ml/hr D5W after fluid bolus - urine c/w dehydration, culture sent. continue zosyn until ccx results - 4.6 L free water deficit calculated. will slowly replace. 6) elevated liver transaminases, improving - likely 2/2 to covid-19 - will trend 7) elevated CK 348, will trend likely secondary to dehydration 8) chronic a fib, not on anticoagulation due to fall risk outweigh benefits. Dispo: admit to IMCU for HFNC- try and wean to NC today, and dopamine ggt to treat sepsis and acute hypoxic resp failure 2/2 covid Code status: Discussion with TANVIR Yarbrough, NOK 07/02: full code DVT ppx: heparin diet: NPO, pending speech consult for feeding recs and safety to swallow. Addendum - Attending - Attending Attestation Date/Time: 07/02/20 9375 I personally evaluated the patient and discussed the management with Dr. Murrieta. I agree with the History, Examination, Assessment and Plan documented above with any addition or exceptions noted below. He had worsened overnight and is now requiring dobutamine for pressor support. I called and discussed his care, condition, and prognosis at length with his niece who is HERMAN. I told her he had worsened overnight and was now requiring pressors with increased requirement on HFNC. I told her if he continues to deteriorate, he would likely need intubation with mechanical ventilation and he would not likely ever be able to come off the ventilator given his advanced age, chronic medical problems, and current illness. She stated that he would not want to remain alive like that. I also told her that if he experience cardiac arrest, he would not likely survive a CODE and if he did, it would be very likely for him to have another cardiac arrest. She agreed that he would not want to have CPR performed. She said she would like to see how he progresses over the next 24 - 48 hrs. I told her that if he worsened, he would be an ideal candidate for hospice services. She states at one point he was on hospice but that she would like to see how he does. I told her Dr. Murrieta would update her tomorrow on his status. He will remain DNR-DNI. Nursing notified.
[2020-07-02] MEDS ORDERED: Potassium Chloride 40 MEQ in Premix Bag 1 BAG IVPB SCH (11:45)
[2020-07-02 12:18] VITALS: BMI 18.5
[2020-07-02 12:23] LABS: Anion Gap 15 mmol/L (10-20); BUN (Urea Nitrogen) 44 mg/dL (8.4-25.7); Calc. Creatinine Clearance 40 mL/min (70-130); Calcium 7.9 mg/dL (7.8-10.44); Carbon Dioxide 21 mmol/L (23-31); Chloride 124 mmol/L (98-107); Estimated GFR-MDRD 62; Glucose 225 mg/dL (83-110); Potassium 3.4 mmol/L (3.5-5.1); Sodium 157 mmol/L (136-145)
[2020-07-02 12:24] LABS: Magnesium 2.5 mg/dL (1.6-2.6); Phosphorus 2.3 mg/dL (2.3-4.7)
[2020-07-02] MEDS ORDERED: Hyoscyamine Sulfate SL 0.125 mg Tablet PO PRN (13:01)
--- NOTE | 2020-07-02 13:36 | PDOC.PALCO ---
Palliative Care Consult - Allergies Allergies/Adverse Reactions: Allergies Allergy/AdvReac Type Severity Reaction Status Date / Time No Known Drug Allergies Allergy Verified 07/02/20 03:32 - Objective Vital Signs: Vital Signs - Most Recent Temp Pulse Resp BP Pulse Ox 98.6 F 95 07/02/20 07:47 07/02/20 08:00 - Problem List (1) Palliative care encounter Code(s): Z51.5 - ENCOUNTER FOR PALLIATIVE CARE Current Visit: Yes Status: Acute (2) Acute respiratory failure with hypoxia Code(s): J96.01 - ACUTE RESPIRATORY FAILURE WITH HYPOXIA Current Visit: Yes Status: Acute (3) COVID-19 Code(s): U07.1 - COVID-19 Current Visit: Yes Status: Acute (4) Acute diastolic CHF (congestive heart failure) Code(s): I50.31 - ACUTE DIASTOLIC (CONGESTIVE) HEART FAILURE Current Visit: No Status: Acute (5) Dementia Code(s): F03.90 - UNSPECIFIED DEMENTIA WITHOUT BEHAVIORAL DISTURBANCE Current Visit: No Status: Acute Qualifiers: Dementia type: unspecified type Dementia behavioral disturbance: without behavioral disturbance Qualified Code(s): F03.90 - Unspecified dementia with out behavioral disturbance (6) Physical deconditioning Code(s): R53.81 - OTHER MALAISE Current Visit: No Status: Acute - Plan/Recommendations Plan: Patient has lived in a custodial home setting secondary to being a total assist for ADL. He was previously on hospice, however secondary to no further decline was pulled off of services. Palliative care will attempt to connect with patient MPOA and revisit Goal of care, with consideration of returning to Hospice to manage patient. Please refer to A Ebony PRYOR notes in note section. [30] minutes spent on this encounter with >50% of the time in counseling and coordination of care. Thank you for this very appropriate consult.
--- NOTE | 2020-07-02 14:43 | PDOC.BPN ---
- Brief Progress Note Dr. Titus, attending physician held discussion with NOK over the phone this afernoon, which led to her deciding the pt to remain DNR.
[2020-07-02 16:43] LABS: Anion Gap 14 mmol/L (10-20); BUN (Urea Nitrogen) 40 mg/dL (8.4-25.7); Calc. Creatinine Clearance 41 mL/min (70-130); Calcium 8.1 mg/dL (7.8-10.44); Carbon Dioxide 24 mmol/L (23-31); Chloride 122 mmol/L (98-107); Estimated GFR-MDRD 66; Glucose 229 mg/dL (83-110); Sodium 156 mmol/L (136-145)
[2020-07-02 20:36] LABS: Anion Gap 15 mmol/L (10-20); BUN (Urea Nitrogen) 37 mg/dL (8.4-25.7); Calc. Creatinine Clearance 45 mL/min (70-130); Carbon Dioxide 22 mmol/L (23-31); Chloride 121 mmol/L (98-107); Estimated GFR-MDRD 73; Glucose 225 mg/dL (83-110); Potassium 3.9 mmol/L (3.5-5.1); Sodium 154 mmol/L (136-145)
[2020-07-02] MEDS: Donepezil HCl 5 MG TAB PO SCH (21:59)
[2020-07-03 01:08] LABS: Anion Gap 13 mmol/L (10-20); BUN (Urea Nitrogen) 34 mg/dL (8.4-25.7); Calc. Creatinine Clearance 56 mL/min (70-130); Calcium 7.8 mg/dL (7.8-10.44); Carbon Dioxide 23 mmol/L (23-31); Chloride 120 mmol/L (98-107); Estimated GFR-MDRD Greater than 90; Glucose 196 mg/dL (83-110); Potassium 3.5 mmol/L (3.5-5.1); Sodium 152 mmol/L (136-145)
[2020-07-03] MEDS: Piperacillin/Tazobactam 3.375 GM in Sodium Chloride 0.9% 100 ML IVPB SCH ×4 (04:51→22:09)
[2020-07-03] MEDS ORDERED: Dextrose 5% in Water 1,000 ML IV SCH (07:08)
[2020-07-03] MEDS: Dextrose 5% in Water 1,000 ML IV SCH ×3 (07:15→22:09)
--- NOTE | 2020-07-03 07:26 | PDOC.FM ---
- Subjective Subjective: Procal increased to 1.76, Na improved to 152. MAP 70-80's on 2.5 of dopamine/hr HFNC @ 55 L and 60% FIO2, this is an increase from yesterday 50/50 Pt not interactive and genet not tolerate diet at this point in time. - Objective MAR Reviewed: Yes Vital Signs & Weight: Vital Signs (12 hours) Temp Pulse Ox 07/03/20 05:30 96.6 F L 07/03/20 02:33 70 L 07/02/20 22:00 96.4 F L 07/02/20 20:00 96 Weight Admit Weight 60.645 kg Weight 62.006 kg Most Recent Monitor Data Heart Rate from ECG 61 NIBP 106/71 NIBP BP-Mean 82 Respiration from ECG 23 SpO2 99 I&O: 07/02/20 07/03/20 07/04/20 06:59 06:59 06:59 Intake Total 1200 3550 75 Output Total 1900 Balance 1200 1650 75 Result Diagrams: 07/02/20 06:50 07/03/20 00:41 Phys Exam - Physical Examination on HFNC, does not respond to commands. Oriented X0 HEENT: moist MMs Neck: no JVD Respiratory: no wheezing coarse breath sounds throughout irregularyl irregular rate and rhythm. Gastrointestinal: soft, no distention, positive bowel sounds Musculoskeletal: no edema, pulses present Skin: no rash Dx/Plan (1) Acute kidney injury Code(s): N17.9 - ACUTE KIDNEY FAILURE, UNSPECIFIED Status: Acute (2) Acute respiratory failure with hypoxia Code(s): J96.01 - ACUTE RESPIRATORY FAILURE WITH HYPOXIA Status: Acute (3) COVID-19 Code(s): U07.1 - COVID-19 Status: Acute (4) Hypernatremia Code(s): E87.0 - HYPEROSMOLALITY AND HYPERNATREMIA Status: Acute (5) Hypokalemia Code(s): E87.6 - HYPOKALEMIA Status: Acute (6) Sepsis Code(s): A41.9 - SEPSIS, UNSPECIFIED ORGANISM Status: Acute Qualifiers: Sepsis type: sepsis due to unspecified organism Qualified Code(s): A41.9 - Sepsis, unspecified organism - Plan Plan: 1) Sepsis with Acute Hypoxic resp failure 2/2 COVID-19 - on admission: RR 25, on HFNC with O2 sat of 96%, HR>90. improving vitals - admitted to IM for HFNC and Pulm consult. HFNC requirements have increased since admission. - Na 161 AM on 07/02 and switched to D5W and improved to 152 on 07/03. switched d5w to 75 ml/hr on 07/03 - Received levophed for pressor support in ER and then transferred to IM without pressors. Am lower MAP of high 50's. Started 5 Dopamine ggt on 07/02 AM and improved MAP to 70's. Dopamine ggt lowered to 2.5 and maintaining MAPs of 70's. - continue zosyn and vanc IV antibiotic until culture results. Pharm to dose due to CrCl <30. no growth to date on ccx's. Procal increased from 0.66 to 1.76. - CXR: Possible R sided pulmonary nodule, further imaging recommended. Will discuss care plan with family and goals of care for if further workup is wanted or not with DNR status. - Heparin for dvt ppx - Procal 0.66-> 1.76, D-Dimer 2.43-> 2.4, Ferritin 5198, and CRP 19-> 23 on admission, trending Q48 hours 2) Indeterminate Troponin levels, down trended - EKG a fib, rate 88. No ST elevations. Likely 2/2 hypoxia - Trop 0.047, 0.037, 0.029 - reported hx of CHF with echo of 55-60 EF in 2018. 3) Hypernatremia, improving - received 30 ml/kg IVF NS in ER. - Na 159 on admission. Na 161 AM of 07/02. gave 500 mL bolus of D5W and then 100 ml/hr D5W on 07/02. - Na 152 on 07/03 AM. - IVF's decreased D5W @ 75 ml/hr. 4) Hypokalemia - improved - K 3.3, 3.2, 3.5 - replace as necessary 5) LENA - improved - Cr 1.69-> 1.29 -> 0.79. - continue 75 ml/hr D5W after fluid bolus - urine c/w dehydration on admission, culture sent. continue zosyn until ccx results - 4.6 L free water deficit calculated. will slowly replace. 6) elevated liver transaminases, improving - likely 2/2 to covid-19 - will trend 7) elevated CK 348 likely secondary to dehydration 8) chronic a fib, not on anticoagulation due to fall risk outweigh benefits. Dispo: admit to IMCU for HFNC and dopamine ggt to treat sepsis and acute hypoxic resp failure 2/2 covid. guarded prognosis Code status: DNR, per NOK discussion with Dr. Titus, attending physician, on 07/02. DVT ppx: heparin diet: NPO as pt cannot tolerated diet, if he can follow [employer] ASSOCIATE recs diet with risk and textures. [place] thick, pureed, and extra gravy diet. Feeder and alert staff to tray. Addendum - Attending - Attending Attestation Date/Time: 07/03/20 0807 I personally evaluated the patient and discussed the management with Dr. Murrieta I agree with the History, Examination, Assessment and Plan documented above with any addition or exceptions noted below. Increase in HFNC overnight but otherwise clinically improved slightly. Will touch base with niece today and update. overall prognosis is still guarded.
--- NOTE | 2020-07-03 07:58 | RAD ---
Exam: Chest one view HISTORY:COVID 19 pneumonia. Comparison: 07/01/2020 FINDINGS: Cardiac silhouette: Normal Aorta: Unremarkable Pulmonary vessels: Normal Costophrenic angles: Clear LUNGS: Worsening multifocal interstitial and alveolar opacities. Pneumothorax: None Osseous abnormalities: None IMPRESSION: Worsening multifocal interstitial and alveolar opacities. Progression of COVID pneumonia.
--- NOTE | 2020-07-03 07:58 | CON ---
DATE OF CONSULTATION: HISTORY OF PRESENT ILLNESS: Óscar Zhao is an 89-year-old gentleman, from a long-term here locally, presented with shortness of breath. He was placed on a non-rebreather. His saturations were apparently in the 80s and 90s. He is now on high-flow. He was in the ER pretty much all day yesterday, presented at 6 p.m. to the MICU with a DNR status. He is getting some pressors, IV fluids. Unable to get much history from the patient. He has recent diagnosis of coronavirus. PAST MEDICAL HISTORY: 1. Dementia. 2. Dysphagia. 3. CHF. 4. Atrial fibrillation. 5. Anxiety. 6. Multiple falls. 7. Constipation. PAST SURGICAL HISTORY: Appendix. MEDICATIONS: His medicines from the long-term included; 1. Zestril 2.5. 2. Aricept 5. 3. Aspirin 81. 4. Lasix 20. 5. Guaifenesin 10. 6. Potassium. 7. Pepcid. ALLERGIES: NONE. REVIEW OF SYSTEMS: Otherwise, unremarkable. PHYSICAL EXAMINATION: VITAL SIGNS: High-flow, rate of 50, 50%, saturations are 98%. Blood pressure 94/63, pulse 70, respirations 18. CHEST: No wheezing. No crackles. CARDIAC: Normal S1 and S2. No gallops. ABDOMEN: No masses. LABORATORY DATA: White count 8000, hemoglobin and hematocrit are 12 and 38, platelet count is normal. Sodium was 160, today it is 157. Chloride 128. BUN and creatinine are 44 and 1.1. Calcium 7.9. Chest x-ray, not very impressive. Minimal nonspecific infiltrates. Questionable right lung nodule. IMPRESSION: 1. Lamb positive pneumonia. 2. . 3. Prerenal azotemia. 4. Atrial fibrillation. 5. Electrolyte imbalance. I agree with present management, low-dose steroids, convalescent plasma. Avoid all diuretics for the next several days. Since the patient is clearly prerenal try and get him off his pressors. Adjust his antibiotics as per renal failure. I would deescalate the antibiotics rapidly once the culture is back. As said, I do not see much on the x-ray to be worried at this time. This is a consultation note, 70 minutes, 50% direct patient care. Job ID: [id number]
[2020-07-03] MEDS: Potassium Chloride 10 MEQ TAB PO SCH (08:47)
[2020-07-03] MEDS: Vancomycin 1 GM in Premix Bag 1 BAG IVPB SCH (08:47)
[2020-07-03] MEDS: Aspirin 81 mg Enteric Coated Tablet PO SCH (08:48)
[2020-07-03] MEDS: Famotidine 20 MG TAB PO SCH (08:48)
[2020-07-03] MEDS: Heparin 5,000 UNITS/ML VIAL SC SCH ×3 (08:49→22:09)
[2020-07-03] MEDS: Dexamethasone 6 MG in Sodium Chloride 0.9% 50 ML IVPB SCH (08:55)
--- NOTE | 2020-07-03 11:02 | PRG ---
DATE OF SERVICE: 07/03/2020 SUBJECTIVE: This morning, remains in the MICU. OBJECTIVE: VITAL SIGNS: Pulse 70, respiratory rate 18, blood pressure CHEST: No wheezing. No crackles. CARDIAC: Normal S1 and S2. No gallops. ABDOMEN: No masses. LABORATORY DATA: Sodium 152. Lytes are normal. D-dimer is 248. X-ray shows bilateral infiltrates. ASSESSMENT: Respiratory failure, advanced age, dementia, kingston positive pneumonia. PLAN: Still has not received his convalescent plasma. We are going to continue slow hydration. His diuretics being withheld. He is still on broad-spectrum antibiotics. All cultures so far are negative. I will probably discontinue his vancomycin, and I would continue his steroids. Prognosis remains guarded. Job ID: [id number]
[2020-07-03] MEDS: Donepezil HCl 5 MG TAB PO SCH (22:09)
[2020-07-04] MEDS: Piperacillin/Tazobactam 3.375 GM in Sodium Chloride 0.9% 100 ML IVPB SCH (05:04)
[2020-07-04] MEDS: Potassium Chloride 10 MEQ TAB PO SCH (07:11)
[2020-07-04] MEDS: Famotidine 20 MG TAB PO SCH (07:11)
[2020-07-04] MEDS: Aspirin 81 mg Enteric Coated Tablet PO SCH (07:11)
--- NOTE | 2020-07-04 07:13 | PDOC.FM ---
- Subjective Subjective: Pt on 55 L and 55 FIO2 of HFNC on 2.5 dopamine ggt and MAPs of 89 this AM. no acute overnight events NOK, niece jain snot want the pt to receive a peg tube for feeding. will have speech re-eval today as pt is more awake closer to his baseline. Na improved to 143. Free water deficit corrected and IVF's switched to D5LR - Objective MAR Reviewed: Yes Vital Signs & Weight: Vital Signs (12 hours) Temp Pulse Ox 07/04/20 06:00 96.9 F L 07/04/20 01:39 97 07/04/20 01:00 96.5 F L 07/03/20 22:09 96.4 F L 07/03/20 20:00 97 Weight Admit Weight 60.645 kg Weight 62.006 kg Most Recent Monitor Data Heart Rate from ECG 68 NIBP 131/83 NIBP BP-Mean 99 Respiration from ECG 26 SpO2 96 I&O: 07/03/20 07/04/20 07/05/20 06:59 06:59 06:59 Intake Total 3550 2590 Output Total 1900 1425 Balance 1650 1165 Result Diagrams: 07/04/20 07:27 07/04/20 07:27 Phys Exam - Physical Examination on HFNC, resting in bed, mumbling words today. HEENT: sclera anicteric dry MM Neck: supple expiratory rales irregularly irregular Gastrointestinal: soft, no distention, positive bowel sounds Musculoskeletal: no edema, pulses present responds to commands today, squeezes hands when instructed. Deviation from normal: chronic dementia, oriented X0 Skin: normal turgor, cap refill <2 seconds Dx/Plan (1) Acute kidney injury Code(s): N17.9 - ACUTE KIDNEY FAILURE, UNSPECIFIED Status: Acute (2) Acute respiratory failure with hypoxia Code(s): J96.01 - ACUTE RESPIRATORY FAILURE WITH HYPOXIA Status: Acute (3) COVID-19 Code(s): U07.1 - COVID-19 Status: Acute (4) Hypernatremia Code(s): E87.0 - HYPEROSMOLALITY AND HYPERNATREMIA Status: Acute (5) Hypokalemia Code(s): E87.6 - HYPOKALEMIA Status: Acute (6) Sepsis Code(s): A41.9 - SEPSIS, UNSPECIFIED ORGANISM Status: Acute Qualifiers: Sepsis type: sepsis due to unspecified organism Qualified Code(s): A41.9 - Sepsis, unspecified organism - Plan Plan: 1) Sepsis with Acute Hypoxic resp failure 2/2 COVID-19 - on admission: RR 25, on HFNC with O2 sat of 96%, HR>90. improving vitals - admitted to IM for HFNC and Pulm consult. HFNC requirements 55L and 55 FIO2 - Na 161 AM on 07/02 and switched to D5W and improved to 152 on 07/03. switched d5w to 75 ml/hr on 07/03. 143 on 07/04. switched IVF to D5LR @ 100 ml/hr - Received levophed for pressor support in ER and then transferred to IM without pressors. Am lower MAP of high 50's. Started 5 Dopamine ggt on 07/02 AM and improved MAP to 70's. Dopamine ggt lowered to 2.5 and maintaining MAPs of high 80's. will try and wean off today. - continue zosyn and vanc IV antibiotic if procal still positive 07/04. Pharm to dose due to CrCl <30. no growth @ 48 hours on ccx's. Procal increased from 0.66 to 1.76 on 07/03. AM procal pending. - CXR: Possible R sided pulmonary nodule, further imaging recommended. Will discuss care plan with family and goals of care for if further workup is wanted or not with DNR status. - Heparin for dvt ppx - Procal 0.66-> 1.76, D-Dimer 2.43-> 2.4, Ferritin 5198, and CRP 19-> 23 on admission, trending Q48 hours - decadron 6 mg IV daily and received convalescent plasma on 07/03. 2) Indeterminate Troponin levels, down trended - EKG a fib, rate 88. No ST elevations. Likely 2/2 hypoxia - Trop 0.047, 0.037, 0.029 - reported hx of CHF with echo of 55-60 EF in 2018. 3) Hypernatremia, improved - received 30 ml/kg IVF NS in ER. - Na 159 on admission. Na 161 AM of 07/02. gave 500 mL bolus of D5W and then 100 ml/hr D5W on 07/02. - Na 152 on 07/03 AM. - Na 143 on 07/04. switched IVF's to D5LR @ 100 ml/hr 4) Hypokalemia - improved - K 3.3, 3.2, 3.5, 4.1 - replace as necessary 5) LENA - improved - Cr 1.69-> 1.29 -> 0.79-> 0.75 - continue 100 ml/hr D5LR since NPO - urine c/w dehydration on admission, culture sent. continue zosyn until ccx results - 4.6 L free water deficit calculated. Replaced. 6) elevated liver transaminases, improving - likely 2/2 to covid-19 - will trend 7) elevated CK 348 likely secondary to dehydration 8) chronic a fib, not on anticoagulation due to fall risk outweigh benefits. Dispo: admit to IMCU for HFNC and dopamine ggt to treat sepsis and acute hypoxic resp failure 2/2 covid. Try and wean dopamine and HFNC today. Code status: DNR, per NOK discussion with Dr. Titus, attending physician, on 07/02. DVT ppx: heparin diet: NPO as pt cannot tolerated diet, if he can follow [employer] recs to re-eval today Addendum - Attending - Attending Attestation Date/Time: 07/04/20 1043 I personally evaluated the patient and discussed the management with Dr. Murrieta. I agree with the History, Examination, Assessment and Plan documented above with any addition or exceptions noted below. I called and spoke with his niece today. I informed her that he is unable to eat and still requiring pressors. I told her when we attempted to wean him off pressors, his BP dropped. I informed her that at this point, I feel like any intervention we do is only prolonging his suffering. She acknowledged this and stated she would like him to be transitioned to hospice care. CM consult placed. Will arrange hospice then d/c dobutamine and start comfort measures. I offered her the option to come see him in the hospital but she declined at this time. We will be available for questions if she has any.
[2020-07-04 07:34] LABS: #Lymphocytes 0.5 thou/uL (1.20-3.40); #Monocytes 0.1 thou/uL (0.11-0.59); #Neutrophils 7.5 thou/uL (1.40-6.50); %Basophils 0.1 % (0.0-1.0); %Eosinophils 0.1 % (0.0-10.0); %Lymphocytes 6.1 % (21.0-51.0); %Monocytes 1.6 % (0.0-10.0); %Neutrophils 92.2 % (42.0-75.0); Hemoglobin 12.2 g/dL (14.0-18.0); Mean Corpuscular HGB CONC 32.7 g/dL (32.0-36.0); Mean Corpuscular Volume 97.9 fL (78.0-98.0); Mean Platelet Volume 7.3 fL (7.4-10.4); Platelet Count 236 thou/uL (130-400); White Blood Cell (WBC) Count 8.1 thou/uL (4.8-10.8)
[2020-07-04 07:59] LABS: Vancomycin, Trough 6.1 ug/mL
[2020-07-04 08:07] LABS: ALT (SGPT) 24 U/L (8-55); AST (SGOT) 34 U/L (5-34); Albumin 2.7 g/dL (3.4-4.8); Alkaline Phosphatase 61 U/L (40-110); Anion Gap 14 mmol/L (10-20); BUN (Urea Nitrogen) 27 mg/dL (8.4-25.7); Bilirubin, Total 0.7 mg/dL (0.2-1.2); Calc. Creatinine Clearance 59 mL/min (70-130); Calcium 7.8 mg/dL (7.8-10.44); Carbon Dioxide 20 mmol/L (23-31); Chloride 113 mmol/L (98-107); Estimated GFR-MDRD Greater than 90; Globulin 3.6 g/dL (2.4-3.5); Glucose 114 mg/dL (83-110); Potassium 4.1 mmol/L (3.5-5.1); Protein, Total 6.3 g/dL (5.8-8.1); Sodium 143 mmol/L (136-145)
[2020-07-04] MEDS: Heparin 5,000 UNITS/ML VIAL SC SCH ×2 (08:13→16:44)
[2020-07-04] MEDS: Dextrose 5% in Water 1,000 ML IV SCH (08:14)
[2020-07-04] MEDS: Dexamethasone 6 MG in Sodium Chloride 0.9% 50 ML IVPB SCH (08:14)
[2020-07-04] MEDS ORDERED: Famotidine 20 MG TAB PO SCH (09:00)
--- NOTE | 2020-07-04 09:29 | PRG ---
DATE OF SERVICE: 07/04/2020 SUBJECTIVE: Óscar Zhao is an 89-year-old gentleman his temperature 96, blood pressure 131/83, sats are 96%. He is on high-flow. CHEST: Bilateral rhonchi, crackles. CARDIAC: Normal S1, S2. No gallops. ABDOMEN: No masses. LABORATORY DATA: White count 8000. Electrolytes are normal. IMPRESSION: Respiratory failure, kingston positive pneumonia, atrial fibrillation, dementia, congestive heart failure. PLAN: His electrolytes have improved after slow hydration. Continue supportive care. Family is considering stopping his treatment. We will follow. Job ID: [id number]
[2020-07-04] MEDS ORDERED: Dextrose 5%-Lactated Ringers 1,000 ML IV SCH (09:45)
--- NOTE | 2020-07-04 12:40 | PDOC.BPN ---
- Brief Progress Note converstaion held between Dr. Titus, attending physician and next of kin, abbarece, today. Transition care plan to place pt in hospice. Order placed. discussion with CM held and they will reach out to palliative care team as well. planning d/c of dopamine pressor support and transfer to medical floor.
[2020-07-04 17:22] VITALS: BP 100/60; TEMP 97.7
--- NOTE | 2020-07-05 08:09 | DIS ---
DATE OF ADMISSION: 07/01/2020 DATE OF DISCHARGE: 07/04/2020 Admitting and discharge attending: Dr. Titus CONSULTS: 1. Speech eval/treat. 2. Palliative Care. 3. Dietitian. 4. Case Management. 5. Hospice. 6. Pulmonology with Dr. Arredondo. PROCEDURES: Chest x-ray on 07/01, showed right pulmonary nodule. Chest x-ray on 07/03, worsening multifocal interstitial and alveolar opacities. Progression of coronavirus disease pneumonia. DIAGNOSES: 1. Sepsis and acute hypoxic respiratory failure secondary to coronavirus disease 2019 pneumonia. 2. Indeterminate troponin levels. 3. Hypernatremia. 4. Hypokalemia. 5. Acute kidney injury. 6. Elevated liver transaminases. 7. Elevated CK. 8. Chronic atrial fibrillation, rate control. DISCHARGE MEDICATIONS: None as going to hospice. HISTORY OF PRESENT ILLNESS/HOSPITAL COURSE: Óscar Zhao is an 89-year-old gentleman with a past medical history of chronic dementia, alert and oriented x0, at baseline. That was admitted for COVID-19 from [facility]. He developed hypotension and had to be started on pressor support as well as required high- flow nasal cannula. He did not show improvement after couple days of hospital stay and actually worsened. He was unweanable from pressor support as well as from the high-flow nasal cannula. Patient could not pass a speech evaluation to eat and diet with the risk would be too risky for this patient per speech language pathology upon evaluation. Multiple discussions were held with Arcelia, who is the patient's niece who is taking care of him before the fpc. She states that he is to remain DNR and after couple days of hospital stay, she was transitioned him to hospice care. The patient received convalescent plasma on 07/03. Patient received 6 mg of IV Decadron daily for treatment of his COVID pneumonia. Patient had a free water deficit of 4.6 L upon admission and this was slowly corrected over time and also treating his hypernatremia with D5W IV fluids. His fluid therapy was then switched to D5 LR due to his n.p.o. status after free water deficit was corrected. The patient was on vanc and Zosyn IV antibiotics since admission to 07/04 and total of 48 hour blood cultures and urine cultures resulted with no growth. Procal was 0.6 upon admission, on day #2 at 1.7, and on day #3 at 0.8. Day 3 is when antibiotics were discontinued. Also, day 3 is when the patient was transferred over to hospice care. Pressure support was taken off as well as high-flow nasal cannula once on hospice and transition of care over to the hospice team. DISPOSITION: Guarded. PROGNOSIS: Inpatient hospice. LOCATION: Inpatient Hospice in [facility]. DIET: N.p.o. or per hospice recommendations. ACTIVITY: As tolerated by patient. FOLLOWUP: With hospice if able to be discharged from the hospital. It is pleasure caring for this patient and I am getting to know his family members as well. Job ID: [id number] MTDD
--- NOTE | 2020-07-06 13:42 | EKG ---
Test Reason : Blood Pressure : / mmHG Vent. Rate : 088 BPM Atrial Rate : 104 BPM P-R Int : 000 ms QRS Dur : 084 ms QT Int : 362 ms P-R-T Axes : 000 -38 -16 degrees QTc Int : 438 ms Atrial fibrillation Left axis deviation Septal infarct , age undetermined Abnormal ECG Confirmed by ARTEMIO CHANG DO ([id number]), communications editor GUERDA ALONSO ([id number]) on 07/06/2020 1:42:04 PM Referred By: Confirmed By:ARTEMIO CHANG DO
--- NOTE | 2020-07-08 20:00 | PRG ---
DATE OF SERVICE: 07/08/2020 SUBJECTIVE: Mr. Zhao was admitted on 07/02/2020, from [facility] for shortness of breath. He had tested positive for COVID prior to hospitalization. Evaluation was positive for hypoxia and hypotension. Acute kidney injury, electrolyte disturbance, elevated CK, elevated troponins. He required pressors and IV fluids. He was not able to wean off either. He is now unresponsive. Family opted for hospice care. He was extubated and remains comfortable. He is not responsive at total care. Inpatient hospice care with optimized symptom management. Nursing need, IV medication, acute pain management, acute respiratory distress management. OBJECTIVE: VITAL SIGNS: Reviewed. HEENT: Normocephalic, atraumatic. Oxygen is in place. Nonresponsive. LUNGS: Agonal breathing with shallow respirations. Diminished breath sounds. : Schwab is in place EXTREMITIES: No edema. PSYCH: Not responsive. ASSESSMENT AND PLAN: COVID-19 pneumonia with acute respiratory failure, acute kidney injury, electrolyte disturbance, rhabdomyolysis, hypertension. Extubated and requires inpatient hospice care for symptom management and IV medication management. We will continue current care and follow with Hospice Job ID: [id number]
== END 2020-07-04 18:51 | disposition hospice, inpatient (51) | DRG 871 ==
LOC: ERS 08:22 → IMCU/EMU 11:22 → T4-A 07-04 14:39
PROVIDERS: ADMIT Family Medicine; ATTEND Family Medicine
PROC: 8E0ZXY6 Isolation (ICD-10-PCS; principal; 2020-07-01)
PROC: 3E033XZ Introduction of Vasopressor into Peripheral Vein, Percutaneous Approach (ICD-10-PCS; 2020-07-01)
PROC: XW13325 Transfusion of Convalescent Plasma (Nonautologous) into Peripheral Vein, Percutaneous Approach, New Technology Group 5 (ICD-10-PCS; 2020-07-03)
DX: A41.89 Other specified sepsis (principal); U07.1 COVID-19; J12.89 Other viral pneumonia; J96.01 Acute respiratory failure with hypoxia; R65.21 Severe sepsis with septic shock; E87.1 Hypo-osmolality and hyponatremia; N17.9 Acute kidney failure, unspecified; R64 Cachexia; E87.0 Hyperosmolality and hypernatremia; I50.32 Chronic diastolic (congestive) heart failure; Z51.5 Encounter for palliative care; Z68.1 Body mass index [BMI] 19.9 or less, adult; Z66 Do not resuscitate; E87.6 Hypokalemia; F03.90 Unspecified dementia, unspecified severity, without behavioral disturbance, psychotic disturbance, mood disturbance, and anxiety; R29.6 Repeated falls; I48.0 Paroxysmal atrial fibrillation; R79.89 Other specified abnormal findings of blood chemistry; R74.01 Elevation of levels of liver transaminase levels; K59.00 Constipation, unspecified; R13.10 Dysphagia, unspecified; Z90.49 Acquired absence of other specified parts of digestive tract
CPT/HCPCS: 36415; 36416; 36430; 36556; 36600; 51701; 71045; 80048; 80053; 80202; 81003; 81015; 82550; 82553; 82728; 82805; 83605; 83735; 83930; 83935; 84100; 84145; 84300; 84484; 85025; 85379; 86140; 86850; 86900; 86901; 87040; 87086; 93005; 96365; 96366; 96367; 96375; J1100; J1265; J1644; J2543; J3370; J3480; J3490; J7070; J7121; P9017; P9045; U0002

== ENCOUNTER 2020-07-04 19:05 | Inpatient (IN) | payer OTHER ==
[2020-07-04] MEDS ORDERED: Acetaminophen 650 MG Suppository PR PRN (19:30)
[2020-07-04] MEDS ORDERED: Ondansetron PF 4 MG/2 ML Vial IVP PRN (19:30)
[2020-07-04] MEDS ORDERED: Scopolamine 1.5 mg/72 hour Patch TOP PRN (19:30)
[2020-07-04] MEDS: Morphine 2 MG/ML VIAL SLOW IVP SCH (22:13)
[2020-07-04] MEDS: Lorazepam 2 MG/ML VIAL SLOW IVP SCH (22:14)
[2020-07-05] MEDS: Lorazepam 2 MG/ML VIAL SLOW IVP SCH ×6 (00:17→21:11)
[2020-07-05] MEDS: Morphine 2 MG/ML VIAL SLOW IVP SCH ×6 (02:40→23:05)
[2020-07-06] MEDS: Lorazepam 2 MG/ML VIAL SLOW IVP SCH ×6 (01:59→20:29)
[2020-07-06] MEDS: Morphine 2 MG/ML VIAL SLOW IVP SCH ×6 (02:36→21:37)
[2020-07-07] MEDS: Lorazepam 2 MG/ML VIAL SLOW IVP SCH ×6 (00:19→20:55)
[2020-07-07] MEDS: Morphine 2 MG/ML VIAL SLOW IVP SCH ×6 (02:44→22:35)
[2020-07-08] MEDS: Lorazepam 2 MG/ML VIAL SLOW IVP SCH ×7 (00:30→23:20)
[2020-07-08] MEDS: Morphine 2 MG/ML VIAL SLOW IVP SCH ×6 (02:42→21:27)
[2020-07-09] MEDS: Morphine 2 MG/ML VIAL SLOW IVP SCH ×3 (01:36→09:46)
[2020-07-09] MEDS: Lorazepam 2 MG/ML VIAL SLOW IVP SCH ×4 (03:20→12:05)
[2020-07-09 11:43] VITALS: BP 43/28; TEMP 100.3
--- NOTE | 2020-07-11 04:04 | DIS ---
DATE OF ADMISSION: 07/04/2020 DATE OF DISCHARGE: 07/09/2020 DATE OF : 07/09/2020. TIME OF : 12 p.m. PRIMARY DIAGNOSIS: Coronavirus disease 2019 pneumonia. BRIEF HOSPITAL HISTORY: Mr. Zhao is an 89-year-old male, who was hospitalized from [facility] for shortness of breath. He had recent COVID pneumonia. Condition was continuing to decline. He required IV fluids and IV pressors. Family opted for hospice care after he did not improve. He was extubated. He peacefully. Family was notified and body released to home. Job ID: [id number]
== END 2020-07-09 12:00 | disposition expired | DRG 951 ==
LOC: T4-A 19:05
PROVIDERS: ADMIT Family Medicine; ATTEND Family Medicine
DX: Z51.5 Encounter for palliative care (principal); U07.1 COVID-19; J96.01 Acute respiratory failure with hypoxia; A41.89 Other specified sepsis; J12.89 Other viral pneumonia; R64 Cachexia; N17.9 Acute kidney failure, unspecified; E87.0 Hyperosmolality and hypernatremia; Z68.1 Body mass index [BMI] 19.9 or less, adult; Z66 Do not resuscitate; I11.0 Hypertensive heart disease with heart failure; I50.9 Heart failure, unspecified; E87.6 Hypokalemia; F03.90 Unspecified dementia, unspecified severity, without behavioral disturbance, psychotic disturbance, mood disturbance, and anxiety; I48.0 Paroxysmal atrial fibrillation; Z79.82 Long term (current) use of aspirin; Z79.899 Other long term (current) drug therapy; Z90.49 Acquired absence of other specified parts of digestive tract
CPT/HCPCS: J2060; J2270